=== PATIENT | female | born 1975 | race African-American/Black ===

== ENCOUNTER 2017-11-05 22:29 | Emergency (ER) | payer MEDICAID ==
[~2017-11-05] VITALS: Ht 157.5 cm; Wt 111.4 kg
[2017-11-05] MEDS ORDERED: GABA-533 PO (22:49)
[2017-11-05] MEDS ORDERED: NYST30CR9 TP (22:49)
[2017-11-06] MEDS ORDERED: ONDANSETRON HCL 4 MG/2 ML VIAL IVP ONE
[2017-11-06] MEDS ORDERED: MORPHINE SULFATE 4 MG/ML SYRINGE IVP ONE
[2017-11-06] MEDS ORDERED: SODIUM CHLORIDE 0.9% 1,000 ML IV ONE
[2017-11-06 00:31] LABS: BASOPHILS % (AUTO) 1.2 % (0.0-2.0); EOSINOPHILS % (AUTO) 3.1 % (1.0-6.0); HEMATOCRIT 36.1 % (36-46); HEMOGLOBIN 11.8 g/dL (12.0-16.0); LYMPHOCYTES # (AUTO) 2.4 K/uL (1.0-4.8); LYMPHOCYTES % (AUTO) 39.5 % (22.0-44.0); MEAN CORPUSCULAR HEMOGLOBIN 27.9 pg (26.0-34.0); MEAN CORPUSCULAR HGB CONC 32.6 G/dL (31.0-37.0); MEAN CORPUSCULAR VOLUME 86 fL (80-100); MONOCYTES # (AUTO) 0.4 K/uL (0.1-1.0); MONOCYTES % (AUTO) 7.1 % (2.0-9.0); NEUTROPHILS # (AUTO) 2.9 K/uL (1.8-7.7); NEUTROPHILS % (AUTO) 49.1 % (40.0-70.0); PLATELET COUNT (AUTO) 236 K/uL (150-450); RED CELL DISTRIBUTION WIDTH 14.4 % (11.5-14.5)
[2017-11-06 00:40] LABS: ANION GAP 8 mmol/L (8-16); CALCIUM, TOTAL 8.2 mg/dL (8.8-10.5); CARBON DIOXIDE 26 mmol/L (22-29); CHLORIDE 107 mmol/L (98-107); CREATININE 0.81 mg/dL (0.60-1.30); GLOMERULAR FILTR. RATE CALC > 60 mL/min (>60); GLUCOSE,RANDOM 88 mg/dL (70-110); SODIUM SERUM 141 mmol/L (136-145); UREA NITROGEN, BLOOD 9 mg/dL (7-18)
[2017-11-06 00:46] LABS: ALANINE AMINOTRANSFERASE 18 U/L (12-78); ALKALINE PHOSPHATASE 53 U/L (46-116); ASPARTATE AMINOTRANSFERASE 14 U/L (15-37); BILIRUBIN,TOTAL 0.1 mg/dL (0.1-1.0); LIPASE 99 U/L (73-393); TOTAL PROTEIN, SERUM 6.1 g/dL (6.4-8.2)
[2017-11-06 02:22] LABS: APPEARANCE,URINE CLOUDY (CLEAR); BILIRUBIN,URINE NEGATIVE (NEGATIVE); GLUCOSE, URINE (UA) NEGATIVE (NEGATIVE); KETONES,URINE NEGATIVE (NEGATIVE); LEUKOCYTE ESTERASE ,URINE SMALL (NEGATIVE); NITRATE,URINE NEGATIVE (NEGATIVE); OCCULT BLOOD,URINE LARGE (NEGATIVE); PH,URINE 6.5 (5.0-8.0); PROTEIN,URINE TRACE (NEGATIVE); UROBILINOGEN,URINE 0.2 mg/dL (<=1.0)
[2017-11-06 02:52] LABS: BACTERIA,URINE Rare /HPF (None Seen); SQUAMOUS EPITHELIAL CELL,UR Moderate /LPF (None Seen)
[2017-11-06] MEDS ORDERED: NYSTATIN 30 GM OINTMENT TP ONE (03:45)
[2017-11-06] MEDS ORDERED: CIPROFLOXACIN HCL 250 MG TABLET PO ONE (03:45)
[2017-11-06] MEDS ORDERED: METHOCARBAMOL 500 MG TABLET PO ONE (03:45)
[2017-11-06 04:34] VITALS: BP 129/63
== END 2017-11-06 04:40 | disposition home or self-care (01) ==
LOC: EMS 22:31
DX: R10.9 Unspecified abdominal pain (principal); F17.210 Nicotine dependence, cigarettes, uncomplicated
CPT/HCPCS: 36415; 76856; 80053; 81001; 83690; 84703; 85025; 96374; 96375; 99285; J2270; J2405; J7030

== ENCOUNTER 2018-11-07 10:24 | Emergency (ER) | payer MEDICAID ==
[~2018-11-07] VITALS: Ht 160 cm; Wt 115.0 kg
[~2018-11-07 10:24] MED LIST: ZIPR80CA2 PO
[2018-11-07] MEDS ORDERED: ARIP2 PO (10:43)
[2018-11-07] MEDS ORDERED: GABA-529 PO (10:43)
[2018-11-07] MEDS ORDERED: TRAZ-219 PO (10:43)
[2018-11-07] MEDS ORDERED: KETOROLAC TROMETHAMINE 60 MG/2 ML VIAL IM ONE (12:15)
[2018-11-07 12:20] VITALS: BP 133/84
== END 2018-11-07 12:30 | disposition home or self-care (01) ==
LOC: EMS 10:25
DX: G62.9 Polyneuropathy, unspecified (principal); F20.9 Schizophrenia, unspecified; F17.210 Nicotine dependence, cigarettes, uncomplicated; Z79.899 Other long term (current) drug therapy; Z91.018 Allergy to other foods
CPT/HCPCS: 96372; 99283; J1885

== ENCOUNTER 2023-03-23 18:42 | Emergency (ER) | payer SELFPAY ==
[~2023-03-23] VITALS: Ht 165.1 cm; Wt 72.7 kg
[~2023-03-23 18:42] MED LIST changes: +ARIP2TAB27 PO; +GABA-1216 PO; +TRAZ-252 PO; -ZIPR80CA2 PO
[2023-03-23 18:48] VITALS: TEMP 98.6
[2023-03-23 21:49] VITALS: BP 118/84; PULSE 116; RESP 19
[2023-03-23 22:03] LABS: BASOPHILS % (AUTO) 1.1 % (0.0-2.0); EOSINOPHILS % (AUTO) 6.8 % (1.0-6.0); HEMATOCRIT 33.5 % (36-46); HEMOGLOBIN 10.6 g/dL (12.0-16.0); LYMPHOCYTES # (AUTO) 2.2 K/uL (1.0-4.8); LYMPHOCYTES % (AUTO) 42.1 % (22.0-44.0); MEAN CORPUSCULAR HEMOGLOBIN 26.4 pg (26.0-34.0); MEAN CORPUSCULAR HGB CONC 31.6 G/dL (31.0-37.0); MEAN CORPUSCULAR VOLUME 83 fL (80-100); MONOCYTES # (AUTO) 0.5 K/uL (0.1-1.0); MONOCYTES % (AUTO) 9.8 % (2.0-9.0); NEUTROPHILS # (AUTO) 2.1 K/uL (1.8-7.7); NEUTROPHILS % (AUTO) 40.2 % (40.0-70.0); PLATELET COUNT (AUTO) 331 K/uL (150-450); RED BLOOD CELL COUNT(AUTO) 4.02 MIL/uL (4.00-5.20); RED CELL DISTRIBUTION WIDTH 17.5 % (11.5-14.5)
[2023-03-23 22:11] LABS: ANION GAP 11 mmol/L (8-16); CARBON DIOXIDE 25 mmol/L (22-29); CHLORIDE 100 mmol/L (98-107); CREATININE 1.01 mg/dL (0.60-1.30); GLOMERULAR FILTR. RATE CALC > 60 mL/min (>60); GLUCOSE,RANDOM 96 mg/dL (70-110); POTASSIUM 3.2 mmol/L (3.5-5.1); SODIUM SERUM 136 mmol/L (136-145)
[2023-03-23] MEDS ORDERED: OLANZapine 5 MG TABLET PO ONE (22:15)
[2023-03-23] MEDS ORDERED: DiphenhydrAMINE HCL 25 MG CAPSULE PO ONE (22:15)
[2023-03-23 22:17] LABS: ALANINE AMINOTRANSFERASE 13 U/L (12-78); ALBUMIN 3.8 g/dL (3.4-5.0); ALKALINE PHOSPHATASE 64 U/L (46-116); ASPARTATE AMINOTRANSFERASE 19 U/L (15-37); BILIRUBIN,TOTAL 0.3 mg/dL (0.1-1.0); TOTAL PROTEIN, SERUM 7.8 g/dL (6.4-8.2)
[2023-03-23] MEDS ORDERED: DIPH-1243 PO (22:24)
[2023-03-23] MEDS ORDERED: AMOX500C2 PO (22:24)
[2023-03-23] MEDS ORDERED: AMOXICILLIN TRIHYDRATE 250 MG CAPSULE PO ONE (22:30)
== END 2023-03-23 23:00 | disposition home or self-care (01) ==
LOC: EMS 18:42
DX: H66.91 Otitis media, unspecified, right ear (principal); F20.9 Schizophrenia, unspecified; F17.210 Nicotine dependence, cigarettes, uncomplicated; Z98.51 Tubal ligation status; Z88.1 Allergy status to other antibiotic agents; Z91.018 Allergy to other foods; Z98.890 Other specified postprocedural states
CPT/HCPCS: 99284; 80053; 85025; 36415; G0480

== ENCOUNTER 2023-03-27 03:00 | Emergency (ER) | payer MEDICAID ==
[~2023-03-27] VITALS: Ht 160 cm; Wt 87.0 kg
[~2023-03-27 03:00] MED LIST changes: +AMOX500C2 PO; +DIPH-1243 PO
[2023-03-27] MEDS ORDERED: SODIUM CHLORIDE 0.9% 1,000 ML IV ONE (04:15)
[2023-03-27] MEDS ORDERED: KETOROLAC TROMETHAMINE 30 MG/ML VIAL IM ONE (06:00)
[2023-03-27] MEDS ORDERED: METOCLOPRAMIDE HCL 5 MG/ML 2 ML VIAL IVP ONE (06:00)
[2023-03-27 07:09] VITALS: BP 119/78; PULSE 72; RESP 18; TEMP 97.3
== END 2023-03-27 07:17 | disposition home or self-care (01) ==
LOC: EMS 03:01
DX: R51.9 Headache, unspecified (principal); F20.9 Schizophrenia, unspecified; F17.210 Nicotine dependence, cigarettes, uncomplicated; Z98.51 Tubal ligation status; Z98.890 Other specified postprocedural states; Z91.018 Allergy to other foods; Z88.1 Allergy status to other antibiotic agents
CPT/HCPCS: 99285; 70450; 96372; J1885

== ENCOUNTER 2023-04-01 10:21 | Emergency (ER) | payer MEDICAID ==
[~2023-04-01] VITALS: Ht 160 cm; Wt 75.0 kg
[2023-04-01 10:22] VITALS: TEMP 98.4
[2023-04-01] MEDS ORDERED: ACET-66 PO (13:10)
[2023-04-01] MEDS ORDERED: ARIP5TAB37 PO (13:10)
[2023-04-01] MEDS ORDERED: HYDR-4808 PO (13:10)
[2023-04-01 13:13] VITALS: BP 134/86; PULSE 92; RESP 18
== END 2023-04-01 13:23 | disposition home or self-care (01) ==
LOC: EMS 10:21
DX: R44.0 Auditory hallucinations (principal); F41.9 Anxiety disorder, unspecified; F17.210 Nicotine dependence, cigarettes, uncomplicated; Z98.51 Tubal ligation status; Z98.890 Other specified postprocedural states; Z88.1 Allergy status to other antibiotic agents; Z91.018 Allergy to other foods
CPT/HCPCS: 99284; Z7502

== ENCOUNTER 2023-04-05 16:55 | Emergency (ER) | payer MEDICAID ==
[~2023-04-05] VITALS: Ht 160 cm; Wt 90.9 kg
[~2023-04-05 16:55] MED LIST changes: +ACET-66 PO; +ARIP5TAB37 PO; +HYDR-4808 PO
[2023-04-05 16:58] VITALS: BP 113/71; PULSE 116; RESP 18; TEMP 98.6
[2023-04-05] MEDS ORDERED: IBUPROFEN 600 MG TABLET PO ONE (18:45)
[2023-04-05] MEDS ORDERED: HydrOXYzine PAMOATE 50 MG CAPSULE PO ONE (18:45)
[2023-04-05] MEDS ORDERED: HALOPERIDOL 5 MG TABLET PO ONE (18:45)
[2023-04-05 19:09] LABS: AMPHET/METH SCREEN,URINE POSITIVE (NEGATIVE); BARBITURATE SCREEN, URINE NEGATIVE (NEGATIVE); BENZODIAZEPINES SCREEN,URINE NEGATIVE (NEGATIVE); CANNABINOID SCREEN,URINE NEGATIVE (NEGATIVE); COCAINE SCREEN,URINE NEGATIVE (NEGATIVE); METHADONE SCREEN, URINE NEGATIVE (NEGATIVE); OPIATE SCREEN,URINE NEGATIVE (NEGATIVE); PHENCYCLIDINE SCREEN,URINE NEGATIVE (NEGATIVE)
[2023-04-05 19:44] LABS: BASOPHILS % (AUTO) 0.8 % (0.0-2.0); EOSINOPHILS % (AUTO) 4.3 % (1.0-6.0); HEMATOCRIT 33.1 % (36-46); HEMOGLOBIN 10.4 g/dL (12.0-16.0); LYMPHOCYTES # (AUTO) 1.9 K/uL (1.0-4.8); LYMPHOCYTES % (AUTO) 49.8 % (22.0-44.0); MEAN CORPUSCULAR HEMOGLOBIN 26.6 pg (26.0-34.0); MEAN CORPUSCULAR HGB CONC 31.4 G/dL (31.0-37.0); MEAN CORPUSCULAR VOLUME 85 fL (80-100); MONOCYTES # (AUTO) 0.6 K/uL (0.1-1.0); MONOCYTES % (AUTO) 16.2 % (2.0-9.0); NEUTROPHILS # (AUTO) 1.1 K/uL (1.8-7.7); NEUTROPHILS % (AUTO) 28.9 % (40.0-70.0); PLATELET COUNT (AUTO) 215 K/uL (150-450); RED BLOOD CELL COUNT(AUTO) 3.91 MIL/uL (4.00-5.20); RED CELL DISTRIBUTION WIDTH 16.5 % (11.5-14.5)
[2023-04-05 19:47] LABS: ANION GAP 13 mmol/L (8-16); CALCIUM, TOTAL 8.9 mg/dL (8.8-10.5); CARBON DIOXIDE 28 mmol/L (22-29); CHLORIDE 103 mmol/L (98-107); CREATININE 0.93 mg/dL (0.60-1.30); GLOMERULAR FILTR. RATE CALC > 60 mL/min (>60); GLUCOSE,RANDOM 92 mg/dL (70-110); POTASSIUM 4.3 mmol/L (3.5-5.1); SODIUM SERUM 144 mmol/L (136-145)
[2023-04-05 19:53] LABS: ALANINE AMINOTRANSFERASE 13 U/L (12-78); ALBUMIN 3.7 g/dL (3.4-5.0); ALKALINE PHOSPHATASE 59 U/L (46-116); ASPARTATE AMINOTRANSFERASE 22 U/L (15-37); BILIRUBIN,TOTAL 0.1 mg/dL (0.1-1.0); TOTAL PROTEIN, SERUM 7.2 g/dL (6.4-8.2)
== END 2023-04-05 22:08 | disposition home or self-care (01) ==
LOC: EMS 16:56
DX: F20.9 Schizophrenia, unspecified (principal); M25.551 Pain in right hip; F12.10 Cannabis abuse, uncomplicated; F17.210 Nicotine dependence, cigarettes, uncomplicated; Z98.51 Tubal ligation status; Z98.890 Other specified postprocedural states; Z91.018 Allergy to other foods; Z88.2 Allergy status to sulfonamides
CPT/HCPCS: 99284; 80053; 85025; 36415; 80307; G0480

== ENCOUNTER 2023-04-07 19:23 | Inpatient (IN) | payer MEDICAID ==
[~2023-04-07] VITALS: Ht 160 cm; Wt 89.4 kg
[2023-04-07] MEDS ORDERED: ZOLPIDEM TARTRATE 10 MG TABLET PO PRN (20:45)
[2023-04-07] MEDS ORDERED: PROMETHAZINE HCL 25 MG TABLET PO PRN (20:45)
[2023-04-07] MEDS ORDERED: TUBERCULIN, PURIFIED PROTEIN DERIVATIVE 5 TU/0.1 ML SYRINGE ID ONE (20:45)
[2023-04-07] MEDS ORDERED: OLANZapine 5 MG RAPDIS TABLET PO PRN (20:45)
[2023-04-07] MEDS ORDERED: LOPERAMIDE HCL 2 MG CAPSULE PO PRN (20:45)
[2023-04-07] MEDS ORDERED: ACETAMINOPHEN 325 MG TABLET PO PRN (20:45)
[2023-04-07] MEDS ORDERED: GuaiFENesin/D-METHORPHAN [SUGAR-FREE] 200-20MG/10 ML SYRUP UDCUP PO PRN (20:45)
[2023-04-07] MEDS ORDERED: HydrOXYzine PAMOATE 50 MG CAPSULE PO PRN (20:45)
[2023-04-07] MEDS ORDERED: MAGNESIUM HYDROXIDE SUSPENSION 30 ML UDCUP PO PRN (20:45)
[2023-04-07] MEDS ORDERED: OLANZapine 5 MG RAPDIS TABLET PO SCH (21:00)
[2023-04-07 23:11] LABS: GLUCOMETER DEV NAME(LOC) POC.BV
[2023-04-07] MEDS: MELATONIN 5 MG TABLET PO SCH (23:30)
[2023-04-08] MEDS ORDERED: PNEUMOCOCCAL VACCINE POLYVALENT 0.5 ML SYRINGE [PPSV23] IM. ONE (01:00)
[2023-04-08 01:11] VITALS: BP 102/56; PULSE 104; RESP 17; TEMP 97.8; O2SAT 98
[2023-04-08 08:04] LABS: BASOPHILS % (AUTO) 0.4 % (0.0-2.0); EOSINOPHILS % (AUTO) 5.9 % (1.0-6.0); HEMATOCRIT 32.7 % (36-46); HEMOGLOBIN 10.6 g/dL (12.0-16.0); LYMPHOCYTES # (AUTO) 1.7 K/uL (1.0-4.8); LYMPHOCYTES % (AUTO) 48.5 % (22.0-44.0); MEAN CORPUSCULAR HEMOGLOBIN 27.4 pg (26.0-34.0); MEAN CORPUSCULAR HGB CONC 32.3 G/dL (31.0-37.0); MEAN CORPUSCULAR VOLUME 85 fL (80-100); MONOCYTES # (AUTO) 0.4 K/uL (0.1-1.0); MONOCYTES % (AUTO) 12.2 % (2.0-9.0); NEUTROPHILS # (AUTO) 1.2 K/uL (1.8-7.7); PLATELET COUNT (AUTO) 193 K/uL (150-450); RED BLOOD CELL COUNT(AUTO) 3.86 MIL/uL (4.00-5.20); RED CELL DISTRIBUTION WIDTH 16.6 % (11.5-14.5)
[2023-04-08 08:24] LABS: HEMOGLOBIN A1C 5.1 % (3.8-5.6)
[2023-04-08 08:34] LABS: ALANINE AMINOTRANSFERASE 10 U/L (12-78); ALBUMIN 2.7 g/dL (3.4-5.0); ALKALINE PHOSPHATASE 46 U/L (46-116); ANION GAP 10 mmol/L (8-16); ASPARTATE AMINOTRANSFERASE 11 U/L (15-37); BILIRUBIN,TOTAL 0.1 mg/dL (0.1-1.0); CALCIUM, TOTAL 8.3 mg/dL (8.8-10.5); CARBON DIOXIDE 27 mmol/L (22-29); CHLORIDE 105 mmol/L (98-107); CHOL/HDL RATIO 3.4 (3.9-5.7); CHOLESTEROL 144 mg/dL (131-200); CREATININE 0.85 mg/dL (0.60-1.30); FREE T4 (FREE THYROXINE) 0.68 ng/dL (0.76-1.46); GLOMERULAR FILTR. RATE CALC > 60 mL/min (>60); GLUCOSE,RANDOM 86 mg/dL (70-110); HDL CHOLESTEROL 42 mg/dL (40-60); LDL CHOL (CALC.) 90 mg/dL (0-130); POTASSIUM 4.3 mmol/L (3.5-5.1); SODIUM SERUM 142 mmol/L (136-145); THYROID STIMULATING HORMONE 0.41 uIU/mL (0.36-3.74); TOTAL PROTEIN, SERUM 5.6 g/dL (6.4-8.2); TRIGLYCERIDES 62 mg/dL (15-150)
[2023-04-08 08:44] VITALS: BP 102/63; PULSE 64; RESP 17; TEMP 98; O2SAT 100
[2023-04-08] MEDS: BuPROPion HCL XL 150 MG ER TABLET PO SCH (08:45)
[2023-04-08] MEDS: THIAMINE 100 MG TABLET PO SCH ×2 (08:45→17:17)
[2023-04-08] MEDS: FOLIC ACID 1 MG TABLET PO SCH (08:45)
[2023-04-08] MEDS: OMEGA-3/DHA/EPA/FISH OIL 1,000 MG CAPSULE PO SCH (08:45)
[2023-04-08] MEDS ORDERED: PALIPERIDONE PALMITATE 234 MG/1.5 ML SYRINGE IM ONE (09:00)
[2023-04-08] MEDS: MULTIVITAMINS WITH MINERALS, THERAPEUTIC TABLET PO SCH (09:03)
[2023-04-08 20:31] VITALS: BP 100/68; PULSE 81; RESP 18; TEMP 98.2; O2SAT 95
[2023-04-08] MEDS: ARIPiprazole 15 MG TABLET PO SCH (20:44)
[2023-04-08] MEDS: TraZODone HCL 50 MG TABLET PO SCH (20:44)
[2023-04-08] MEDS: MELATONIN 5 MG TABLET PO SCH (20:44)
[2023-04-08] MEDS: PRAZOSIN HCL 1 MG CAPSULE PO SCH (20:44)
[2023-04-09 08:36] VITALS: BP 113/84; PULSE 97; RESP 18; TEMP 97.9; O2SAT 100
[2023-04-09] MEDS: MULTIVITAMINS WITH MINERALS, THERAPEUTIC TABLET PO SCH (08:54)
[2023-04-09] MEDS: THIAMINE 100 MG TABLET PO SCH ×2 (08:54→16:46)
[2023-04-09] MEDS: OMEGA-3/DHA/EPA/FISH OIL 1,000 MG CAPSULE PO SCH (08:54)
[2023-04-09] MEDS: LamoTRIgine 25 MG TABLET PO SCH (08:55)
[2023-04-09] MEDS: BuPROPion HCL XL 150 MG ER TABLET PO SCH (08:55)
[2023-04-09] MEDS: DEXTROMETHORPHAN HBR/QUINIDINE 20/10 MG CAPSULE PO SCH (08:56)
[2023-04-09] MEDS: FOLIC ACID 1 MG TABLET PO SCH (08:56)
[2023-04-09] MEDS: LORazepam 2 MG TABLET PO PRN (16:46)
[2023-04-09 20:37] VITALS: BP 101/68; PULSE 80; RESP 19; TEMP 98.1; O2SAT 99
[2023-04-09] MEDS: ARIPiprazole 15 MG TABLET PO SCH (20:46)
[2023-04-09] MEDS: MELATONIN 5 MG TABLET PO SCH (20:46)
[2023-04-09] MEDS: TraZODone HCL 50 MG TABLET PO SCH (20:46)
[2023-04-09] MEDS: PRAZOSIN HCL 1 MG CAPSULE PO SCH (22:55)
[2023-04-10 08:33] VITALS: BP 110/68; PULSE 90; RESP 19; TEMP 98.8; O2SAT 99
[2023-04-10] MEDS: DEXTROMETHORPHAN HBR/QUINIDINE 20/10 MG CAPSULE PO SCH (09:57)
[2023-04-10] MEDS: OMEGA-3/DHA/EPA/FISH OIL 1,000 MG CAPSULE PO SCH (09:57)
[2023-04-10] MEDS: LamoTRIgine 25 MG TABLET PO SCH (09:58)
[2023-04-10] MEDS: BuPROPion HCL XL 150 MG ER TABLET PO SCH (09:58)
[2023-04-10] MEDS: FOLIC ACID 1 MG TABLET PO SCH (09:59)
[2023-04-10] MEDS: MULTIVITAMINS WITH MINERALS, THERAPEUTIC TABLET PO SCH (09:59)
[2023-04-10] MEDS: THIAMINE 100 MG TABLET PO SCH ×2 (09:59→17:11)
[2023-04-10] MEDS: MAG HYDROX/AL HYDROX/SIMETH ES 30 ML SUSPENSION UDCUP PO PRN (14:42)
[2023-04-10] MEDS ORDERED: NICOTINE POLACRILEX 2 MG LOZENGE PO PRN ×2 (14:45)
[2023-04-10] MEDS: TraZODone HCL 50 MG TABLET PO SCH (20:01)
[2023-04-10] MEDS: ARIPiprazole 10 MG TABLET PO SCH (20:01)
[2023-04-10] MEDS: MELATONIN 5 MG TABLET PO SCH (20:02)
[2023-04-10 20:27] VITALS: BP 104/67; PULSE 74; RESP 19; TEMP 97.5; O2SAT 96
[2023-04-10] MEDS: PRAZOSIN HCL 1 MG CAPSULE PO SCH (20:43)
[2023-04-11 08:41] VITALS: BP 102/61; PULSE 65; RESP 19; TEMP 97.7; O2SAT 95
[2023-04-11] MEDS: FOLIC ACID 1 MG TABLET PO SCH (09:33)
[2023-04-11] MEDS: THIAMINE 100 MG TABLET PO SCH ×2 (09:33→16:17)
[2023-04-11] MEDS: DEXTROMETHORPHAN HBR/QUINIDINE 20/10 MG CAPSULE PO SCH (09:33)
[2023-04-11] MEDS: OMEGA-3/DHA/EPA/FISH OIL 1,000 MG CAPSULE PO SCH (09:33)
[2023-04-11] MEDS: LamoTRIgine 25 MG TABLET PO SCH (09:33)
[2023-04-11] MEDS: MULTIVITAMINS WITH MINERALS, THERAPEUTIC TABLET PO SCH (09:34)
[2023-04-11] MEDS: BuPROPion HCL XL 150 MG ER TABLET PO SCH (09:34)
[2023-04-11] MEDS ORDERED: OLANZapine 5 MG RAPDIS TABLET PO PRN (11:45)
[2023-04-11] MEDS: LORazepam 2 MG TABLET PO PRN (15:56)
[2023-04-11] MEDS: OLANZapine 10 MG RAPDIS TABLET PO SCH (20:35)
[2023-04-11] MEDS: PRAZOSIN HCL 1 MG CAPSULE PO SCH (20:35)
[2023-04-11] MEDS: TraZODone HCL 50 MG TABLET PO SCH (20:35)
[2023-04-11] MEDS: MELATONIN 5 MG TABLET PO SCH (20:35)
[2023-04-11] MEDS: ARIPiprazole 10 MG TABLET PO SCH (20:35)
[2023-04-11 21:20] VITALS: BP 109/70; PULSE 67; RESP 19; TEMP 98.2; O2SAT 100
[2023-04-12] MEDS: DEXTROMETHORPHAN HBR/QUINIDINE 20/10 MG CAPSULE PO SCH (08:46)
[2023-04-12] MEDS: OMEGA-3/DHA/EPA/FISH OIL 1,000 MG CAPSULE PO SCH (08:46)
[2023-04-12] MEDS: FOLIC ACID 1 MG TABLET PO SCH (08:47)
[2023-04-12] MEDS: MULTIVITAMINS WITH MINERALS, THERAPEUTIC TABLET PO SCH (08:47)
[2023-04-12] MEDS: LamoTRIgine 25 MG TABLET PO SCH (08:47)
[2023-04-12] MEDS: BuPROPion HCL XL 150 MG ER TABLET PO SCH (08:47)
[2023-04-12] MEDS: THIAMINE 100 MG TABLET PO SCH ×2 (08:47→16:27)
[2023-04-12 09:00] VITALS: BP 110/71; PULSE 100; RESP 20; TEMP 98; O2SAT 98
[2023-04-12] MEDS ORDERED: PALIPERIDONE PALMITATE 156 MG/ML SYRINGE IM ONE (09:00)
[2023-04-12] MEDS: LORazepam 2 MG TABLET PO PRN (16:27)
[2023-04-12] MEDS: MAG HYDROX/AL HYDROX/SIMETH ES 30 ML SUSPENSION UDCUP PO PRN (16:29)
[2023-04-12] MEDS: ARIPiprazole 10 MG TABLET PO SCH (20:15)
[2023-04-12] MEDS: MELATONIN 5 MG TABLET PO SCH (20:15)
[2023-04-12] MEDS: TraZODone HCL 50 MG TABLET PO SCH (20:15)
[2023-04-12] MEDS: PRAZOSIN HCL 1 MG CAPSULE PO SCH (20:15)
[2023-04-12] MEDS: OLANZapine 10 MG RAPDIS TABLET PO SCH (20:15)
[2023-04-12 20:28] VITALS: BP 113/71; PULSE 105; RESP 18; TEMP 97.6; O2SAT 98
[2023-04-13] MEDS: LamoTRIgine 25 MG TABLET PO SCH (08:24)
[2023-04-13] MEDS: MULTIVITAMINS WITH MINERALS, THERAPEUTIC TABLET PO SCH (08:24)
[2023-04-13] MEDS: BuPROPion HCL XL 150 MG ER TABLET PO SCH (08:24)
[2023-04-13] MEDS: OMEGA-3/DHA/EPA/FISH OIL 1,000 MG CAPSULE PO SCH (08:24)
[2023-04-13] MEDS: FOLIC ACID 1 MG TABLET PO SCH (08:24)
[2023-04-13] MEDS: DEXTROMETHORPHAN HBR/QUINIDINE 20/10 MG CAPSULE PO SCH (08:24)
[2023-04-13] MEDS: THIAMINE 100 MG TABLET PO SCH ×2 (08:24→16:43)
[2023-04-13 08:31] VITALS: RESP 19
[2023-04-13] MEDS: MAG HYDROX/AL HYDROX/SIMETH ES 30 ML SUSPENSION UDCUP PO PRN (14:37)
[2023-04-13] MEDS: LORazepam 2 MG TABLET PO PRN (14:37)
[2023-04-13 20:16] VITALS: BP 109/68; PULSE 99; RESP 18; TEMP 97.8; O2SAT 98
[2023-04-13] MEDS: OLANZapine 10 MG RAPDIS TABLET PO SCH (20:37)
[2023-04-13] MEDS: ARIPiprazole 10 MG TABLET PO SCH (20:37)
[2023-04-13] MEDS: TraZODone HCL 50 MG TABLET PO SCH (20:38)
[2023-04-13] MEDS: MELATONIN 5 MG TABLET PO SCH (20:38)
[2023-04-13] MEDS: PRAZOSIN HCL 1 MG CAPSULE PO SCH (20:38)
[2023-04-14 08:46] VITALS: BP 100/67; PULSE 69; RESP 18; TEMP 97.3; O2SAT 100
[2023-04-14] MEDS: OMEGA-3/DHA/EPA/FISH OIL 1,000 MG CAPSULE PO SCH (09:19)
[2023-04-14] MEDS: THIAMINE 100 MG TABLET PO SCH ×2 (09:20→16:26)
[2023-04-14] MEDS: LamoTRIgine 25 MG TABLET PO SCH (09:20)
[2023-04-14] MEDS: FOLIC ACID 1 MG TABLET PO SCH (09:20)
[2023-04-14] MEDS: BuPROPion HCL XL 150 MG ER TABLET PO SCH (09:20)
[2023-04-14] MEDS: DEXTROMETHORPHAN HBR/QUINIDINE 20/10 MG CAPSULE PO SCH (09:20)
[2023-04-14] MEDS: MULTIVITAMINS WITH MINERALS, THERAPEUTIC TABLET PO SCH (09:21)
[2023-04-14] MEDS ORDERED: MELA5TAB40 PO (15:18)
[2023-04-14] MEDS ORDERED: TRAZ-252 PO (15:18)
[2023-04-14] MEDS ORDERED: LAMO25TA36 PO ×2 (15:18→15:45)
[2023-04-14] MEDS ORDERED: OMEG-135 PO (15:18)
[2023-04-14] MEDS ORDERED: OLAN10TA26 PO (15:18)
[2023-04-14] MEDS ORDERED: BUPR-49 PO (15:18)
[2023-04-14] MEDS ORDERED: BUPR-50 PO (15:39)
[2023-04-14] MEDS ORDERED: MELA5TAB21 PO (15:47)
[2023-04-14] MEDS ORDERED: OLAN10TA74 PO (15:48)
[2023-04-14] MEDS ORDERED: OMEG10005 PO (15:49)
== END 2023-04-14 17:30 | disposition home or self-care (01) | DRG 750 ==
LOC: B2S 22:56
PROVIDERS: ADMIT Psychiatry & Neurology Psychiatry; ATTEND Psychiatry & Neurology Psychiatry
DX: F25.1 Schizoaffective disorder, depressive type (principal); Z91.148 Patient's other noncompliance with medication regimen for other reason; R45.851 Suicidal ideations; D64.9 Anemia, unspecified; J44.9 Chronic obstructive pulmonary disease, unspecified; F19.10 Other psychoactive substance abuse, uncomplicated; F17.210 Nicotine dependence, cigarettes, uncomplicated; Z20.822 Contact with and (suspected) exposure to COVID-19; F32.A Depression, unspecified; D72.819 Decreased white blood cell count, unspecified; E66.9 Obesity, unspecified; F43.10 Post-traumatic stress disorder, unspecified; Z79.899 Other long term (current) drug therapy; Z59.00 Homelessness unspecified; Z68.34 Body mass index [BMI] 34.0-34.9, adult; Z88.8 Allergy status to other drugs, medicaments and biological substances; Z91.018 Allergy to other foods
CPT/HCPCS: 80053; 80061; 83036; 84439; 84443; 85025; 86592; 87081; 90732; Q9967

== ENCOUNTER 2023-05-07 18:13 | Emergency (ER) | payer MEDICAID ==
[~2023-05-07] VITALS: Ht 154.9 cm; Wt 85.5 kg
[~2023-05-07 18:13] MED LIST changes: -ACET-66 PO; -AMOX500C2 PO; -ARIP2TAB27 PO; -ARIP5TAB37 PO; +BUPR-49 PO; +BUPR-50 PO; -DIPH-1243 PO; -GABA-1216 PO; -HYDR-4808 PO; +LAMO25TA36 PO; +MELA5TAB21 PO; +MELA5TAB40 PO; +OLAN10TA26 PO; +OLAN10TA74 PO; +OMEG-135 PO; +OMEG10005 PO
[2023-05-07 18:54] VITALS: TEMP 98.6
[2023-05-07 20:24] LABS: BASOPHILS % (AUTO) 0.7 % (0.0-2.0); EOSINOPHILS % (AUTO) 5.9 % (1.0-6.0); HEMATOCRIT 33.6 % (36-46); HEMOGLOBIN 10.9 g/dL (12.0-16.0); LYMPHOCYTES # (AUTO) 2.2 K/uL (1.0-4.8); LYMPHOCYTES % (AUTO) 49.2 % (22.0-44.0); MEAN CORPUSCULAR HEMOGLOBIN 27.5 pg (26.0-34.0); MEAN CORPUSCULAR HGB CONC 32.4 G/dL (31.0-37.0); MEAN CORPUSCULAR VOLUME 85 fL (80-100); MONOCYTES # (AUTO) 0.5 K/uL (0.1-1.0); MONOCYTES % (AUTO) 10.4 % (2.0-9.0); NEUTROPHILS # (AUTO) 1.5 K/uL (1.8-7.7); NEUTROPHILS % (AUTO) 33.8 % (40.0-70.0); PLATELET COUNT (AUTO) 251 K/uL (150-450); RED BLOOD CELL COUNT(AUTO) 3.96 MIL/uL (4.00-5.20); RED CELL DISTRIBUTION WIDTH 16.3 % (11.5-14.5); WHITE BLOOD COUNT (AUTO) 4.5 K/uL (4.5-11.0)
[2023-05-07 20:33] LABS: ANION GAP 7 mmol/L (8-16); CALCIUM, TOTAL 8.7 mg/dL (8.8-10.5); CARBON DIOXIDE 27 mmol/L (22-29); CHLORIDE 103 mmol/L (98-107); GLOMERULAR FILTR. RATE CALC > 60 mL/min (>60); GLUCOSE,RANDOM 70 mg/dL (70-110); SODIUM SERUM 137 mmol/L (136-145); UREA NITROGEN, BLOOD 12 mg/dL (7-18)
[2023-05-07 20:39] LABS: ALANINE AMINOTRANSFERASE 11 U/L (12-78); ALBUMIN 3.6 g/dL (3.4-5.0); ALKALINE PHOSPHATASE 58 U/L (46-116); ASPARTATE AMINOTRANSFERASE 14 U/L (15-37); BILIRUBIN,TOTAL 0.1 mg/dL (0.1-1.0); TOTAL PROTEIN, SERUM 7.1 g/dL (6.4-8.2)
[2023-05-07 20:53] LABS: ALCOHOL, BLOOD (SERUM) < 3 mg/dL (0-10)
[2023-05-07 21:40] LABS: ALCOHOL, URINE DRUG SCREEN NEGATIVE (NEGATIVE); AMPHET/METH SCREEN,URINE POSITIVE (NEGATIVE); BARBITURATE SCREEN, URINE NEGATIVE (NEGATIVE); BENZODIAZEPINES SCREEN,URINE NEGATIVE (NEGATIVE); CANNABINOID SCREEN,URINE POSITIVE (NEGATIVE); COCAINE SCREEN,URINE NEGATIVE (NEGATIVE); METHADONE SCREEN, URINE NEGATIVE (NEGATIVE); OPIATE SCREEN,URINE NEGATIVE (NEGATIVE); PHENCYCLIDINE SCREEN,URINE POSITIVE (NEGATIVE)
[2023-05-07 22:30] VITALS: BP 104/64; PULSE 71; RESP 17
== END 2023-05-07 23:40 | disposition home or self-care (01) ==
LOC: EMS 18:14
DX: S92.592A Other fracture of left lesser toe(s), initial encounter for closed fracture (principal); F20.9 Schizophrenia, unspecified; F12.90 Cannabis use, unspecified, uncomplicated; F15.90 Other stimulant use, unspecified, uncomplicated; F17.210 Nicotine dependence, cigarettes, uncomplicated; Z98.51 Tubal ligation status; Z91.018 Allergy to other foods; Z88.1 Allergy status to other antibiotic agents; Z98.890 Other specified postprocedural states; W18.39XA Other fall on same level, initial encounter; Y93.89 Activity, other specified; Y92.89 Other specified places as the place of occurrence of the external cause; Y99.8 Other external cause status
CPT/HCPCS: 80053; 85025; 36415; 73620; 99284; 80307 ×2; G0480

== ENCOUNTER 2023-05-10 14:55 | Emergency (ER) | payer MEDICAID ==
[~2023-05-10] VITALS: Ht 160 cm; Wt 84.1 kg
[2023-05-10 15:16] VITALS: BP 119/85; PULSE 94; RESP 18; TEMP 98.2
[2023-05-10 16:11] LABS: APPEARANCE,URINE CLEAR (CLEAR); BILIRUBIN,URINE NEGATIVE (NEGATIVE); COLOR,URINE LIGHT YELLOW (YELLOW); GLUCOSE, URINE (UA) NEGATIVE (NEGATIVE); KETONES,URINE NEGATIVE (NEGATIVE); LEUKOCYTE ESTERASE ,URINE NEGATIVE (NEGATIVE); NITRATE,URINE NEGATIVE (NEGATIVE); OCCULT BLOOD,URINE LARGE (NEGATIVE); PH,URINE 6.5 (5.0-8.0); PROTEIN,URINE NEGATIVE (NEGATIVE); SPECIFIC GRAVITIY, URINE 1.021 (1.003-1.030); UROBILINOGEN,URINE <=1.0 mg/dL (<=1.0)
[2023-05-10 16:39] LABS: SQUAMOUS EPITHELIAL CELL,UR Few /LPF (None Seen)
[2023-05-10 16:41] LABS: RBC,URINE 0-2 /HPF (0-2); WBC,URINE 0-2 /HPF (0-5)
[2023-05-10 16:43] LABS: BACTERIA,URINE None Seen /HPF (None Seen)
[2023-05-10] MEDS ORDERED: AZITHROMYCIN 500 MG TABLET PO ONE (17:00)
[2023-05-10] MEDS ORDERED: LIDOCAINE/PF 1% 2 ML VIAL IM ONE (17:00)
[2023-05-10] MEDS ORDERED: CefTRIAXone SODIUM 1 GM/VIAL IM ONE (17:00)
== END 2023-05-10 17:04 | disposition home or self-care (01) ==
LOC: EMS 15:00
DX: N34.2 Other urethritis (principal); F20.9 Schizophrenia, unspecified; F17.210 Nicotine dependence, cigarettes, uncomplicated; F12.90 Cannabis use, unspecified, uncomplicated; F15.90 Other stimulant use, unspecified, uncomplicated; Z98.51 Tubal ligation status; Z98.890 Other specified postprocedural states; Z88.1 Allergy status to other antibiotic agents; Z91.018 Allergy to other foods
CPT/HCPCS: 99283; 81001; 87491; 87591; 96372; J0696; J3490; Q9967

== ENCOUNTER 2023-06-07 08:26 | Emergency (ER) | payer MEDICAID, OTHER ==
[~2023-06-07] VITALS: Ht 160 cm; Wt 97.7 kg
[2023-06-07 08:39] VITALS: TEMP 97.8
[2023-06-07] MEDS ORDERED: EMTR1TAB53 PO ×2 (08:43→10:09)
[2023-06-07 09:01] LABS: APPEARANCE,URINE CLEAR (CLEAR); BILIRUBIN,URINE NEGATIVE (NEGATIVE); COLOR,URINE LIGHT YELLOW (YELLOW); GLUCOSE, URINE (UA) NEGATIVE (NEGATIVE); KETONES,URINE NEGATIVE (NEGATIVE); LEUKOCYTE ESTERASE ,URINE NEGATIVE (NEGATIVE); NITRATE,URINE NEGATIVE (NEGATIVE); OCCULT BLOOD,URINE LARGE (NEGATIVE); PH,URINE 6.5 (5.0-8.0); PROTEIN,URINE NEGATIVE (NEGATIVE); SPECIFIC GRAVITIY, URINE 1.013 (1.003-1.030); UROBILINOGEN,URINE <=1.0 mg/dL (<=1.0)
[2023-06-07 09:06] LABS: BACTERIA,URINE None Seen /HPF (None Seen); SQUAMOUS EPITHELIAL CELL,UR Few /LPF (None Seen); WBC,URINE None Seen /HPF (0-5)
[2023-06-07 09:28] LABS: BASOPHILS % (AUTO) 1.2 % (0.0-2.0); EOSINOPHILS % (AUTO) 3.1 % (1.0-6.0); HEMATOCRIT 38.4 % (36-46); HEMOGLOBIN 12.3 g/dL (12.0-16.0); LYMPHOCYTES # (AUTO) 1.6 K/uL (1.0-4.8); LYMPHOCYTES % (AUTO) 40.3 % (22.0-44.0); MEAN CORPUSCULAR HEMOGLOBIN 27.4 pg (26.0-34.0); MEAN CORPUSCULAR VOLUME 86 fL (80-100); MONOCYTES # (AUTO) 0.4 K/uL (0.1-1.0); MONOCYTES % (AUTO) 10.3 % (2.0-9.0); NEUTROPHILS # (AUTO) 1.8 K/uL (1.8-7.7); NEUTROPHILS % (AUTO) 45.1 % (40.0-70.0); PLATELET COUNT (AUTO) 284 K/uL (150-450); RED BLOOD CELL COUNT(AUTO) 4.48 MIL/uL (4.00-5.20); RED CELL DISTRIBUTION WIDTH 15.7 % (11.5-14.5)
[2023-06-07 09:43] LABS: ANION GAP 10 mmol/L (8-16); CALCIUM, TOTAL 8.7 mg/dL (8.8-10.5); CARBON DIOXIDE 26 mmol/L (22-29); CHLORIDE 101 mmol/L (98-107); CREATININE 0.88 mg/dL (0.60-1.30); GLOMERULAR FILTR. RATE CALC > 60 mL/min (>60); GLUCOSE,RANDOM 75 mg/dL (70-110); POTASSIUM 4.1 mmol/L (3.5-5.1); SODIUM SERUM 137 mmol/L (136-145); UREA NITROGEN, BLOOD 13 mg/dL (7-18)
[2023-06-07 09:49] LABS: ALANINE AMINOTRANSFERASE 16 U/L (12-78); ALBUMIN 3.6 g/dL (3.4-5.0); ALKALINE PHOSPHATASE 52 U/L (46-116); ASPARTATE AMINOTRANSFERASE 13 U/L (15-37); BILIRUBIN,TOTAL 0.2 mg/dL (0.1-1.0); TOTAL PROTEIN, SERUM 7.5 g/dL (6.4-8.2)
[2023-06-07] MEDS ORDERED: MELA5TAB40 PO (10:09)
[2023-06-07] MEDS ORDERED: OMEG10005 PO (10:09)
[2023-06-07] MEDS ORDERED: HYDR59LO7 TP (10:09)
[2023-06-07] MEDS ORDERED: LAMO25TA36 PO (10:09)
[2023-06-07] MEDS ORDERED: TRAZ-252 PO (10:09)
[2023-06-07] MEDS ORDERED: BUPR-49 PO (10:09)
[2023-06-07 10:15] VITALS: BP 120/70; PULSE 85; RESP 14
== END 2023-06-07 10:41 | disposition home or self-care (01) ==
LOC: EMS 08:57
DX: F25.9 Schizoaffective disorder, unspecified (principal); L29.9 Pruritus, unspecified; F12.90 Cannabis use, unspecified, uncomplicated; F15.90 Other stimulant use, unspecified, uncomplicated; F17.210 Nicotine dependence, cigarettes, uncomplicated; Z98.51 Tubal ligation status; Z98.890 Other specified postprocedural states; Z91.018 Allergy to other foods; Z88.1 Allergy status to other antibiotic agents
CPT/HCPCS: 80053; 81001; 84703; 85025; 99283

== ENCOUNTER 2023-09-30 09:25 | Emergency (ER) | payer OTHER ==
[~2023-09-30] VITALS: Ht 157.5 cm; Wt 110.0 kg
[~2023-09-30 09:25] MED LIST changes: -BUPR-50 PO; +EMTR1TAB53 PO; +HYDR59LO7 TP; -MELA5TAB21 PO; -OLAN10TA26 PO; -OLAN10TA74 PO; -OMEG-135 PO
[2023-09-30 09:33] VITALS: BP 118/88; PULSE 120; RESP 22; TEMP 96.5
[2023-09-30 11:28] LABS: BASOPHILS % (AUTO) 0.7 % (0.0-2.0); HEMATOCRIT 40.1 % (36-46); HEMOGLOBIN 12.6 g/dL (12.0-16.0); MEAN CORPUSCULAR HEMOGLOBIN 27.7 pg (26.0-34.0); MEAN CORPUSCULAR HGB CONC 31.5 G/dL (31.0-37.0); MEAN CORPUSCULAR VOLUME 88 fL (80-100); MONOCYTES # (AUTO) 0.4 K/uL (0.1-1.0); NEUTROPHILS # (AUTO) 3.4 K/uL (1.8-7.7); NEUTROPHILS % (AUTO) 55.3 % (40.0-70.0); PLATELET COUNT (AUTO) 259 K/uL (150-450); RED BLOOD CELL COUNT(AUTO) 4.56 MIL/uL (4.00-5.20); WHITE BLOOD COUNT (AUTO) 6.1 K/uL (4.5-11.0)
[2023-09-30 11:45] LABS: ANION GAP 12 mmol/L (8-16); CALCIUM, TOTAL 8.7 mg/dL (8.8-10.5); CARBON DIOXIDE 23 mmol/L (22-29); CHLORIDE 102 mmol/L (98-107); CREATININE 0.85 mg/dL (0.60-1.30); GLOMERULAR FILTR. RATE CALC > 60 mL/min (>60); GLUCOSE,RANDOM 110 mg/dL (70-110); POTASSIUM 3.7 mmol/L (3.5-5.1); SODIUM SERUM 137 mmol/L (136-145); UREA NITROGEN, BLOOD 14 mg/dL (7-18)
[2023-09-30 11:54] LABS: ALANINE AMINOTRANSFERASE 25 U/L (12-78); ALBUMIN 3.8 g/dL (3.4-5.0); ALCOHOL, BLOOD (SERUM) < 3 mg/dL (0-10); ALKALINE PHOSPHATASE 69 U/L (46-116); ASPARTATE AMINOTRANSFERASE 25 U/L (15-37); BILIRUBIN,TOTAL 0.3 mg/dL (0.1-1.0); TOTAL PROTEIN, SERUM 7.3 g/dL (6.4-8.2)
[2023-09-30 13:09] LABS: COVID AG,FIA SOURCE NASAL SWAB
[2023-09-30 13:35] LABS: SARS-COV2 (COVID) ANTIGEN,FIA Negative (Negative)
== END 2023-09-30 14:30 | disposition home or self-care (01) ==
LOC: EMS 09:25
DX: F20.0 Paranoid schizophrenia (principal); F15.10 Other stimulant abuse, uncomplicated; F11.90 Opioid use, unspecified, uncomplicated; F17.210 Nicotine dependence, cigarettes, uncomplicated; F12.90 Cannabis use, unspecified, uncomplicated; Z59.00 Homelessness unspecified; Z20.822 Contact with and (suspected) exposure to COVID-19; Z98.51 Tubal ligation status; Z98.890 Other specified postprocedural states; Z88.1 Allergy status to other antibiotic agents; Z91.011 Allergy to milk products; Z91.018 Allergy to other foods
CPT/HCPCS: 99283; 87426; 80053; 85025; 36415; G0480

== ENCOUNTER 2023-10-07 18:20 | Inpatient (IN) | payer MEDICAID ==
[~2023-10-07] VITALS: Ht 160 cm; Wt 98.4 kg
[2023-10-07] MEDS ORDERED: HALOPERIDOL 5 MG TABLET PO PRN (20:30)
[2023-10-07 20:50] LABS: GLUCOMETER DEV NAME(LOC) POC.BV; POC SARS-COV2 AG, FIA NEGATIVE (NEGATIVE)
[2023-10-07] MEDS: INFLUENZA VIRUS VACCINE QVS 2023-24 (6MO+)/PF 60 MCG/0.5 ML SYRINGE IM. ONE (21:45)
[2023-10-07 22:35] VITALS: BP 111/74; PULSE 100; RESP 18; TEMP 97.6
[2023-10-08 08:12] VITALS: BP 118/77; PULSE 96; RESP 17; TEMP 97.8; O2SAT 96
[2023-10-08 08:32] LABS: EOSINOPHILS % (AUTO) 7.8 % (1.0-6.0); HEMATOCRIT 37.9 % (36-46); HEMOGLOBIN 12.4 g/dL (12.0-16.0); MEAN CORPUSCULAR HEMOGLOBIN 28.4 pg (26.0-34.0); MEAN CORPUSCULAR HGB CONC 32.8 G/dL (31.0-37.0); MEAN CORPUSCULAR VOLUME 87 fL (80-100); MONOCYTES # (AUTO) 0.5 K/uL (0.1-1.0); MONOCYTES % (AUTO) 9.5 % (2.0-9.0); NEUTROPHILS # (AUTO) 2.3 K/uL (1.8-7.7); NEUTROPHILS % (AUTO) 42.7 % (40.0-70.0); PLATELET COUNT (AUTO) 298 K/uL (150-450); RED BLOOD CELL COUNT(AUTO) 4.38 MIL/uL (4.00-5.20); RED CELL DISTRIBUTION WIDTH 14.7 % (11.5-14.5); WHITE BLOOD COUNT (AUTO) 5.3 K/uL (4.5-11.0)
[2023-10-08 08:46] LABS: HEMOGLOBIN A1C 5.5 % (3.8-5.6)
[2023-10-08 09:06] LABS: ALANINE AMINOTRANSFERASE 19 U/L (12-78); ALBUMIN 3.3 g/dL (3.4-5.0); ALKALINE PHOSPHATASE 62 U/L (46-116); ANION GAP 7 mmol/L (8-16); ASPARTATE AMINOTRANSFERASE 16 U/L (15-37); BILIRUBIN,TOTAL 0.3 mg/dL (0.1-1.0); CALCIUM, TOTAL 8.9 mg/dL (8.8-10.5); CARBON DIOXIDE 28 mmol/L (22-29); CHLORIDE 104 mmol/L (98-107); CHOL/HDL RATIO 3.8 (3.9-5.7); CHOLESTEROL 169 mg/dL (131-200); CREATININE 0.84 mg/dL (0.60-1.30); FREE T4 (FREE THYROXINE) 1.01 ng/dL (0.76-1.46); GLOMERULAR FILTR. RATE CALC > 60 mL/min (>60); GLUCOSE,RANDOM 105 mg/dL (70-110); HDL CHOLESTEROL 44 mg/dL (40-60); LDL CHOL (CALC.) 110 mg/dL (0-130); POTASSIUM 3.9 mmol/L (3.5-5.1); SODIUM SERUM 139 mmol/L (136-145); THYROID STIMULATING HORMONE 1.02 uIU/mL (0.36-3.74); TOTAL PROTEIN, SERUM 6.8 g/dL (6.4-8.2); TRIGLYCERIDES 75 mg/dL (15-150); UREA NITROGEN, BLOOD 14 mg/dL (7-18)
[2023-10-08] MEDS: LURASIDONE HCL 20 MG TABLET PO ONE (12:15)
[2023-10-08] MEDS: LURASIDONE HCL 20 MG TABLET PO SCH (17:28)
[2023-10-08] MEDS ORDERED: ALBUTEROL SULFATE HFA 90 MCG/PUFF 8 GM INHALER IH PRN (17:45)
[2023-10-08] MEDS ORDERED: CloNIDine HCL 0.1 MG TABLET PO PRN (17:45)
[2023-10-08] MEDS ORDERED: NICOTINE 14 MG/24 HOUR PATCH TD PRN (17:45)
[2023-10-08] MEDS ORDERED: MAGNESIUM HYDROXIDE SUSPENSION 30 ML UDCUP PO PRN (17:45)
[2023-10-08] MEDS ORDERED: MAG HYDROX/ALUMINUM HYD/SIMETH ES 30 ML SUSPENSION UDCUP PO PRN (17:45)
[2023-10-08] MEDS ORDERED: DOCUSATE SODIUM 100 MG CAPSULE PO PRN (17:45)
[2023-10-08] MEDS ORDERED: PETROLATUM,WHITE 28 GM JELLY TP PRN (17:45)
[2023-10-08] MEDS ORDERED: GuaiFENesin/D-METHORPHAN [SUGAR-FREE] 200-20MG/10 ML SYRUP UDCUP PO PRN (17:45)
[2023-10-08 20:09] VITALS: BP 122/62; PULSE 110; RESP 19; TEMP 98.3; O2SAT 94
[2023-10-08] MEDS: MELATONIN 5 MG TABLET PO SCH (20:59)
[2023-10-09 08:05] VITALS: BP 101/59; PULSE 86; RESP 16; TEMP 97.9; O2SAT 96
[2023-10-09 08:33] LABS: HEMOGLOBIN A1C 5.5 % (3.8-5.6)
[2023-10-09 08:49] LABS: CHOL/HDL RATIO 4.4 (3.9-5.7); THYROID STIMULATING HORMONE 0.91 uIU/mL (0.36-3.74)
[2023-10-09] MEDS: OMEGA-3/DHA/EPA/FISH OIL 1,000 MG CAPSULE PO SCH (09:15)
[2023-10-09] MEDS: EMTRICITABINE/TENOFOVIR 200-300 MG TABLET PO SCH (09:16)
[2023-10-09] MEDS: HYDROCORTISONE 2.5% TP SCH (09:17)
[2023-10-09 13:45] VITALS: BP 122/73; PULSE 83; RESP 18; TEMP 97.9; O2SAT 99
[2023-10-09] MEDS: LORazepam 2 MG TABLET PO PRN (13:47)
[2023-10-09 20:30] VITALS: BP 97/56; PULSE 86; RESP 16; TEMP 97.5; O2SAT 98
[2023-10-10 08:15] VITALS: BP 102/61; PULSE 91; RESP 19; TEMP 96.9; O2SAT 96
[2023-10-10 15:47] VITALS: RESP 19; O2SAT 96
[2023-10-10] MEDS: IBUPROFEN 400 MG TABLET PO PRN (15:47)
[2023-10-10 16:47] VITALS: RESP 18; O2SAT 96
[2023-10-10 20:45] VITALS: BP 128/90; PULSE 88; RESP 17; TEMP 97.6; O2SAT 99
[2023-10-11 16:28] VITALS: BP 107/86; PULSE 106; RESP 18; TEMP 97.6; O2SAT 99
[2023-10-11 23:55] VITALS: RESP 18
[2023-10-12] MEDS: ZOLPIDEM TARTRATE 10 MG TABLET PO PRN (00:53)
[2023-10-12 08:14] VITALS: BP 102/61; PULSE 86; RESP 17; TEMP 97.8; O2SAT 95
[2023-10-12 15:38] VITALS: RESP 17
[2023-10-12] MEDS: LORazepam 1 MG TABLET PO PRN (15:38)
[2023-10-12] MEDS: ACETAMINOPHEN 325 MG TABLET PO PRN (15:38)
[2023-10-12 16:38] VITALS: RESP 16
[2023-10-12] MEDS: LURASIDONE HCL 40 MG TABLET PO SCH (16:49)
[2023-10-12 20:56] VITALS: BP 123/74; PULSE 95; RESP 20; TEMP 97.4; O2SAT 99
[2023-10-13 08:20] VITALS: BP 140/89; PULSE 100; RESP 20; TEMP 97.9; O2SAT 99
[2023-10-13 16:51] VITALS: RESP 19; O2SAT 99
[2023-10-13 17:51] VITALS: RESP 18; O2SAT 99
[2023-10-13 20:49] VITALS: BP 107/70; PULSE 98; RESP 17; TEMP 97.3; O2SAT 99
[2023-10-14 08:37] VITALS: BP 117/76; PULSE 100; RESP 17; TEMP 97.7; O2SAT 99
[2023-10-14] MEDS ORDERED: LURA40TA2 PO (09:36)
[2023-10-14] MEDS ORDERED: LURA40TA4 PO (10:10)
== END 2023-10-14 12:50 | disposition home or self-care (01) | DRG 750 ==
LOC: B2S 20:33
PROVIDERS: ADMIT Psychiatry & Neurology Child & Adolescent Psychiatry; ATTEND Psychiatry & Neurology Child & Adolescent Psychiatry
DX: F25.1 Schizoaffective disorder, depressive type (principal); E66.9 Obesity, unspecified; G47.00 Insomnia, unspecified; Z20.822 Contact with and (suspected) exposure to COVID-19; Z88.8 Allergy status to other drugs, medicaments and biological substances; F17.200 Nicotine dependence, unspecified, uncomplicated; Z68.38 Body mass index [BMI] 38.0-38.9, adult; F32.A Depression, unspecified
CPT/HCPCS: 80053; 80061; 83036; 84439; 84443; 85025; Q9967

== ENCOUNTER 2023-12-06 17:50 | Emergency (ER) | payer MEDICAID, OTHER ==
[~2023-12-06] VITALS: Ht 160 cm; Wt 99.1 kg
[~2023-12-06 17:50] MED LIST changes: -BUPR-49 PO; -HYDR59LO7 TP; -LAMO25TA36 PO; +LURA40TA2 PO; +LURA40TA4 PO; -OMEG10005 PO; -TRAZ-252 PO
[2023-12-06] MEDS ORDERED: SUMA25TA15 PO ×2 (18:02→19:39)
[2023-12-06] MEDS ORDERED: LAMO25TA36 PO (18:02)
[2023-12-06] MEDS ORDERED: DIPH-1243 PO (18:02)
[2023-12-06] MEDS ORDERED: TRAZ-252 PO (18:02)
[2023-12-06] MEDS ORDERED: ARIP5TAB37 PO ×2 (18:02→19:39)
[2023-12-06] MEDS ORDERED: ACET-66 PO (18:02)
[2023-12-06] MEDS ORDERED: HYDR-4061 PO (18:02)
[2023-12-06 18:59] LABS: BASOPHILS % (AUTO) 1.2 % (0.0-2.0); HEMATOCRIT 41.2 % (36-46); HEMOGLOBIN 13.2 g/dL (12.0-16.0); LYMPHOCYTES # (AUTO) 1.7 K/uL (1.0-4.8); LYMPHOCYTES % (AUTO) 40.6 % (22.0-44.0); MEAN CORPUSCULAR HGB CONC 32.1 G/dL (31.0-37.0); MEAN CORPUSCULAR VOLUME 88 fL (80-100); MONOCYTES # (AUTO) 0.3 K/uL (0.1-1.0); MONOCYTES % (AUTO) 6.7 % (2.0-9.0); NEUTROPHILS % (AUTO) 48.5 % (40.0-70.0); PLATELET COUNT (AUTO) 256 K/uL (150-450); RED BLOOD CELL COUNT(AUTO) 4.71 MIL/uL (4.00-5.20); WHITE BLOOD COUNT (AUTO) 4.1 K/uL (4.5-11.0)
[2023-12-06] MEDS ORDERED: IBUP-1492 PO (19:39)
[2023-12-06] MEDS ORDERED: EMTR1TAB53 PO (19:39)
[2023-12-06] MEDS ORDERED: LURA40TA2 PO (19:39)
[2023-12-06] MEDS: HYDROCODONE/ACETAMINOPHEN 5-325 MG TABLET PO ONE (19:40)
[2023-12-06 19:50] LABS: ANION GAP 12 mmol/L (8-16); CALCIUM, TOTAL 8.5 mg/dL (8.8-10.5); CARBON DIOXIDE 27 mmol/L (22-29); CHLORIDE 105 mmol/L (98-107); CREATININE 1.03 mg/dL (0.60-1.30); GLOMERULAR FILTR. RATE CALC > 60 mL/min (>60); GLUCOSE,RANDOM 62 mg/dL (70-110); POTASSIUM 3.3 mmol/L (3.5-5.1); SODIUM SERUM 144 mmol/L (136-145); UREA NITROGEN, BLOOD 9 mg/dL (7-18)
[2023-12-06 20:46] VITALS: BP 135/89; PULSE 89; RESP 18; TEMP 97.3
== END 2023-12-06 20:56 | disposition home or self-care (01) ==
LOC: EMS 17:55
DX: G43.909 Migraine, unspecified, not intractable, without status migrainosus (principal); F20.9 Schizophrenia, unspecified; F17.210 Nicotine dependence, cigarettes, uncomplicated; F12.90 Cannabis use, unspecified, uncomplicated; F15.90 Other stimulant use, unspecified, uncomplicated; Z98.51 Tubal ligation status; Z88.1 Allergy status to other antibiotic agents; Z91.011 Allergy to milk products; Z91.018 Allergy to other foods; Z98.890 Other specified postprocedural states
CPT/HCPCS: 80048; 84703; 85025; 99283

== ENCOUNTER 2023-12-12 18:50 | Emergency (ER) | payer OTHER ==
[~2023-12-12] VITALS: Ht 162.6 cm; Wt 101.0 kg
[~2023-12-12 18:50] MED LIST changes: +ACET-66 PO; +ARIP5TAB37 PO; +DIPH-1243 PO; +HYDR-4061 PO; +IBUP-1492 PO; +LAMO25TA36 PO; -LURA40TA4 PO; -MELA5TAB40 PO; +SUMA25TA15 PO; +TRAZ-252 PO
[2023-12-12 19:04] VITALS: BP 115/67; PULSE 106; RESP 16; TEMP 98.3
[2023-12-12] MEDS: LURASIDONE HCL 40 MG TABLET PO ONE (23:42)
[2023-12-12] MEDS: SUMAtriptan SUCCINATE 25 MG TABLET PO ONE (23:42)
[2023-12-12] MEDS: ACETAMINOPHEN/CODEINE 300-30 MG TABLET PO ONE (23:42)
[2023-12-13] MEDS ORDERED: LURA40TA2 PO (00:41)
[2023-12-13] MEDS ORDERED: SUMA25TA15 PO (00:41)
[2023-12-13] MEDS ORDERED: ARIP5TAB37 PO (00:41)
== END 2023-12-13 01:22 | disposition home or self-care (01) ==
LOC: EMS 18:58
DX: F25.9 Schizoaffective disorder, unspecified (principal); G43.909 Migraine, unspecified, not intractable, without status migrainosus; F17.210 Nicotine dependence, cigarettes, uncomplicated; F12.90 Cannabis use, unspecified, uncomplicated; F15.90 Other stimulant use, unspecified, uncomplicated; Z98.51 Tubal ligation status; Z88.1 Allergy status to other antibiotic agents; Z91.011 Allergy to milk products; Z91.018 Allergy to other foods; Z98.890 Other specified postprocedural states
CPT/HCPCS: 99284; Z7502; Z7610

== ENCOUNTER 2023-12-13 17:05 | Inpatient (IN) | payer MEDICAID ==
[~2023-12-13] VITALS: Ht 160 cm; Wt 100.2 kg
[2023-12-13 18:05] LABS: GLUCOMETER DEV NAME(LOC) POC.BV; POC SARS-COV2 AG, FIA NEGATIVE (NEGATIVE)
[2023-12-13] MEDS ORDERED: HALOPERIDOL 5 MG TABLET PO PRN (18:45)
[2023-12-13 19:00] VITALS: BP 119/90; PULSE 90; RESP 18; TEMP 97.5; O2SAT 100
[2023-12-13 22:46] VITALS: BP 119/90; PULSE 90; TEMP 97.5
[2023-12-14 08:17] LABS: BASOPHILS % (AUTO) 0.6 % (0.0-2.0); EOSINOPHILS % (AUTO) 5.3 % (1.0-6.0); HEMATOCRIT 34.6 % (36-46); HEMOGLOBIN 11.4 g/dL (12.0-16.0); LYMPHOCYTES # (AUTO) 1.1 K/uL (1.0-4.8); LYMPHOCYTES % (AUTO) 34.8 % (22.0-44.0); MEAN CORPUSCULAR HEMOGLOBIN 28.2 pg (26.0-34.0); MEAN CORPUSCULAR VOLUME 86 fL (80-100); MONOCYTES # (AUTO) 0.3 K/uL (0.1-1.0); MONOCYTES % (AUTO) 11.1 % (2.0-9.0); NEUTROPHILS # (AUTO) 1.5 K/uL (1.8-7.7); NEUTROPHILS % (AUTO) 48.2 % (40.0-70.0); PLATELET COUNT (AUTO) 216 K/uL (150-450); RED BLOOD CELL COUNT(AUTO) 4.03 MIL/uL (4.00-5.20); RED CELL DISTRIBUTION WIDTH 14.9 % (11.5-14.5); WHITE BLOOD COUNT (AUTO) 3.1 K/uL (4.5-11.0)
[2023-12-14 08:38] LABS: ALANINE AMINOTRANSFERASE 14 U/L (12-78); ALBUMIN 2.6 g/dL (3.4-5.0); ALKALINE PHOSPHATASE 55 U/L (46-116); ANION GAP 8 mmol/L (8-16); ASPARTATE AMINOTRANSFERASE 12 U/L (15-37); CALCIUM, TOTAL 7.9 mg/dL (8.8-10.5); CARBON DIOXIDE 27 mmol/L (22-29); CHLORIDE 103 mmol/L (98-107); CHOL/HDL RATIO 4.1 (3.9-5.7); CHOLESTEROL 146 mg/dL (131-200); CREATININE 0.84 mg/dL (0.60-1.30); FREE T4 (FREE THYROXINE) 0.84 ng/dL (0.76-1.46); GLOMERULAR FILTR. RATE CALC > 60 mL/min (>60); GLUCOSE,RANDOM 98 mg/dL (70-110); HDL CHOLESTEROL 36 mg/dL (40-60); LDL CHOL (CALC.) 87 mg/dL (0-130); POTASSIUM 3.9 mmol/L (3.5-5.1); SODIUM SERUM 138 mmol/L (136-145); T4 (THYROXINE) 7.7 mcg/dL (4.7-13.3); THYROID STIMULATING HORMONE 0.59 uIU/mL (0.36-3.74); TOTAL PROTEIN, SERUM 5.9 g/dL (6.4-8.2); TRIGLYCERIDES 113 mg/dL (15-150); UREA NITROGEN, BLOOD 12 mg/dL (7-18)
[2023-12-14 08:39] LABS: BILIRUBIN,TOTAL 0.1 mg/dL (0.1-1.0)
[2023-12-14 08:50] VITALS: BP 140/88; PULSE 80; RESP 17; TEMP 98; O2SAT 100
[2023-12-14] MEDS ORDERED: OMEPRAZOLE 20 MG CAPSULE PO PRN (12:00)
[2023-12-14] MEDS ORDERED: MAG HYDROX/ALUMINUM HYD/SIMETH ES 30 ML SUSPENSION UDCUP PO PRN (12:00)
[2023-12-14] MEDS ORDERED: PETROLATUM,WHITE 28 GM JELLY TP PRN (12:00)
[2023-12-14] MEDS ORDERED: ONDANSETRON HCL 4 MG TABLET PO PRN (12:00)
[2023-12-14] MEDS ORDERED: BACITRACIN 28 GM OINTMENT TP PRN (12:00)
[2023-12-14] MEDS ORDERED: DOCUSATE SODIUM 100 MG CAPSULE PO PRN (12:00)
[2023-12-14] MEDS ORDERED: BENZOCAINE/MENTHOL LOZENGE PO PRN (12:00)
[2023-12-14] MEDS ORDERED: CloNIDine HCL 0.1 MG TABLET PO PRN (12:00)
[2023-12-14] MEDS ORDERED: ALBUTEROL SULFATE HFA 90 MCG/PUFF 8 GM INHALER IH PRN (12:00)
[2023-12-14] MEDS ORDERED: MAGNESIUM HYDROXIDE SUSPENSION 30 ML UDCUP PO PRN (12:00)
[2023-12-14] MEDS ORDERED: LOPERAMIDE HCL 2 MG CAPSULE PO PRN (12:00)
[2023-12-14] MEDS ORDERED: DiphenhydrAMINE HCL 25 MG CAPSULE PO PRN (12:00)
[2023-12-14] MEDS ORDERED: SUMAtriptan SUCCINATE 25 MG TABLET PO PRN (12:00)
[2023-12-14] MEDS ORDERED: ACETAMINOPHEN 325 MG TABLET PO PRN (12:00)
[2023-12-14] MEDS: EMTRICITABINE/TENOFOVIR 200-300 MG TABLET PO SCH (15:39)
[2023-12-14] MEDS: OLANZapine 10 MG TABLET PO SCH (20:35)
[2023-12-14 21:00] VITALS: BP 115/70; PULSE 77; RESP 17; TEMP 97.3; O2SAT 97
[2023-12-15 08:24] VITALS: BP 140/88; PULSE 85; RESP 18; TEMP 97.5; O2SAT 96
[2023-12-15 20:53] VITALS: BP 103/68; PULSE 89; RESP 16; TEMP 98.8; O2SAT 97
[2023-12-15] MEDS: ZOLPIDEM TARTRATE 10 MG TABLET PO PRN (21:32)
[2023-12-15] MEDS: LORazepam 2 MG TABLET PO PRN (21:33)
[2023-12-16 08:45] VITALS: BP 123/75; PULSE 80; RESP 16; TEMP 98.3; O2SAT 100
[2023-12-16 20:04] VITALS: BP 106/67; PULSE 100; RESP 17; TEMP 98.8; O2SAT 97
[2023-12-17 09:04] VITALS: BP 117/73; PULSE 85; RESP 18; TEMP 98.7; O2SAT 98
[2023-12-17 14:14] VITALS: RESP 18; O2SAT 98
[2023-12-17] MEDS: IBUPROFEN 600 MG TABLET PO PRN (14:14)
[2023-12-17 15:14] VITALS: RESP 17; O2SAT 98
[2023-12-17 20:32] VITALS: BP 107/71; PULSE 98; RESP 18; TEMP 98.6; O2SAT 97
[2023-12-18 08:52] VITALS: BP 103/64; PULSE 91; RESP 17; TEMP 97.8; O2SAT 98
[2023-12-18] MEDS ORDERED: EMTR1TAB53 PO (12:05)
[2023-12-18] MEDS ORDERED: OLAN10TA74 PO (12:07)
== END 2023-12-18 13:00 | disposition home or self-care (01) | DRG 750 ==
LOC: B2S 17:30
PROVIDERS: ADMIT Psychiatry & Neurology Psychiatry; ATTEND Psychiatry & Neurology Psychiatry
DX: F25.9 Schizoaffective disorder, unspecified (principal); R45.851 Suicidal ideations; E66.9 Obesity, unspecified; F41.9 Anxiety disorder, unspecified; F12.90 Cannabis use, unspecified, uncomplicated; Z20.822 Contact with and (suspected) exposure to COVID-19; G47.00 Insomnia, unspecified; G43.909 Migraine, unspecified, not intractable, without status migrainosus; K59.00 Constipation, unspecified; Z88.1 Allergy status to other antibiotic agents; Z91.011 Allergy to milk products; Z91.018 Allergy to other foods; Z68.39 Body mass index [BMI] 39.0-39.9, adult; Z79.899 Other long term (current) drug therapy
CPT/HCPCS: 80053; 80061; 84436; 84439; 84443; 85025; 86592

== ENCOUNTER 2024-03-14 15:14 | Inpatient (IN) | payer MEDICAID ==
[~2024-03-14] VITALS: Ht 160 cm; Wt 101.0 kg
[~2024-03-14 15:14] MED LIST changes: -ACET-66 PO; -ARIP5TAB37 PO; -DIPH-1243 PO; -HYDR-4061 PO; -IBUP-1492 PO; -LAMO25TA36 PO; -LURA40TA2 PO; +OLAN10TA74 PO; -SUMA25TA15 PO; -TRAZ-252 PO
[2024-03-14] MEDS ORDERED: HALOPERIDOL 5 MG TABLET PO PRN (19:15)
[2024-03-14] MEDS ORDERED: ZOLPIDEM TARTRATE 10 MG TABLET PO PRN (19:15)
[2024-03-14] MEDS ORDERED: LORazepam 2 MG TABLET PO PRN (19:15)
[2024-03-14 20:24] VITALS: BP 132/85; PULSE 101; RESP 20; TEMP 97
[2024-03-14] MEDS ORDERED: BUPR-514 PO (20:45)
[2024-03-14] MEDS ORDERED: ARIP10TA38 PO (20:45)
[2024-03-14] MEDS ORDERED: BACITRACIN 28 GM OINTMENT TP PRN (21:00)
[2024-03-14] MEDS ORDERED: MAGNESIUM HYDROXIDE SUSPENSION 30 ML UDCUP PO PRN (21:00)
[2024-03-14] MEDS ORDERED: BENZOCAINE/MENTHOL LOZENGE PO PRN (21:00)
[2024-03-14] MEDS ORDERED: CloNIDine HCL 0.1 MG TABLET PO PRN (21:00)
[2024-03-14] MEDS ORDERED: DOCUSATE SODIUM 100 MG CAPSULE PO PRN (21:00)
[2024-03-14] MEDS ORDERED: ALBUTEROL SULFATE HFA 90 MCG/PUFF 8 GM INHALER IH PRN (21:00)
[2024-03-14] MEDS ORDERED: ACETAMINOPHEN 325 MG TABLET PO PRN (21:00)
[2024-03-14] MEDS ORDERED: ONDANSETRON HCL 4 MG TABLET PO PRN (21:00)
[2024-03-14] MEDS ORDERED: PETROLATUM,WHITE 28 GM JELLY TP PRN (21:00)
[2024-03-14] MEDS ORDERED: LOPERAMIDE HCL 2 MG CAPSULE PO PRN (21:00)
[2024-03-14] MEDS ORDERED: OMEPRAZOLE 20 MG CAPSULE PO PRN (21:00)
[2024-03-14 21:11] LABS: GLUCOMETER DEV NAME(LOC) POC.BV; POC SARS-COV2 AG, FIA NEGATIVE (NEGATIVE)
[2024-03-14 22:14] VITALS: BP 128/88; RESP 20; TEMP 97.8; O2SAT 99
[2024-03-15 07:28] LABS: BASOPHILS % (AUTO) 0.5 % (0.0-2.0); EOSINOPHILS % (AUTO) 4.6 % (1.0-6.0); HEMATOCRIT 35.9 % (36-46); HEMOGLOBIN 11.5 g/dL (12.0-16.0); LYMPHOCYTES # (AUTO) 1.8 K/uL (1.0-4.8); LYMPHOCYTES % (AUTO) 37.7 % (22.0-44.0); MEAN CORPUSCULAR VOLUME 87 fL (80-100); MONOCYTES # (AUTO) 0.4 K/uL (0.1-1.0); MONOCYTES % (AUTO) 8.6 % (2.0-9.0); NEUTROPHILS # (AUTO) 2.4 K/uL (1.8-7.7); NEUTROPHILS % (AUTO) 48.6 % (40.0-70.0); PLATELET COUNT (AUTO) 245 K/uL (150-450); RED BLOOD CELL COUNT(AUTO) 4.11 MIL/uL (4.00-5.20); RED CELL DISTRIBUTION WIDTH 15.4 % (11.5-14.5); WHITE BLOOD COUNT (AUTO) 4.8 K/uL (4.5-11.0)
[2024-03-15 07:56] LABS: ALANINE AMINOTRANSFERASE 19 U/L (12-78); ALBUMIN 2.5 g/dL (3.4-5.0); ALKALINE PHOSPHATASE 54 U/L (46-116); ANION GAP 2 mmol/L (8-16); ASPARTATE AMINOTRANSFERASE 19 U/L (15-37); BILIRUBIN,TOTAL 0.1 mg/dL (0.1-1.0); CALCIUM, TOTAL 8.1 mg/dL (8.8-10.5); CARBON DIOXIDE 30 mmol/L (22-29); CHLORIDE 106 mmol/L (98-107); CHOL/HDL RATIO 3.5 (3.9-5.7); CHOLESTEROL 151 mg/dL (131-200); CREATININE 0.79 mg/dL (0.60-1.30); FREE T4 (FREE THYROXINE) 0.78 ng/dL (0.76-1.46); GLOMERULAR FILTR. RATE CALC > 60 mL/min (>60); GLUCOSE,RANDOM 88 mg/dL (70-110); HCG,QUANTITATIVE < 1 mIU/mL (0-6); HDL CHOLESTEROL 43 mg/dL (40-60); LDL CHOL (CALC.) 87 mg/dL (0-130); POTASSIUM 3.9 mmol/L (3.5-5.1); SODIUM SERUM 138 mmol/L (136-145); THYROID STIMULATING HORMONE 0.82 uIU/mL (0.36-3.74); TOTAL PROTEIN, SERUM 5.8 g/dL (6.4-8.2); TRIGLYCERIDES 104 mg/dL (15-150); UREA NITROGEN, BLOOD 11 mg/dL (7-18)
[2024-03-15 08:43] VITALS: BP 125/82; PULSE 81; RESP 17; TEMP 97.5; O2SAT 100
[2024-03-15] MEDS: EMTRICITABINE/TENOFOVIR 200-300 MG TABLET PO SCH (08:48)
[2024-03-15 08:52] LABS: APPEARANCE,URINE HAZY (CLEAR); BILIRUBIN,URINE NEGATIVE (NEGATIVE); COLOR,URINE YELLOW (YELLOW); GLUCOSE, URINE (UA) NEGATIVE (NEGATIVE); KETONES,URINE NEGATIVE (NEGATIVE); LEUKOCYTE ESTERASE ,URINE NEGATIVE (NEGATIVE); NITRATE,URINE NEGATIVE (NEGATIVE); OCCULT BLOOD,URINE TRACE (NEGATIVE); PH,URINE 6.5 (5.0-8.0); PROTEIN,URINE TRACE mg/dL (NEGATIVE); SPECIFIC GRAVITIY, URINE 1.029 (1.003-1.030)
[2024-03-15 09:10] LABS: BACTERIA,URINE None Seen /HPF (None Seen); CALCIUM OXALATE CRYSTALS,UR Many /LPF (None Seen); RBC,URINE 0-2 /HPF (0-2); SQUAMOUS EPITHELIAL CELL,UR Many /LPF (None Seen); WBC,URINE None Seen /HPF (0-5)
[2024-03-15 20:19] VITALS: BP 118/75; PULSE 65; RESP 16; TEMP 98; O2SAT 100
[2024-03-16] MEDS: RisperiDONE 3 MG TABLET PO SCH (08:58)
[2024-03-16 09:04] VITALS: BP 124/81; PULSE 99; RESP 17; TEMP 97.4; O2SAT 95
[2024-03-16] MEDS: IBUPROFEN 600 MG TABLET PO PRN (11:57)
[2024-03-16 20:19] VITALS: BP 125/86; PULSE 70; RESP 17; TEMP 98; O2SAT 99
[2024-03-17 09:36] VITALS: BP 139/92; PULSE 87; RESP 17; TEMP 97.3; O2SAT 97
[2024-03-17] MEDS: NICOTINE POLACRILEX 2 MG LOZENGE PO PRN (14:00)
[2024-03-17] MEDS: MAG HYDROX/ALUMINUM HYD/SIMETH ES 30 ML SUSPENSION UDCUP PO PRN (16:09)
[2024-03-18 00:26] VITALS: RESP 16
[2024-03-18 08:30] VITALS: BP 122/78; PULSE 93; RESP 17; TEMP 97; O2SAT 98
[2024-03-18] MEDS ORDERED: RISP3TAB77 PO (11:08)
== END 2024-03-18 13:52 | disposition home or self-care (01) | DRG 750 ==
LOC: B3A 19:21
PROVIDERS: ADMIT Psychiatry & Neurology Psychiatry; ATTEND Psychiatry & Neurology Psychiatry
DX: F20.9 Schizophrenia, unspecified (principal); Z91.148 Patient's other noncompliance with medication regimen for other reason; E66.9 Obesity, unspecified; G47.00 Insomnia, unspecified; F41.9 Anxiety disorder, unspecified; G43.909 Migraine, unspecified, not intractable, without status migrainosus; Z20.822 Contact with and (suspected) exposure to COVID-19; K59.00 Constipation, unspecified; F12.10 Cannabis abuse, uncomplicated; Z20.6 Contact with and (suspected) exposure to human immunodeficiency virus [HIV]; Z68.39 Body mass index [BMI] 39.0-39.9, adult; Z91.018 Allergy to other foods; Z59.00 Homelessness unspecified; Z91.011 Allergy to milk products; Z88.8 Allergy status to other drugs, medicaments and biological substances
CPT/HCPCS: 80053; 80061; 81001; 84439; 84443; 84702; 85025

== ENCOUNTER 2024-03-31 17:59 | Inpatient (IN) | payer MEDICAID ==
[~2024-03-31] VITALS: Ht 157.5 cm; Wt 94.8 kg
[~2024-03-31 17:59] MED LIST changes: -OLAN10TA74 PO; +RISP3TAB77 PO
[2024-03-31] MEDS ORDERED: TRAZ-252 PO (18:07)
[2024-03-31] MEDS ORDERED: OLAN10TA74 PO (18:07)
[2024-03-31] MEDS ORDERED: ARIP10TA38 PO (18:07)
[2024-03-31 20:21] LABS: BASOPHILS % (AUTO) 0.5 % (0.0-2.0); EOSINOPHILS % (AUTO) 5.1 % (1.0-6.0); HEMATOCRIT 35.2 % (36-46); HEMOGLOBIN 10.9 g/dL (12.0-16.0); LYMPHOCYTES # (AUTO) 2.6 K/uL (1.0-4.8); LYMPHOCYTES % (AUTO) 46.4 % (22.0-44.0); MEAN CORPUSCULAR HEMOGLOBIN 27.3 pg (26.0-34.0); MEAN CORPUSCULAR HGB CONC 30.9 G/dL (31.0-37.0); MEAN CORPUSCULAR VOLUME 88 fL (80-100); MONOCYTES # (AUTO) 0.4 K/uL (0.1-1.0); NEUTROPHILS # (AUTO) 2.3 K/uL (1.8-7.7); PLATELET COUNT (AUTO) 234 K/uL (150-450); RED BLOOD CELL COUNT(AUTO) 3.98 MIL/uL (4.00-5.20); RED CELL DISTRIBUTION WIDTH 15.4 % (11.5-14.5); WHITE BLOOD COUNT (AUTO) 5.5 K/uL (4.5-11.0)
[2024-03-31 20:22] LABS: ANION GAP 5 mmol/L (8-16); CALCIUM, TOTAL 7.9 mg/dL (8.8-10.5); CARBON DIOXIDE 28 mmol/L (22-29); CHLORIDE 104 mmol/L (98-107); CREATININE 0.85 mg/dL (0.60-1.30); GLOMERULAR FILTR. RATE CALC > 60 mL/min (>60); GLUCOSE,RANDOM 82 mg/dL (70-110); POTASSIUM 3.6 mmol/L (3.5-5.1); SODIUM SERUM 137 mmol/L (136-145); UREA NITROGEN, BLOOD 12 mg/dL (7-18)
[2024-03-31 20:23] LABS: ALCOHOL, BLOOD (SERUM) < 3 mg/dL (0-10)
[2024-03-31 20:30] LABS: COVID AG,FIA SOURCE NPH
[2024-03-31 20:37] LABS: HCG,QUANTITATIVE < 1 mIU/mL (0-6); THYROID STIMULATING HORMONE 1.32 uIU/mL (0.36-3.74)
[2024-03-31 20:51] LABS: SARS-COV2 (COVID) ANTIGEN,FIA Negative (Negative)
[2024-04-01] MEDS ORDERED: ZOLPIDEM TARTRATE 10 MG TABLET PO PRN
[2024-04-01] MEDS ORDERED: HALOPERIDOL 5 MG TABLET PO PRN
[2024-04-01 01:12] LABS: APPEARANCE,URINE CLEAR (CLEAR); BILIRUBIN,URINE NEGATIVE (NEGATIVE); COLOR,URINE YELLOW (YELLOW); GLUCOSE, URINE (UA) NEGATIVE (NEGATIVE); KETONES,URINE NEGATIVE (NEGATIVE); LEUKOCYTE ESTERASE ,URINE SMALL (NEGATIVE); NITRATE,URINE NEGATIVE (NEGATIVE); OCCULT BLOOD,URINE LARGE (NEGATIVE); PROTEIN,URINE 30-70 mg/dL (NEGATIVE); SPECIFIC GRAVITIY, URINE 1.039 (1.003-1.030)
[2024-04-01 01:18] LABS: ALCOHOL, URINE DRUG SCREEN NEGATIVE (NEGATIVE); AMPHET/METH SCREEN,URINE POSITIVE (NEGATIVE); BARBITURATE SCREEN, URINE NEGATIVE (NEGATIVE); BENZODIAZEPINES SCREEN,URINE NEGATIVE (NEGATIVE); CANNABINOID SCREEN,URINE POSITIVE (NEGATIVE); COCAINE SCREEN,URINE NEGATIVE (NEGATIVE); METHADONE SCREEN, URINE NEGATIVE (NEGATIVE); OPIATE SCREEN,URINE NEGATIVE (NEGATIVE); PHENCYCLIDINE SCREEN,URINE POSITIVE (NEGATIVE)
[2024-04-01 01:23] LABS: BACTERIA,URINE None Seen /HPF (None Seen); SQUAMOUS EPITHELIAL CELL,UR Moderate /LPF (None Seen)
[2024-04-01 04:43] VITALS: BP 128/89; PULSE 94; RESP 18; TEMP 97.7; O2SAT 98
[2024-04-01 08:40] VITALS: BP 134/81; PULSE 100; RESP 16; TEMP 97.6; O2SAT 99
[2024-04-01] MEDS ORDERED: PETROLATUM,WHITE 28 GM JELLY TP PRN (09:00)
[2024-04-01] MEDS ORDERED: ALBUTEROL SULFATE HFA 90 MCG/PUFF 8 GM INHALER IH PRN (09:00)
[2024-04-01] MEDS ORDERED: CloNIDine HCL 0.1 MG TABLET PO PRN (09:00)
[2024-04-01] MEDS ORDERED: ONDANSETRON HCL 4 MG TABLET PO PRN (09:00)
[2024-04-01] MEDS ORDERED: MAG HYDROX/ALUMINUM HYD/SIMETH ES 30 ML SUSPENSION UDCUP PO PRN (09:00)
[2024-04-01] MEDS ORDERED: MAGNESIUM HYDROXIDE SUSPENSION 30 ML UDCUP PO PRN (09:00)
[2024-04-01] MEDS ORDERED: LOPERAMIDE HCL 2 MG CAPSULE PO PRN (09:00)
[2024-04-01] MEDS ORDERED: OMEPRAZOLE 20 MG CAPSULE PO PRN (09:00)
[2024-04-01] MEDS ORDERED: BACITRACIN 28 GM OINTMENT TP PRN (09:00)
[2024-04-01] MEDS ORDERED: DOCUSATE SODIUM 100 MG CAPSULE PO PRN (09:00)
[2024-04-01] MEDS ORDERED: BENZOCAINE/MENTHOL LOZENGE PO PRN (09:00)
[2024-04-01] MEDS: SULFAMETHOX/TRIMETH DS 800-160 MG/TABLET PO SCH (12:58)
[2024-04-01] MEDS: EMTRICITABINE/TENOFOVIR 200-300 MG TABLET PO SCH (12:58)
[2024-04-01 17:53] VITALS: BP 127/84; PULSE 60; RESP 16; TEMP 97.4; O2SAT 99
[2024-04-01] MEDS: IBUPROFEN 600 MG TABLET PO PRN (17:53)
[2024-04-01 18:53] VITALS: RESP 17; O2SAT 98
[2024-04-01 20:11] VITALS: BP 102/66; PULSE 88; RESP 17; TEMP 97.9; O2SAT 98
[2024-04-02] MEDS: ARIPiprazole 15 MG TABLET PO SCH (08:12)
[2024-04-02 08:29] VITALS: BP 114/75; PULSE 66; RESP 17; TEMP 97.7; O2SAT 99
[2024-04-02 14:12] VITALS: RESP 17
[2024-04-02 15:12] VITALS: RESP 16
[2024-04-02 20:20] VITALS: BP 111/69; PULSE 73; RESP 17; TEMP 97.3; O2SAT 99
[2024-04-03 08:13] VITALS: BP 116/79; PULSE 79; RESP 16; TEMP 98; O2SAT 99
[2024-04-03 20:00] VITALS: BP 99/64; PULSE 86; RESP 16; TEMP 97.8; O2SAT 98
[2024-04-04 08:08] VITALS: BP 116/72; PULSE 86; RESP 21; TEMP 98; O2SAT 100
[2024-04-04] MEDS: ACETAMINOPHEN 325 MG TABLET PO PRN (10:49)
[2024-04-04] MEDS: LORazepam 2 MG TABLET PO PRN (14:27)
[2024-04-04 20:00] VITALS: BP 106/74; PULSE 86; RESP 17; TEMP 97.1; O2SAT 97
[2024-04-05 08:12] VITALS: RESP 16
[2024-04-05 20:00] VITALS: BP 89/62; PULSE 93; RESP 16; TEMP 97.8; O2SAT 97
[2024-04-06 09:19] VITALS: BP 100/60; PULSE 99; RESP 17; TEMP 97.7; O2SAT 97
[2024-04-06 20:00] VITALS: BP 108/69; PULSE 90; RESP 16; TEMP 98.2; O2SAT 100
[2024-04-07 08:08] VITALS: BP 163/80; PULSE 97; RESP 18; TEMP 98; O2SAT 99
[2024-04-07 20:07] VITALS: BP 98/62; PULSE 100; RESP 18; TEMP 97.7
[2024-04-08 08:17] VITALS: PULSE 98; RESP 16; TEMP 97.8; O2SAT 100
[2024-04-08] MEDS ORDERED: NICOTINE POLACRILEX 2 MG LOZENGE PO PRN (09:00)
[2024-04-08] MEDS ORDERED: ARIP15TA27 PO (11:06)
== END 2024-04-08 12:00 | disposition home or self-care (01) | DRG 750 ==
LOC: EMS 17:59 → B3A 04-01 01:32
PROVIDERS: ADMIT Psychiatry & Neurology Psychiatry; ATTEND Psychiatry & Neurology Psychiatry
DX: F20.9 Schizophrenia, unspecified (principal); R45.851 Suicidal ideations; E66.9 Obesity, unspecified; F41.9 Anxiety disorder, unspecified; G43.909 Migraine, unspecified, not intractable, without status migrainosus; G47.00 Insomnia, unspecified; K59.00 Constipation, unspecified; Z20.822 Contact with and (suspected) exposure to COVID-19; Z20.6 Contact with and (suspected) exposure to human immunodeficiency virus [HIV]; F12.10 Cannabis abuse, uncomplicated; F15.10 Other stimulant abuse, uncomplicated; Z59.00 Homelessness unspecified; Z87.891 Personal history of nicotine dependence; Z88.1 Allergy status to other antibiotic agents; Z91.011 Allergy to milk products; Z91.018 Allergy to other foods; Z71.51 Drug abuse counseling and surveillance of drug abuser; Z68.38 Body mass index [BMI] 38.0-38.9, adult
CPT/HCPCS: 80048; 80307; 81001; 84443; 84702; 85025; 87081; 87491; 87591; 99285; G0480

== ENCOUNTER 2024-04-12 12:30 | Emergency (ER) | payer MEDICAID, OTHER ==
[~2024-04-12] VITALS: Ht 160 cm; Wt 79.5 kg
[~2024-04-12 12:30] MED LIST changes: +ARIP15TA27 PO; -RISP3TAB77 PO
[2024-04-12 12:44] VITALS: TEMP 97.9
[2024-04-12 13:01] LABS: APPEARANCE,URINE CLEAR (CLEAR); BILIRUBIN,URINE NEGATIVE (NEGATIVE); COLOR,URINE YELLOW (YELLOW); GLUCOSE, URINE (UA) NEGATIVE (NEGATIVE); KETONES,URINE NEGATIVE (NEGATIVE); LEUKOCYTE ESTERASE ,URINE LARGE (NEGATIVE); NITRATE,URINE NEGATIVE (NEGATIVE); OCCULT BLOOD,URINE SMALL (NEGATIVE); PH,URINE 5.5 (5.0-8.0); PROTEIN,URINE TRACE mg/dL (NEGATIVE); SPECIFIC GRAVITIY, URINE 1.025 (1.003-1.030); UROBILINOGEN,URINE <=1.0 mg/dL (<=1.0)
[2024-04-12 13:13] LABS: BACTERIA,URINE Few /HPF (None Seen); RBC,URINE 0-2 /HPF (0-2)
[2024-04-12 13:14] LABS: SQUAMOUS EPITHELIAL CELL,UR Few /LPF (None Seen)
[2024-04-12 13:22] LABS: BASOPHILS % (AUTO) 0.4 % (0.0-2.0); HEMATOCRIT 36.4 % (36-46); HEMOGLOBIN 11.6 g/dL (12.0-16.0); LYMPHOCYTES # (AUTO) 1.7 K/uL (1.0-4.8); LYMPHOCYTES % (AUTO) 34.6 % (22.0-44.0); MEAN CORPUSCULAR HEMOGLOBIN 27.5 pg (26.0-34.0); MEAN CORPUSCULAR HGB CONC 31.9 G/dL (31.0-37.0); MEAN CORPUSCULAR VOLUME 86 fL (80-100); MONOCYTES # (AUTO) 0.5 K/uL (0.1-1.0); MONOCYTES % (AUTO) 10.8 % (2.0-9.0); NEUTROPHILS # (AUTO) 2.6 K/uL (1.8-7.7); NEUTROPHILS % (AUTO) 52.2 % (40.0-70.0); PLATELET COUNT (AUTO) 257 K/uL (150-450); RED BLOOD CELL COUNT(AUTO) 4.22 MIL/uL (4.00-5.20); RED CELL DISTRIBUTION WIDTH 15.2 % (11.5-14.5); WHITE BLOOD COUNT (AUTO) 4.9 K/uL (4.5-11.0)
[2024-04-12 13:32] LABS: ANION GAP 11 mmol/L (8-16); CALCIUM, TOTAL 8.8 mg/dL (8.8-10.5); CARBON DIOXIDE 26 mmol/L (22-29); CHLORIDE 98 mmol/L (98-107); CREATININE 1.09 mg/dL (0.60-1.30); GLOMERULAR FILTR. RATE CALC > 60 mL/min (>60); GLUCOSE,RANDOM 92 mg/dL (70-110); POTASSIUM 3.5 mmol/L (3.5-5.1); SODIUM SERUM 135 mmol/L (136-145); UREA NITROGEN, BLOOD 10 mg/dL (7-18)
[2024-04-12 13:38] LABS: ALANINE AMINOTRANSFERASE 18 U/L (12-78); ALBUMIN 3.2 g/dL (3.4-5.0); ALKALINE PHOSPHATASE 79 U/L (46-116); ASPARTATE AMINOTRANSFERASE 15 U/L (15-37); BILIRUBIN,TOTAL 0.2 mg/dL (0.1-1.0); LIPASE 23 U/L (16-77); TOTAL PROTEIN, SERUM 7.4 g/dL (6.4-8.2)
[2024-04-12 14:24] LABS: ALCOHOL, BLOOD (SERUM) < 3 mg/dL (0-10)
[2024-04-12 17:15] LABS: PH,URINE DRUG SCREEN 5.5 (5.0-8.0)
[2024-04-12 17:30] LABS: ALCOHOL, URINE DRUG SCREEN NEGATIVE (NEGATIVE); AMPHET/METH SCREEN,URINE NEGATIVE (NEGATIVE); BARBITURATE SCREEN, URINE NEGATIVE (NEGATIVE); BENZODIAZEPINES SCREEN,URINE NEGATIVE (NEGATIVE); CANNABINOID SCREEN,URINE POSITIVE (NEGATIVE); COCAINE SCREEN,URINE NEGATIVE (NEGATIVE); METHADONE SCREEN, URINE NEGATIVE (NEGATIVE); OPIATE SCREEN,URINE NEGATIVE (NEGATIVE); PHENCYCLIDINE SCREEN,URINE POSITIVE (NEGATIVE)
[2024-04-12] MEDS ORDERED: ARIP10TA56 PO ×2 (18:23→19:10)
[2024-04-12] MEDS: KETOROLAC TROMETHAMINE 30 MG/ML VIAL IVP ONE (18:31)
[2024-04-12] MEDS: CefTRIAXone 1 GM/DEXTROSE 50 ML IV ONE (18:31)
[2024-04-12 18:49] VITALS: BP 135/81; PULSE 88; RESP 19
[2024-04-12] MEDS ORDERED: CEPH-558 PO (19:10)
[2024-04-12] MEDS ORDERED: EMTR1TAB53 PO (19:10)
== END 2024-04-12 19:42 | disposition home or self-care (01) ==
LOC: EMS 12:30
DX: N39.0 Urinary tract infection, site not specified (principal); G43.909 Migraine, unspecified, not intractable, without status migrainosus; F20.9 Schizophrenia, unspecified; F17.210 Nicotine dependence, cigarettes, uncomplicated; F12.90 Cannabis use, unspecified, uncomplicated; F15.90 Other stimulant use, unspecified, uncomplicated; Z98.51 Tubal ligation status; Z98.890 Other specified postprocedural states; Z88.1 Allergy status to other antibiotic agents; Z91.011 Allergy to milk products; Z91.018 Allergy to other foods
CPT/HCPCS: 99285; 96365; 96375; 80048; 80076; 83690; 84703; 85025; 36415; 87086; 87186; 93005; 80307; 81001; G0480; J0696; J1885

== ENCOUNTER 2024-04-27 20:35 | Emergency (ER) | payer OTHER ==
[~2024-04-27 20:35] MED LIST changes: +ARIP10TA56 PO; -ARIP15TA27 PO; +CEPH-558 PO
[2024-04-28] MEDS ORDERED: IBUP-1506 PO (13:43)
[2024-04-28] MEDS ORDERED: ARIP15TA27 PO (13:43)
[2024-04-28] MEDS ORDERED: AMOX-457 PO (13:44)
== END 2024-04-27 22:00 | disposition left against medical advice (07) ==
LOC: EMS 20:39
DX: R07.81 Pleurodynia (principal); Z53.21 Procedure and treatment not carried out due to patient leaving prior to being seen by health care provider

== ENCOUNTER 2024-04-28 11:21 | Emergency (ER) | payer OTHER ==
[~2024-04-28] VITALS: Ht 157.5 cm; Wt 54.5 kg
[2024-04-28 11:28] VITALS: TEMP 99.2
[2024-04-28 11:34] LABS: COVID AG,FIA SOURCE NASAL SWAB
[2024-04-28 11:54] LABS: BASOPHILS % (AUTO) 0.8 % (0.0-2.0); EOSINOPHILS % (AUTO) 1.7 % (1.0-6.0); HEMATOCRIT 39.2 % (36-46); HEMOGLOBIN 12.5 g/dL (12.0-16.0); LYMPHOCYTES # (AUTO) 1.6 K/uL (1.0-4.8); LYMPHOCYTES % (AUTO) 23.8 % (22.0-44.0); MEAN CORPUSCULAR HEMOGLOBIN 27.4 pg (26.0-34.0); MEAN CORPUSCULAR HGB CONC 31.9 G/dL (31.0-37.0); MEAN CORPUSCULAR VOLUME 86 fL (80-100); MONOCYTES # (AUTO) 0.6 K/uL (0.1-1.0); MONOCYTES % (AUTO) 8.2 % (2.0-9.0); NEUTROPHILS # (AUTO) 4.5 K/uL (1.8-7.7); NEUTROPHILS % (AUTO) 65.5 % (40.0-70.0); PLATELET COUNT (AUTO) 319 K/uL (150-450); RED BLOOD CELL COUNT(AUTO) 4.56 MIL/uL (4.00-5.20); RED CELL DISTRIBUTION WIDTH 15.9 % (11.5-14.5); WHITE BLOOD COUNT (AUTO) 6.9 K/uL (4.5-11.0)
[2024-04-28 12:03] LABS: CALCIUM, TOTAL 9.2 mg/dL (8.8-10.5); CREATININE 2.19 mg/dL (0.60-1.30); POTASSIUM 3.6 mmol/L (3.5-5.1)
[2024-04-28 12:11] LABS: SARS-COV2 (COVID) ANTIGEN,FIA Negative (Negative)
[2024-04-28 12:12] LABS: INFLUENZA TYPE A NEGATIVE FOR TYPE A (NEGATIVE); INFLUENZA TYPE B NEGATIVE FOR TYPE B (NEGATIVE)
[2024-04-28 13:30] VITALS: BP 126/67; PULSE 102; RESP 18; O2SAT 99
[2024-04-28] MEDS: IBUPROFEN 600 MG TABLET PO ONE (13:39)
[2024-04-28] MEDS: AMOX TR/POT CLAV 875 MG/125 MG TABLET PO ONE (13:39)
[2024-04-28] MEDS ORDERED: ARIP15TA27 PO (13:43)
[2024-04-28] MEDS ORDERED: IBUP-1506 PO (13:43)
[2024-04-28] MEDS ORDERED: AMOX-457 PO (13:44)
[2024-04-29] MEDS ORDERED: IBUP-2076 PO (15:00)
[2024-04-29] MEDS ORDERED: EMTR1TAB23 PO (15:00)
== END 2024-04-28 14:06 | disposition home or self-care (01) ==
LOC: EMS 11:21
DX: H66.93 Otitis media, unspecified, bilateral (principal); Z76.0 Encounter for issue of repeat prescription; R53.83 Other fatigue; R05.9 Cough, unspecified; F17.210 Nicotine dependence, cigarettes, uncomplicated; F12.90 Cannabis use, unspecified, uncomplicated; F15.10 Other stimulant abuse, uncomplicated; Z91.018 Allergy to other foods; Z91.011 Allergy to milk products; Z88.1 Allergy status to other antibiotic agents; Z20.822 Contact with and (suspected) exposure to COVID-19
CPT/HCPCS: 69209; 80048; 85025; 87804; 99283

== ENCOUNTER 2024-04-29 14:54 | Emergency (ER) | payer OTHER ==
[~2024-04-29] VITALS: Ht 160 cm; Wt 95.2 kg
[~2024-04-29 14:54] MED LIST changes: +AMOX-457 PO; -ARIP10TA56 PO; +ARIP15TA27 PO; -CEPH-558 PO; -EMTR1TAB53 PO; +IBUP-1506 PO
[2024-04-29 14:58] VITALS: TEMP 98.3
[2024-04-29] MEDS ORDERED: IBUP-2076 PO (15:00)
[2024-04-29] MEDS ORDERED: EMTR1TAB23 PO (15:00)
[2024-04-29 22:23] VITALS: BP 141/78; PULSE 89; RESP 17; O2SAT 99
[2024-04-29] MEDS: LIDOCAINE 5% TRANSDERMAL PATCH TD ONE (23:09)
[2024-04-29] MEDS: KETOROLAC TROMETHAMINE 30 MG/ML VIAL IM ONE (23:10)
[2024-04-29] MEDS: ACETAMINOPHEN 500 MG TABLET PO ONE (23:10)
[2024-04-29] MEDS: METHOCARBAMOL 500 MG TABLET PO ONE (23:13)
[2024-04-30] MEDS ORDERED: METH-812 PO (00:59)
== END 2024-04-30 02:29 | disposition home or self-care (01) ==
LOC: EMS 14:57
DX: M54.50 Low back pain, unspecified (principal); G43.909 Migraine, unspecified, not intractable, without status migrainosus; F20.9 Schizophrenia, unspecified; F17.210 Nicotine dependence, cigarettes, uncomplicated; F12.90 Cannabis use, unspecified, uncomplicated; F15.90 Other stimulant use, unspecified, uncomplicated; Z98.51 Tubal ligation status; Z98.890 Other specified postprocedural states; Z88.1 Allergy status to other antibiotic agents; Z91.011 Allergy to milk products; Z91.018 Allergy to other foods
CPT/HCPCS: 99284; 96372; J1885

== ENCOUNTER 2024-05-03 22:47 | Emergency (ER) | payer OTHER ==
[~2024-05-03] VITALS: Ht 160 cm; Wt 96.8 kg
[2024-05-03] MEDS: LORazepam 2 MG TABLET PO ONE (03:16)
[~2024-05-03 22:47] MED LIST changes: +EMTR1TAB23 PO; +IBUP-2076 PO; +METH-812 PO
[2024-05-03 22:56] VITALS: BP 108/68; PULSE 94; RESP 16; TEMP 97.9; O2SAT 100
[2024-05-04] MEDS: ARIPiprazole 15 MG TABLET PO ONE (03:11)
== END 2024-05-04 03:17 | disposition home or self-care (01) ==
LOC: EMS 22:58
DX: F20.0 Paranoid schizophrenia (principal); G43.909 Migraine, unspecified, not intractable, without status migrainosus; F20.9 Schizophrenia, unspecified; F17.210 Nicotine dependence, cigarettes, uncomplicated; F12.90 Cannabis use, unspecified, uncomplicated; F15.90 Other stimulant use, unspecified, uncomplicated; Z98.51 Tubal ligation status; Z98.890 Other specified postprocedural states; Z88.1 Allergy status to other antibiotic agents; Z91.011 Allergy to milk products; Z91.018 Allergy to other foods
CPT/HCPCS: 99284; Z7502; Z7610

== ENCOUNTER 2024-05-09 14:34 | Inpatient (IN) | payer MEDICAID, OTHER ==
[~2024-05-09] VITALS: Ht 160 cm; Wt 102.2 kg
[2024-05-09] MEDS ORDERED: HALOPERIDOL 5 MG TABLET PO PRN ×2 (14:45→20:45)
[2024-05-09] MEDS ORDERED: ZOLPIDEM TARTRATE 10 MG TABLET PO PRN (14:45)
[2024-05-09 17:52] VITALS: BP 124/90; PULSE 87; RESP 18; TEMP 96.8; O2SAT 0
[2024-05-09 18:24] VITALS: BP 119/77; PULSE 93; RESP 18; TEMP 97.2; O2SAT 100
[2024-05-09 21:06] VITALS: BP 103/62; PULSE 89; RESP 18; TEMP 97.9
[2024-05-10 08:14] VITALS: BP 107/69; PULSE 65; RESP 17; TEMP 97.9; O2SAT 100
[2024-05-10 08:28] LABS: BASOPHILS % (AUTO) 0.9 % (0.0-2.0); EOSINOPHILS % (AUTO) 3.9 % (1.0-6.0); HEMATOCRIT 34.7 % (36-46); HEMOGLOBIN 11.1 g/dL (12.0-16.0); LYMPHOCYTES # (AUTO) 1.7 K/uL (1.0-4.8); LYMPHOCYTES % (AUTO) 33.4 % (22.0-44.0); MEAN CORPUSCULAR HEMOGLOBIN 27.8 pg (26.0-34.0); MEAN CORPUSCULAR HGB CONC 32.1 G/dL (31.0-37.0); MEAN CORPUSCULAR VOLUME 87 fL (80-100); MONOCYTES # (AUTO) 0.4 K/uL (0.1-1.0); MONOCYTES % (AUTO) 7.1 % (2.0-9.0); NEUTROPHILS # (AUTO) 2.8 K/uL (1.8-7.7); NEUTROPHILS % (AUTO) 54.7 % (40.0-70.0); PLATELET COUNT (AUTO) 244 K/uL (150-450); RED BLOOD CELL COUNT(AUTO) 4.01 MIL/uL (4.00-5.20); RED CELL DISTRIBUTION WIDTH 16.2 % (11.5-14.5); WHITE BLOOD COUNT (AUTO) 5.2 K/uL (4.5-11.0)
[2024-05-10 08:42] LABS: APPEARANCE,URINE CLEAR (CLEAR); BILIRUBIN,URINE NEGATIVE (NEGATIVE); COLOR,URINE LIGHT YELLOW (YELLOW); GLUCOSE, URINE (UA) NEGATIVE (NEGATIVE); KETONES,URINE NEGATIVE (NEGATIVE); LEUKOCYTE ESTERASE ,URINE SMALL (NEGATIVE); NITRATE,URINE NEGATIVE (NEGATIVE); OCCULT BLOOD,URINE NEGATIVE (NEGATIVE); PROTEIN,URINE NEGATIVE (NEGATIVE); SPECIFIC GRAVITIY, URINE 1.012 (1.003-1.030); UROBILINOGEN,URINE <=1.0 mg/dL (<=1.0)
[2024-05-10 08:43] LABS: HEMOGLOBIN A1C 5.6 % (3.8-5.6)
[2024-05-10 09:00] LABS: ALANINE AMINOTRANSFERASE 11 U/L (12-78); ALBUMIN 2.5 g/dL (3.4-5.0); ALKALINE PHOSPHATASE 50 U/L (46-116); ANION GAP 4 mmol/L (8-16); ASPARTATE AMINOTRANSFERASE 16 U/L (15-37); BILIRUBIN,TOTAL 0.1 mg/dL (0.1-1.0); CALCIUM, TOTAL 7.8 mg/dL (8.8-10.5); CARBON DIOXIDE 27 mmol/L (22-29); CHLORIDE 107 mmol/L (98-107); CHOL/HDL RATIO 3.4 (3.9-5.7); CHOLESTEROL 146 mg/dL (131-200); CREATININE 0.81 mg/dL (0.60-1.30); FREE T4 (FREE THYROXINE) 0.69 ng/dL (0.76-1.46); GLOMERULAR FILTR. RATE CALC > 60 mL/min (>60); GLUCOSE,RANDOM 76 mg/dL (70-110); HCG,QUANTITATIVE < 1 mIU/mL (0-6); HDL CHOLESTEROL 43 mg/dL (40-60); LDL CHOL (CALC.) 93 mg/dL (0-130); POTASSIUM 4.1 mmol/L (3.5-5.1); SODIUM SERUM 138 mmol/L (136-145); THYROID STIMULATING HORMONE 1.29 uIU/mL (0.36-3.74); TOTAL PROTEIN, SERUM 5.6 g/dL (6.4-8.2); TRIGLYCERIDES 48 mg/dL (15-150); UREA NITROGEN, BLOOD 9 mg/dL (7-18)
[2024-05-10 09:04] LABS: BACTERIA,URINE None Seen /HPF (None Seen); RBC,URINE None Seen /HPF (0-2); SQUAMOUS EPITHELIAL CELL,UR Few /LPF (None Seen)
[2024-05-10 09:08] LABS: ALCOHOL, URINE DRUG SCREEN NEGATIVE (NEGATIVE); AMPHET/METH SCREEN,URINE POSITIVE (NEGATIVE); BARBITURATE SCREEN, URINE NEGATIVE (NEGATIVE); BENZODIAZEPINES SCREEN,URINE NEGATIVE (NEGATIVE); CANNABINOID SCREEN,URINE NEGATIVE (NEGATIVE); COCAINE SCREEN,URINE NEGATIVE (NEGATIVE); METHADONE SCREEN, URINE NEGATIVE (NEGATIVE); OPIATE SCREEN,URINE NEGATIVE (NEGATIVE); PHENCYCLIDINE SCREEN,URINE NEGATIVE (NEGATIVE)
[2024-05-10] MEDS ORDERED: METHOCARBAMOL 750 MG TABLET PO PRN (10:30)
[2024-05-10] MEDS ORDERED: BACITRACIN 28 GM OINTMENT TP PRN (10:30)
[2024-05-10] MEDS ORDERED: DOCUSATE SODIUM 100 MG CAPSULE PO PRN (10:30)
[2024-05-10] MEDS ORDERED: ONDANSETRON 4 MG TABLET PO PRN (10:30)
[2024-05-10] MEDS ORDERED: ACETAMINOPHEN 325 MG TABLET PO PRN (10:30)
[2024-05-10] MEDS ORDERED: PETROLATUM,WHITE 28 GM JELLY TP PRN (10:30)
[2024-05-10] MEDS ORDERED: LOPERAMIDE HCL 2 MG CAPSULE PO PRN (10:30)
[2024-05-10] MEDS ORDERED: CloNIDine HCL 0.1 MG TABLET PO PRN (10:30)
[2024-05-10] MEDS ORDERED: MAGNESIUM HYDROXIDE SUSPENSION 30 ML UDCUP PO PRN (10:30)
[2024-05-10] MEDS ORDERED: ALBUTEROL SULFATE HFA 90 MCG/PUFF 8 GM INHALER IH PRN (10:30)
[2024-05-10] MEDS ORDERED: OMEPRAZOLE 20 MG CAPSULE PO PRN (10:30)
[2024-05-10 12:47] VITALS: RESP 17
[2024-05-10] MEDS: MAG HYDROX/ALUMINUM HYD/SIMETH ES 30 ML SUSPENSION UDCUP PO PRN (12:47)
[2024-05-10] MEDS: IBUPROFEN 600 MG TABLET PO PRN (12:47)
[2024-05-10 13:47] VITALS: RESP 17
[2024-05-10 20:00] VITALS: BP 130/86; PULSE 71; RESP 17; TEMP 97.3; O2SAT 100
[2024-05-11 08:12] VITALS: BP 111/66; PULSE 71; RESP 16; TEMP 97.2; O2SAT 100
[2024-05-11] MEDS: ARIPiprazole 15 MG TABLET PO SCH (09:18)
[2024-05-11] MEDS: EMTRICITABINE/TENOFOVIR 200-300 MG TABLET PO SCH (09:19)
[2024-05-11] MEDS: PHENAZOPYRIDINE HCL 100 MG TABLET PO SCH (13:00)
[2024-05-11] MEDS: LORazepam 2 MG TABLET PO PRN (15:19)
[2024-05-11 21:50] VITALS: BP 109/70; PULSE 90; RESP 17; TEMP 97.3; O2SAT 97
[2024-05-12 08:16] VITALS: BP 118/88; PULSE 87; RESP 18; TEMP 97.4; O2SAT 99
[2024-05-12 20:14] VITALS: BP 120/80; PULSE 86; RESP 18; TEMP 97.3; O2SAT 98
[2024-05-12 20:36] VITALS: BP 119/79; PULSE 80; RESP 17; TEMP 97.9; O2SAT 100
[2024-05-12 21:14] VITALS: RESP 18; O2SAT 99
[2024-05-13 08:14] VITALS: BP 110/73; PULSE 99; RESP 18; TEMP 97.4; O2SAT 100
[2024-05-13] MEDS: BENZOCAINE/MENTHOL LOZENGE PO PRN (15:49)
[2024-05-13 20:42] VITALS: BP 102/70; PULSE 88; RESP 18; TEMP 97.6; O2SAT 96
[2024-05-14 09:04] VITALS: BP 100/60; PULSE 70; RESP 16; TEMP 97.3; O2SAT 98
[2024-05-14] MEDS: NICOTINE POLACRILEX 2 MG LOZENGE PO PRN (12:16)
[2024-05-14] MEDS ORDERED: ARIP15TA27 PO (12:22)
== END 2024-05-14 14:25 | disposition home or self-care (01) | DRG 751 ==
LOC: B2S 15:15
PROVIDERS: ADMIT Psychiatry & Neurology Psychiatry; ATTEND Psychiatry & Neurology Psychiatry
DX: F33.9 Major depressive disorder, recurrent, unspecified (principal); E66.9 Obesity, unspecified; F20.9 Schizophrenia, unspecified; F12.90 Cannabis use, unspecified, uncomplicated; F41.9 Anxiety disorder, unspecified; Z68.39 Body mass index [BMI] 39.0-39.9, adult; G43.909 Migraine, unspecified, not intractable, without status migrainosus; K59.00 Constipation, unspecified; G47.00 Insomnia, unspecified; Z20.6 Contact with and (suspected) exposure to human immunodeficiency virus [HIV]; F19.10 Other psychoactive substance abuse, uncomplicated
CPT/HCPCS: 80053; 80061; 80307; 81001; 83036; 84439; 84443; 84702; 85025; 87081; 87086; 87186

== ENCOUNTER 2024-05-19 11:43 | Emergency (ER) | payer MEDICAID, OTHER ==
[~2024-05-19] VITALS: Ht 157.5 cm; Wt 100.0 kg
[~2024-05-19 11:43] MED LIST changes: -AMOX-457 PO; -IBUP-1506 PO; -IBUP-2076 PO; -METH-812 PO
[2024-05-19 11:48] VITALS: TEMP 98.7
[2024-05-19 12:53] LABS: BASOPHILS % (AUTO) 2.5 % (0.0-2.0); EOSINOPHILS % (AUTO) 4.5 % (1.0-6.0); HEMATOCRIT 38.8 % (36-46); HEMOGLOBIN 12.1 g/dL (12.0-16.0); LYMPHOCYTES # (AUTO) 1.9 K/uL (1.0-4.8); LYMPHOCYTES % (AUTO) 49.6 % (22.0-44.0); MEAN CORPUSCULAR HEMOGLOBIN 27.2 pg (26.0-34.0); MEAN CORPUSCULAR HGB CONC 31.2 G/dL (31.0-37.0); MEAN CORPUSCULAR VOLUME 87 fL (80-100); MONOCYTES # (AUTO) 0.4 K/uL (0.1-1.0); MONOCYTES % (AUTO) 9.4 % (2.0-9.0); NEUTROPHILS # (AUTO) 1.3 K/uL (1.8-7.7); PLATELET COUNT (AUTO) 291 K/uL (150-450); RED BLOOD CELL COUNT(AUTO) 4.45 MIL/uL (4.00-5.20); RED CELL DISTRIBUTION WIDTH 16.1 % (11.5-14.5); WHITE BLOOD COUNT (AUTO) 3.9 K/uL (4.5-11.0)
[2024-05-19 13:05] LABS: ANION GAP 11 mmol/L (8-16); CALCIUM, TOTAL 8.6 mg/dL (8.8-10.5); CARBON DIOXIDE 25 mmol/L (22-29); CHLORIDE 102 mmol/L (98-107); GLOMERULAR FILTR. RATE CALC > 60 mL/min (>60); GLUCOSE,RANDOM 100 mg/dL (70-110); POTASSIUM 4.1 mmol/L (3.5-5.1); SODIUM SERUM 138 mmol/L (136-145); UREA NITROGEN, BLOOD 13 mg/dL (7-18)
[2024-05-19 13:06] LABS: PREGNANCY RESULT, SERUM NEGATIVE (NEGATIVE)
[2024-05-19 13:11] LABS: ALANINE AMINOTRANSFERASE 17 U/L (12-78); ALBUMIN 3.5 g/dL (3.4-5.0); ALKALINE PHOSPHATASE 64 U/L (46-116); ASPARTATE AMINOTRANSFERASE 20 U/L (15-37); BILIRUBIN,TOTAL 0.2 mg/dL (0.1-1.0); TOTAL PROTEIN, SERUM 7.1 g/dL (6.4-8.2)
[2024-05-19 13:17] LABS: APPEARANCE,URINE HAZY (CLEAR); BILIRUBIN,URINE NEGATIVE (NEGATIVE); COLOR,URINE YELLOW (YELLOW); GLUCOSE, URINE (UA) NEGATIVE (NEGATIVE); KETONES,URINE NEGATIVE (NEGATIVE); LEUKOCYTE ESTERASE ,URINE LARGE (NEGATIVE); NITRATE,URINE NEGATIVE (NEGATIVE); OCCULT BLOOD,URINE NEGATIVE (NEGATIVE); PROTEIN,URINE 30-70 mg/dL (NEGATIVE); SPECIFIC GRAVITIY, URINE 1.034 (1.003-1.030)
[2024-05-19] MEDS: CefTRIAXone SODIUM 1 GM/VIAL IM ONE (13:22)
[2024-05-19] MEDS: NEOMYCIN/POLYMYXIN B/HYDROCORT 10 ML OTIC SOLUTION AS ONE (13:22)
[2024-05-19] MEDS: LIDOCAINE/PF 1% 2 ML VIAL IM ONE (13:23)
[2024-05-19] MEDS: DOXYCYCLINE HYCLATE 100 MG TABLET PO ONE (13:23)
[2024-05-19 13:28] LABS: BACTERIA,URINE Moderate /HPF (None Seen); RBC,URINE None Seen /HPF (0-2); SQUAMOUS EPITHELIAL CELL,UR Many /LPF (None Seen)
[2024-05-19] MEDS ORDERED: METR500 PO (13:33)
[2024-05-19] MEDS ORDERED: DOXY-354 PO (13:33)
[2024-05-19] MEDS ORDERED: EMTR1TAB53 PO (13:33)
[2024-05-19] MEDS ORDERED: CEPH-558 PO (13:33)
[2024-05-19] MEDS ORDERED: RALT400T PO (13:33)
[2024-05-19] MEDS ORDERED: ONDA-104 PO (13:33)
[2024-05-19] MEDS: MetroNIDAZOLE 250 MG TABLET PO ONE (14:07)
[2024-05-19] MEDS: EMTRICITABINE/TENOFOVIR 200-300 MG TABLET PO ONE (14:07)
[2024-05-19] MEDS: RALTEGRAVIR 400 MG TABLET PO ONE (14:08)
[2024-05-19 14:28] LABS: RAPID PLASMA REAGIN NONREACTIVE (NONREACTIVE)
[2024-05-19 14:32] VITALS: BP 125/67; PULSE 89; RESP 18; O2SAT 98
[2024-05-20 04:06] LABS: HIV 1-2 SCREEN 4TH GEN W/RFLX Non Reactive (Non Reactive)
== END 2024-05-19 15:19 | disposition home or self-care (01) ==
LOC: EMS 11:45
DX: A59.9 Trichomoniasis, unspecified (principal); N76.0 Acute vaginitis; N39.0 Urinary tract infection, site not specified; H60.92 Unspecified otitis externa, left ear; J45.909 Unspecified asthma, uncomplicated; F17.210 Nicotine dependence, cigarettes, uncomplicated; F15.10 Other stimulant abuse, uncomplicated; F12.90 Cannabis use, unspecified, uncomplicated; Z88.1 Allergy status to other antibiotic agents; Z91.011 Allergy to milk products; Z91.018 Allergy to other foods
CPT/HCPCS: 99284; 86592; 80053; 81001; 85025; 87210; 36415; 87086; 87186; 87491; 87591; 96372; 87389; 84703; J0696; J3490

== ENCOUNTER 2024-05-23 18:47 | Emergency (ER) | payer OTHER ==
[~2024-05-23] VITALS: Ht 160 cm; Wt 95.9 kg
[~2024-05-23 18:47] MED LIST changes: +CEPH-558 PO; +DOXY-354 PO; -EMTR1TAB23 PO; +EMTR1TAB53 PO; +METR500 PO; +ONDA-104 PO; +RALT400T PO
[2024-05-23 18:58] VITALS: BP 119/66; PULSE 106; RESP 18; TEMP 97.9; O2SAT 99
== END 2024-05-23 20:45 | disposition left against medical advice (07) ==
LOC: EMS 18:47
DX: R19.7 Diarrhea, unspecified (principal); R11.0 Nausea; Z53.21 Procedure and treatment not carried out due to patient leaving prior to being seen by health care provider

== ENCOUNTER 2024-05-26 14:27 | Inpatient (IN) | payer MEDICAID ==
[~2024-05-26] VITALS: Ht 160 cm; Wt 98.2 kg
[~2024-05-26 14:27] MED LIST changes: -CEPH-558 PO; -DOXY-354 PO; -EMTR1TAB53 PO; -METR500 PO; -ONDA-104 PO; -RALT400T PO
[2024-05-26] MEDS ORDERED: HALOPERIDOL 5 MG TABLET PO PRN (15:45)
[2024-05-26 16:05] LABS: GLUCOMETER DEV NAME(LOC) POC.BV; POC SARS-COV2 AG, FIA NEGATIVE (NEGATIVE)
[2024-05-26 20:08] VITALS: BP 101/58; PULSE 90; RESP 16; TEMP 96.8; O2SAT 97
[2024-05-26 21:47] VITALS: BP 101/58; PULSE 90; RESP 16; TEMP 96.8
[2024-05-27] MEDS ORDERED: DOCUSATE SODIUM 100 MG CAPSULE PO PRN (07:30)
[2024-05-27] MEDS ORDERED: MAGNESIUM HYDROXIDE SUSPENSION 30 ML UDCUP PO PRN (07:30)
[2024-05-27] MEDS ORDERED: BACITRACIN 28 GM OINTMENT TP PRN (07:30)
[2024-05-27] MEDS ORDERED: MAG HYDROX/ALUMINUM HYD/SIMETH ES 30 ML SUSPENSION UDCUP PO PRN (07:30)
[2024-05-27] MEDS ORDERED: LOPERAMIDE HCL 2 MG CAPSULE PO PRN (07:30)
[2024-05-27] MEDS ORDERED: CloNIDine HCL 0.1 MG TABLET PO PRN (07:30)
[2024-05-27] MEDS ORDERED: ONDANSETRON 4 MG TABLET PO PRN (07:30)
[2024-05-27] MEDS ORDERED: ACETAMINOPHEN 325 MG TABLET PO PRN (07:30)
[2024-05-27] MEDS ORDERED: ALBUTEROL SULFATE HFA 90 MCG/PUFF 8 GM INHALER IH PRN (07:30)
[2024-05-27] MEDS ORDERED: BENZOCAINE/MENTHOL LOZENGE PO PRN (07:30)
[2024-05-27] MEDS ORDERED: PETROLATUM,WHITE 28 GM JELLY TP PRN (07:30)
[2024-05-27] MEDS ORDERED: OMEPRAZOLE 20 MG CAPSULE PO PRN (07:30)
[2024-05-27 08:25] VITALS: BP 98/59; PULSE 86; RESP 16; TEMP 98.2; O2SAT 98
[2024-05-27] MEDS: METHOCARBAMOL 750 MG TABLET PO SCH (08:42)
[2024-05-27] MEDS: EMTRICITABINE/TENOFOVIR 200-300 MG TABLET PO SCH (08:43)
[2024-05-27 08:56] LABS: BASOPHILS % (AUTO) 0.7 % (0.0-2.0); EOSINOPHILS % (AUTO) 4.5 % (1.0-6.0); HEMOGLOBIN 12.2 g/dL (12.0-16.0); LYMPHOCYTES # (AUTO) 1.8 K/uL (1.0-4.8); LYMPHOCYTES % (AUTO) 39.8 % (22.0-44.0); MEAN CORPUSCULAR HEMOGLOBIN 27.7 pg (26.0-34.0); MEAN CORPUSCULAR HGB CONC 31.4 G/dL (31.0-37.0); MEAN CORPUSCULAR VOLUME 88 fL (80-100); MONOCYTES # (AUTO) 0.5 K/uL (0.1-1.0); MONOCYTES % (AUTO) 10.8 % (2.0-9.0); NEUTROPHILS % (AUTO) 44.2 % (40.0-70.0); PLATELET COUNT (AUTO) 259 K/uL (150-450); RED BLOOD CELL COUNT(AUTO) 4.42 MIL/uL (4.00-5.20); RED CELL DISTRIBUTION WIDTH 16.2 % (11.5-14.5); WHITE BLOOD COUNT (AUTO) 4.6 K/uL (4.5-11.0)
[2024-05-27 09:09] LABS: HEMOGLOBIN A1C 5.5 % (3.8-5.6)
[2024-05-27 09:23] LABS: APPEARANCE,URINE TURBID (CLEAR); BILIRUBIN,URINE NEGATIVE (NEGATIVE); GLUCOSE, URINE (UA) NEGATIVE (NEGATIVE); KETONES,URINE NEGATIVE (NEGATIVE); LEUKOCYTE ESTERASE ,URINE NEGATIVE (NEGATIVE); NITRATE,URINE NEGATIVE (NEGATIVE); OCCULT BLOOD,URINE NEGATIVE (NEGATIVE); PROTEIN,URINE 30-70 mg/dL (NEGATIVE)
[2024-05-27 09:25] LABS: ALANINE AMINOTRANSFERASE 17 U/L (12-78); ALBUMIN 3.2 g/dL (3.4-5.0); ALKALINE PHOSPHATASE 69 U/L (46-116); ANION GAP 11 mmol/L (8-16); ASPARTATE AMINOTRANSFERASE 17 U/L (15-37); BILIRUBIN,TOTAL 0.1 mg/dL (0.1-1.0); CALCIUM, TOTAL 8.3 mg/dL (8.8-10.5); CARBON DIOXIDE 26 mmol/L (22-29); CHLORIDE 103 mmol/L (98-107); CHOL/HDL RATIO 4.7 (3.9-5.7); CHOLESTEROL 135 mg/dL (131-200); CREATININE 0.94 mg/dL (0.60-1.30); FREE T4 (FREE THYROXINE) 0.65 ng/dL (0.76-1.46); GLOMERULAR FILTR. RATE CALC > 60 mL/min (>60); GLUCOSE,RANDOM 71 mg/dL (70-110); HDL CHOLESTEROL 29 mg/dL (40-60); LDL CHOL (CALC.) 62 mg/dL (0-130); POTASSIUM 3.7 mmol/L (3.5-5.1); SODIUM SERUM 140 mmol/L (136-145); T4 (THYROXINE) 5.5 mcg/dL (4.7-13.3); THYROID STIMULATING HORMONE 0.84 uIU/mL (0.36-3.74); TOTAL PROTEIN, SERUM 6.7 g/dL (6.4-8.2); TRIGLYCERIDES 219 mg/dL (15-150); UREA NITROGEN, BLOOD 14 mg/dL (7-18)
[2024-05-27 09:26] LABS: COLOR,URINE YELLOW (YELLOW)
[2024-05-27] MEDS: LORazepam 2 MG TABLET PO PRN (09:47)
[2024-05-27 09:57] LABS: ALCOHOL, URINE DRUG SCREEN NEGATIVE (NEGATIVE); AMPHET/METH SCREEN,URINE POSITIVE (NEGATIVE); BARBITURATE SCREEN, URINE NEGATIVE (NEGATIVE); BENZODIAZEPINES SCREEN,URINE NEGATIVE (NEGATIVE); CANNABINOID SCREEN,URINE POSITIVE (NEGATIVE); COCAINE SCREEN,URINE NEGATIVE (NEGATIVE); METHADONE SCREEN, URINE NEGATIVE (NEGATIVE); OPIATE SCREEN,URINE NEGATIVE (NEGATIVE); PHENCYCLIDINE SCREEN,URINE NEGATIVE (NEGATIVE)
[2024-05-27] MEDS: ARIPiprazole 15 MG TABLET PO SCH (10:49)
[2024-05-27 23:35] VITALS: BP 112/62; PULSE 84; RESP 16; TEMP 97; O2SAT 97
[2024-05-28 08:16] VITALS: BP 101/67; PULSE 100; RESP 18; TEMP 97.3; O2SAT 97
[2024-05-28 21:22] VITALS: BP 128/99; PULSE 99; RESP 18; TEMP 97.8; O2SAT 99
[2024-05-29] MEDS: ZOLPIDEM TARTRATE 10 MG TABLET PO PRN (00:44)
[2024-05-29 08:15] VITALS: BP 100/65; PULSE 94; RESP 18; TEMP 97.9; O2SAT 100
[2024-05-29 16:22] VITALS: BP 124/68; PULSE 98; RESP 18; TEMP 97.6; O2SAT 99
[2024-05-29 21:41] VITALS: BP 124/68; PULSE 98; RESP 18; TEMP 97.6; O2SAT 99
[2024-05-30 08:14] VITALS: BP 103/62; PULSE 78; RESP 16; TEMP 96.9; O2SAT 97
[2024-05-30] MEDS: IBUPROFEN 600 MG TABLET PO PRN (12:20)
[2024-05-30 13:41] VITALS: RESP 17
[2024-05-30 20:16] VITALS: BP 95/65; PULSE 73; RESP 16; O2SAT 98
[2024-05-31 08:25] VITALS: BP 100/60; PULSE 79; RESP 16; TEMP 97.9; O2SAT 99
[2024-05-31] MEDS ORDERED: RALT400T PO (15:52)
[2024-05-31] MEDS ORDERED: EMTR1TAB23 PO (15:52)
[2024-05-31 16:00] VITALS: RESP 18
[2024-05-31] MEDS ORDERED: NICOTINE POLACRILEX 2 MG LOZENGE PO PRN (16:15)
[2024-06-01 05:11] VITALS: BP 109/79; PULSE 88; RESP 18; TEMP 97.1; O2SAT 98
[2024-06-01 08:45] VITALS: BP 110/76; PULSE 79; RESP 17; TEMP 97.6; O2SAT 98
[2024-06-01] MEDS ORDERED: ARIP15TA27 PO (15:37)
[2024-06-01] MEDS ORDERED: METH-812 PO (15:38)
[2024-06-02] MEDS ORDERED: ONDA-104 PO (22:58)
[2024-06-02] MEDS ORDERED: ACET-66 PO (22:58)
== END 2024-06-01 18:19 | disposition home or self-care (01) | DRG 751 ==
LOC: B3A 16:36
PROVIDERS: ADMIT Psychiatry & Neurology Psychiatry; ATTEND Psychiatry & Neurology Psychiatry
DX: F33.9 Major depressive disorder, recurrent, unspecified (principal); F25.9 Schizoaffective disorder, unspecified; E66.9 Obesity, unspecified; F41.9 Anxiety disorder, unspecified; G43.909 Migraine, unspecified, not intractable, without status migrainosus; Z20.822 Contact with and (suspected) exposure to COVID-19; F12.90 Cannabis use, unspecified, uncomplicated; F19.10 Other psychoactive substance abuse, uncomplicated; G47.00 Insomnia, unspecified; K59.00 Constipation, unspecified; Z68.38 Body mass index [BMI] 38.0-38.9, adult; Z20.6 Contact with and (suspected) exposure to human immunodeficiency virus [HIV]
CPT/HCPCS: 80053; 80061; 80307; 81003; 83036; 84436; 84439; 84443; 85025; 86592

== ENCOUNTER 2024-06-02 19:31 | Emergency (ER) | payer MEDICAID ==
[~2024-06-02] VITALS: Ht 160 cm; Wt 98.2 kg
[~2024-06-02 19:31] MED LIST changes: +EMTR1TAB23 PO; +METH-812 PO
[2024-06-02 20:13] VITALS: BP 105/68; PULSE 80; RESP 20; TEMP 97.5; O2SAT 100
[2024-06-02 20:47] LABS: BASOPHILS % (AUTO) 0.8 % (0.0-2.0); EOSINOPHILS % (AUTO) 1.4 % (1.0-6.0); HEMATOCRIT 37.9 % (36-46); HEMOGLOBIN 12.1 g/dL (12.0-16.0); LYMPHOCYTES # (AUTO) 2.6 K/uL (1.0-4.8); LYMPHOCYTES % (AUTO) 40.3 % (22.0-44.0); MEAN CORPUSCULAR HEMOGLOBIN 28.1 pg (26.0-34.0); MEAN CORPUSCULAR VOLUME 88 fL (80-100); MONOCYTES # (AUTO) 0.4 K/uL (0.1-1.0); MONOCYTES % (AUTO) 6.8 % (2.0-9.0); NEUTROPHILS # (AUTO) 3.2 K/uL (1.8-7.7); NEUTROPHILS % (AUTO) 50.7 % (40.0-70.0); PLATELET COUNT (AUTO) 264 K/uL (150-450); RED CELL DISTRIBUTION WIDTH 16.4 % (11.5-14.5); WHITE BLOOD COUNT (AUTO) 6.3 K/uL (4.5-11.0)
[2024-06-02 21:00] LABS: ANION GAP 11 mmol/L (8-16); CALCIUM, TOTAL 8.9 mg/dL (8.8-10.5); CARBON DIOXIDE 26 mmol/L (22-29); CHLORIDE 102 mmol/L (98-107); CREATININE 1.13 mg/dL (0.60-1.30); GLOMERULAR FILTR. RATE CALC > 60 mL/min (>60); GLUCOSE,RANDOM 92 mg/dL (70-110); POTASSIUM 3.9 mmol/L (3.5-5.1); SODIUM SERUM 139 mmol/L (136-145); UREA NITROGEN, BLOOD 14 mg/dL (7-18)
[2024-06-02 21:10] LABS: HCG,QUANTITATIVE < 1 mIU/mL (0-6); LIPASE 33 U/L (16-77)
[2024-06-02 22:04] LABS: APPEARANCE,URINE CLEAR (CLEAR); BILIRUBIN,URINE NEGATIVE (NEGATIVE); COLOR,URINE YELLOW (YELLOW); GLUCOSE, URINE (UA) NEGATIVE (NEGATIVE); KETONES,URINE NEGATIVE (NEGATIVE); LEUKOCYTE ESTERASE ,URINE NEGATIVE (NEGATIVE); NITRATE,URINE NEGATIVE (NEGATIVE); OCCULT BLOOD,URINE TRACE (NEGATIVE); PROTEIN,URINE TRACE mg/dL (NEGATIVE); SPECIFIC GRAVITIY, URINE 1.035 (1.003-1.030)
[2024-06-02 22:13] LABS: WBC,URINE 0-2 /HPF (0-5)
[2024-06-02 22:14] LABS: BACTERIA,URINE Rare /HPF (None Seen); SQUAMOUS EPITHELIAL CELL,UR Few /LPF (None Seen)
[2024-06-02] MEDS ORDERED: ACET-66 PO (22:58)
[2024-06-02] MEDS ORDERED: ONDA-104 PO (22:58)
[2024-06-02] MEDS: ONDANSETRON 4 MG TABLET PO ONE (23:00)
[2024-06-02] MEDS: ARIPiprazole 15 MG TABLET PO ONE (23:00)
[2024-06-02] MEDS: ACETAMINOPHEN 500 MG TABLET PO ONE (23:00)
[2024-06-02] MEDS: DIPHENOXYLATE/ATROP 2.5-0.025 MG TABLET PO ONE (23:00)
== END 2024-06-02 23:45 | disposition home or self-care (01) ==
LOC: EMS 19:31
DX: K52.9 Noninfective gastroenteritis and colitis, unspecified (principal); F20.0 Paranoid schizophrenia; G43.909 Migraine, unspecified, not intractable, without status migrainosus; J45.909 Unspecified asthma, uncomplicated; F12.90 Cannabis use, unspecified, uncomplicated; F15.90 Other stimulant use, unspecified, uncomplicated; F17.210 Nicotine dependence, cigarettes, uncomplicated; Z59.00 Homelessness unspecified; Z98.51 Tubal ligation status; Z88.1 Allergy status to other antibiotic agents; Z98.890 Other specified postprocedural states; Z91.011 Allergy to milk products; Z91.018 Allergy to other foods
CPT/HCPCS: 99284; 80048; 81001; 83690; 84702; 85025; 36415; Q0162

== ENCOUNTER 2024-06-06 18:38 | Emergency (ER) | payer MEDICAID ==
[~2024-06-06] VITALS: Ht 157.5 cm; Wt 101.0 kg
[~2024-06-06 18:38] MED LIST changes: +ACET-66 PO; +ONDA-104 PO
[2024-06-06 18:56] VITALS: TEMP 98.7
[2024-06-06 19:33] LABS: BASOPHILS % (AUTO) 0.8 % (0.0-2.0); EOSINOPHILS % (AUTO) 1.2 % (1.0-6.0); HEMATOCRIT 37.8 % (36-46); HEMOGLOBIN 12.2 g/dL (12.0-16.0); LYMPHOCYTES # (AUTO) 2.3 K/uL (1.0-4.8); LYMPHOCYTES % (AUTO) 39.1 % (22.0-44.0); MEAN CORPUSCULAR HEMOGLOBIN 28.4 pg (26.0-34.0); MEAN CORPUSCULAR HGB CONC 32.3 G/dL (31.0-37.0); MEAN CORPUSCULAR VOLUME 88 fL (80-100); MONOCYTES # (AUTO) 0.4 K/uL (0.1-1.0); MONOCYTES % (AUTO) 6.5 % (2.0-9.0); NEUTROPHILS % (AUTO) 52.4 % (40.0-70.0); PLATELET COUNT (AUTO) 303 K/uL (150-450); RED CELL DISTRIBUTION WIDTH 16.7 % (11.5-14.5); WHITE BLOOD COUNT (AUTO) 5.8 K/uL (4.5-11.0)
[2024-06-06 19:38] LABS: ANION GAP 7 mmol/L (8-16); CALCIUM, TOTAL 8.7 mg/dL (8.8-10.5); CARBON DIOXIDE 28 mmol/L (22-29); CHLORIDE 103 mmol/L (98-107); CREATININE 1.04 mg/dL (0.60-1.30); GLOMERULAR FILTR. RATE CALC > 60 mL/min (>60); GLUCOSE,RANDOM 94 mg/dL (70-110); SODIUM SERUM 138 mmol/L (136-145); UREA NITROGEN, BLOOD 16 mg/dL (7-18)
[2024-06-06 19:46] LABS: ALANINE AMINOTRANSFERASE 15 U/L (12-78); ALBUMIN 3.5 g/dL (3.4-5.0); ALKALINE PHOSPHATASE 64 U/L (46-116); ASPARTATE AMINOTRANSFERASE 12 U/L (15-37); BILIRUBIN,TOTAL 0.1 mg/dL (0.1-1.0); LIPASE 42 U/L (16-77); TOTAL PROTEIN, SERUM 7.4 g/dL (6.4-8.2)
[2024-06-06 19:54] LABS: BILIRUBIN,DIRECT < 0.05 mg/dL (0.00-0.20)
[2024-06-06] MEDS: MAG HYDROX/ALUMINUM HYD/SIMETH 30 ML SUSPENSION UDCUP PO ONE (20:10)
[2024-06-06] MEDS: FAMOTIDINE 20 MG TABLET PO ONE (20:10)
[2024-06-06] MEDS: ACETAMINOPHEN 500 MG TABLET PO ONE (20:10)
[2024-06-06] MEDS ORDERED: SODIUM CHLORIDE 0.9% 100 ML ONE (20:15)
[2024-06-06] MEDS ORDERED: IOHEXOL 350 MG/ML 100 ML VIAL ONE (20:15)
[2024-06-06 21:09] LABS: APPEARANCE,URINE CLEAR (CLEAR); BILIRUBIN,URINE NEGATIVE (NEGATIVE); COLOR,URINE YELLOW (YELLOW); GLUCOSE, URINE (UA) NEGATIVE (NEGATIVE); KETONES,URINE NEGATIVE (NEGATIVE); LEUKOCYTE ESTERASE ,URINE NEGATIVE (NEGATIVE); NITRATE,URINE NEGATIVE (NEGATIVE); OCCULT BLOOD,URINE NEGATIVE (NEGATIVE); PROTEIN,URINE TRACE mg/dL (NEGATIVE); SPECIFIC GRAVITIY, URINE 1.033 (1.003-1.030)
[2024-06-06 21:17] LABS: ALCOHOL, URINE DRUG SCREEN NEGATIVE (NEGATIVE); AMPHET/METH SCREEN,URINE NEGATIVE (NEGATIVE); BARBITURATE SCREEN, URINE NEGATIVE (NEGATIVE); BENZODIAZEPINES SCREEN,URINE NEGATIVE (NEGATIVE); CANNABINOID SCREEN,URINE POSITIVE (NEGATIVE); COCAINE SCREEN,URINE NEGATIVE (NEGATIVE); METHADONE SCREEN, URINE NEGATIVE (NEGATIVE); OPIATE SCREEN,URINE NEGATIVE (NEGATIVE); PHENCYCLIDINE SCREEN,URINE NEGATIVE (NEGATIVE)
[2024-06-06 21:58] VITALS: BP 131/70; PULSE 89; RESP 18; O2SAT 98
[2024-06-06] MEDS ORDERED: ACET-3385 PO (22:06)
[2024-06-06] MEDS ORDERED: ONDA-104 PO (22:06)
== END 2024-06-06 22:23 | disposition home or self-care (01) ==
LOC: EMS 18:38
DX: K62.89 Other specified diseases of anus and rectum (principal); J45.909 Unspecified asthma, uncomplicated; G43.909 Migraine, unspecified, not intractable, without status migrainosus; F20.9 Schizophrenia, unspecified; F12.90 Cannabis use, unspecified, uncomplicated; F15.90 Other stimulant use, unspecified, uncomplicated; F17.210 Nicotine dependence, cigarettes, uncomplicated; Z98.51 Tubal ligation status; Z88.1 Allergy status to other antibiotic agents; Z98.890 Other specified postprocedural states; Z91.011 Allergy to milk products; Z91.018 Allergy to other foods
CPT/HCPCS: 99285; 74177; 80048; 80076; 81003; 83690; 84703; 85025; 36415; 80307; Q9967; J7050

== ENCOUNTER 2024-06-07 20:42 | Inpatient (IN) | payer MEDICAID ==
[~2024-06-07] VITALS: Ht 160 cm; Wt 98.6 kg
[~2024-06-07 20:42] MED LIST changes: +ACET-3385 PO
[2024-06-07] MEDS ORDERED: HALOPERIDOL 5 MG TABLET PO PRN (21:45)
[2024-06-07 22:15] LABS: GLUCOMETER DEV NAME(LOC) POC.BV; POC SARS-COV2 AG, FIA NEGATIVE (NEGATIVE)
[2024-06-07 23:26] VITALS: BP 118/70; PULSE 97; RESP 18; TEMP 96.5; O2SAT 100
[2024-06-08 00:07] VITALS: BP 118/70; PULSE 97; RESP 18; TEMP 96.5; O2SAT 100
[2024-06-08] MEDS ORDERED: LOPERAMIDE HCL 2 MG CAPSULE PO PRN (01:00)
[2024-06-08] MEDS ORDERED: CloNIDine HCL 0.1 MG TABLET PO PRN (01:00)
[2024-06-08] MEDS ORDERED: MAGNESIUM HYDROXIDE SUSPENSION 30 ML UDCUP PO PRN (01:00)
[2024-06-08] MEDS ORDERED: ACETAMINOPHEN 325 MG TABLET PO PRN (01:00)
[2024-06-08] MEDS ORDERED: BACITRACIN 28 GM OINTMENT TP PRN (01:00)
[2024-06-08] MEDS ORDERED: ALBUTEROL SULFATE HFA 90 MCG/PUFF 8 GM INHALER IH PRN (01:00)
[2024-06-08] MEDS ORDERED: OMEPRAZOLE 20 MG CAPSULE PO PRN (01:00)
[2024-06-08] MEDS ORDERED: DOCUSATE SODIUM 100 MG CAPSULE PO PRN (01:00)
[2024-06-08] MEDS ORDERED: BENZOCAINE/MENTHOL LOZENGE PO PRN (01:00)
[2024-06-08] MEDS ORDERED: PETROLATUM,WHITE 28 GM JELLY TP PRN (01:00)
[2024-06-08] MEDS ORDERED: ONDANSETRON 4 MG TABLET PO PRN (01:00)
[2024-06-08] MEDS: INFLUENZA VIRUS VACCINE TVS (6MO+) 2024-25/PF 45 MCG/0.5 ML SYRINGE IM. ONE (02:30)
[2024-06-08 08:21] VITALS: BP 109/66; PULSE 82; RESP 16; TEMP 98.9; O2SAT 97
[2024-06-08 08:38] LABS: BASOPHILS % (AUTO) 0.5 % (0.0-2.0); EOSINOPHILS % (AUTO) 4.8 % (1.0-6.0); HEMOGLOBIN 11.8 g/dL (12.0-16.0); LYMPHOCYTES # (AUTO) 2.2 K/uL (1.0-4.8); LYMPHOCYTES % (AUTO) 44.9 % (22.0-44.0); MEAN CORPUSCULAR HEMOGLOBIN 27.9 pg (26.0-34.0); MEAN CORPUSCULAR VOLUME 87 fL (80-100); MONOCYTES # (AUTO) 0.5 K/uL (0.1-1.0); MONOCYTES % (AUTO) 9.9 % (2.0-9.0); NEUTROPHILS % (AUTO) 39.9 % (40.0-70.0); PLATELET COUNT (AUTO) 275 K/uL (150-450); RED BLOOD CELL COUNT(AUTO) 4.24 MIL/uL (4.00-5.20); RED CELL DISTRIBUTION WIDTH 16.7 % (11.5-14.5); WHITE BLOOD COUNT (AUTO) 4.9 K/uL (4.5-11.0)
[2024-06-08] MEDS: METHOCARBAMOL 750 MG TABLET PO SCH (09:00)
[2024-06-08 09:03] LABS: HEMOGLOBIN A1C 5.5 % (3.8-5.6)
[2024-06-08 09:04] LABS: ALANINE AMINOTRANSFERASE 12 U/L (12-78); ALBUMIN 2.9 g/dL (3.4-5.0); ALKALINE PHOSPHATASE 59 U/L (46-116); ANION GAP 5 mmol/L (8-16); ASPARTATE AMINOTRANSFERASE 12 U/L (15-37); BILIRUBIN,TOTAL 0.2 mg/dL (0.1-1.0); CALCIUM, TOTAL 8.9 mg/dL (8.8-10.5); CARBON DIOXIDE 28 mmol/L (22-29); CHLORIDE 105 mmol/L (98-107); CHOL/HDL RATIO 3.5 (3.9-5.7); CHOLESTEROL 173 mg/dL (131-200); CREATININE 0.92 mg/dL (0.60-1.30); FREE T4 (FREE THYROXINE) 0.66 ng/dL (0.76-1.46); GLOMERULAR FILTR. RATE CALC > 60 mL/min (>60); GLUCOSE,RANDOM 82 mg/dL (70-110); HCG,QUANTITATIVE < 1 mIU/mL (0-6); HDL CHOLESTEROL 50 mg/dL (40-60); LDL CHOL (CALC.) 110 mg/dL (0-130); POTASSIUM 4.4 mmol/L (3.5-5.1); SODIUM SERUM 138 mmol/L (136-145); THYROID STIMULATING HORMONE 2.19 uIU/mL (0.36-3.74); TOTAL PROTEIN, SERUM 6.4 g/dL (6.4-8.2); TRIGLYCERIDES 67 mg/dL (15-150); UREA NITROGEN, BLOOD 12 mg/dL (7-18)
[2024-06-08] MEDS: EMTRICITABINE/TENOFOVIR 200-300 MG TABLET PO SCH (09:32)
[2024-06-08] MEDS: ARIPiprazole 15 MG TABLET PO SCH (14:53)
[2024-06-08 21:14] VITALS: BP 102/63; PULSE 75; RESP 18; TEMP 97.7; O2SAT 100
[2024-06-09 08:13] VITALS: BP 90/52; PULSE 82; RESP 17; TEMP 97; O2SAT 100
[2024-06-09 12:36] LABS: APPEARANCE,URINE CLEAR (CLEAR); BILIRUBIN,URINE NEGATIVE (NEGATIVE); COLOR,URINE LIGHT YELLOW (YELLOW); GLUCOSE, URINE (UA) NEGATIVE (NEGATIVE); KETONES,URINE NEGATIVE (NEGATIVE); LEUKOCYTE ESTERASE ,URINE NEGATIVE (NEGATIVE); NITRATE,URINE NEGATIVE (NEGATIVE); OCCULT BLOOD,URINE NEGATIVE (NEGATIVE); PH,URINE 7.5 (5.0-8.0); PH,URINE DRUG SCREEN 7.5 (5.0-8.0); PROTEIN,URINE NEGATIVE (NEGATIVE); SPECIFIC GRAVITIY, URINE 1.021 (1.003-1.030); UROBILINOGEN,URINE <=1.0 mg/dL (<=1.0)
[2024-06-09 12:44] LABS: AMPHET/METH SCREEN,URINE NEGATIVE (NEGATIVE); BARBITURATE SCREEN, URINE NEGATIVE (NEGATIVE); BENZODIAZEPINES SCREEN,URINE NEGATIVE (NEGATIVE); CANNABINOID SCREEN,URINE NEGATIVE (NEGATIVE); COCAINE SCREEN,URINE NEGATIVE (NEGATIVE); METHADONE SCREEN, URINE NEGATIVE (NEGATIVE); OPIATE SCREEN,URINE NEGATIVE (NEGATIVE); PHENCYCLIDINE SCREEN,URINE NEGATIVE (NEGATIVE)
[2024-06-09 12:45] LABS: ALCOHOL, URINE DRUG SCREEN NEGATIVE (NEGATIVE)
[2024-06-09] MEDS: NICOTINE POLACRILEX 2 MG LOZENGE PO PRN (16:55)
[2024-06-09] MEDS: MAG HYDROX/ALUMINUM HYD/SIMETH 30 ML SUSPENSION UDCUP PO PRN (16:55)
[2024-06-09] MEDS: LORazepam 2 MG TABLET PO PRN (16:55)
[2024-06-09 20:18] VITALS: BP 95/74; PULSE 98; RESP 18; TEMP 97.5; O2SAT 96
[2024-06-09] MEDS: ZOLPIDEM TARTRATE 10 MG TABLET PO PRN (21:28)
[2024-06-09] MEDS: ETHYL ALCOHOL 62% ANTISEPTIC NASAL SANITIZER 0.6 ML AMPUL NASAL SCH (21:28)
[2024-06-09] MEDS: MELATONIN 3 MG TABLET PO SCH (21:29)
[2024-06-09] MEDS: CHLORHEXIDINE GLUCONATE 2% TOWELETTE [2'S/6'S] TP SCH (21:29)
[2024-06-10 08:34] VITALS: BP 113/77; PULSE 86; RESP 16; TEMP 98; O2SAT 100
[2024-06-10 13:01] VITALS: BP 113/77; PULSE 86; RESP 16; TEMP 98; O2SAT 100
[2024-06-10 16:16] VITALS: BP 114/72; PULSE 84; RESP 17; TEMP 98; O2SAT 99
[2024-06-10 21:03] VITALS: BP 104/55; PULSE 77; RESP 17; TEMP 97; O2SAT 96
[2024-06-11 08:06] VITALS: BP 102/68; PULSE 82; RESP 16; TEMP 96.6; O2SAT 100
[2024-06-11 20:24] VITALS: BP 124/86; PULSE 84; RESP 17; TEMP 96.4; O2SAT 98
[2024-06-12] MEDS: MAG HYDROX/ALUMINUM HYD/SIMETH ES 30 ML SUSPENSION UDCUP PO PRN (05:07)
[2024-06-12 08:16] VITALS: BP 107/69; PULSE 96; RESP 18; TEMP 97.6; O2SAT 96
[2024-06-12 09:53] LABS: APPEARANCE,URINE CLEAR (CLEAR); BILIRUBIN,URINE NEGATIVE (NEGATIVE); COLOR,URINE LIGHT YELLOW (YELLOW); GLUCOSE, URINE (UA) NEGATIVE (NEGATIVE); KETONES,URINE NEGATIVE (NEGATIVE); LEUKOCYTE ESTERASE ,URINE NEGATIVE (NEGATIVE); NITRATE,URINE NEGATIVE (NEGATIVE); OCCULT BLOOD,URINE NEGATIVE (NEGATIVE); PROTEIN,URINE NEGATIVE (NEGATIVE); SPECIFIC GRAVITIY, URINE 1.015 (1.003-1.030); UROBILINOGEN,URINE <=1.0 mg/dL (<=1.0)
[2024-06-12 10:09] LABS: BACTERIA,URINE None Seen /HPF (None Seen); RBC,URINE None Seen /HPF (0-2); WBC,URINE None Seen /HPF (0-5)
[2024-06-12 13:49] VITALS: BP 107/69; RESP 17; O2SAT 96
[2024-06-12] MEDS: IBUPROFEN 600 MG TABLET PO PRN (13:49)
[2024-06-12] MEDS: HydrOXYzine PAMOATE 25 MG CAPSULE PO PRN (16:57)
[2024-06-12 20:14] VITALS: BP 121/51; PULSE 77; RESP 16; TEMP 96.6; O2SAT 98
[2024-06-12] MEDS: TraZODone HCL 50 MG TABLET PO SCH (20:39)
[2024-06-13 08:08] VITALS: BP 119/67; PULSE 94; RESP 17; TEMP 97.1; O2SAT 97
[2024-06-13] MEDS ORDERED: TRAZ-252 PO (09:36)
[2024-06-15 07:07] LABS: HERPES SIMPLEX VIRUS-1 BY PCR Negative (Negative); HERPES SIMPLEX VIRUS-2 BY PCR Negative (Negative)
== END 2024-06-13 12:50 | disposition home or self-care (01) | DRG 750 ==
LOC: B2S 21:44
PROVIDERS: ADMIT Psychiatry & Neurology Psychiatry; ATTEND Psychiatry & Neurology Psychiatry
DX: F25.9 Schizoaffective disorder, unspecified (principal); E66.9 Obesity, unspecified; F41.9 Anxiety disorder, unspecified; K59.00 Constipation, unspecified; G47.00 Insomnia, unspecified; G43.909 Migraine, unspecified, not intractable, without status migrainosus; F12.90 Cannabis use, unspecified, uncomplicated; F15.10 Other stimulant abuse, uncomplicated; Z20.822 Contact with and (suspected) exposure to COVID-19; Z20.6 Contact with and (suspected) exposure to human immunodeficiency virus [HIV]; Z68.38 Body mass index [BMI] 38.0-38.9, adult
CPT/HCPCS: 80053; 80061; 80307; 81001; 81003; 83036; 84439; 84443; 84702; 85025; 87081; 87491; 87529; 87591

== ENCOUNTER 2024-06-16 09:20 | Emergency (ER) | payer MEDICAID, OTHER ==
[~2024-06-16] VITALS: Ht 160 cm; Wt 90.9 kg
[~2024-06-16 09:20] MED LIST changes: -ACET-3385 PO; -ACET-66 PO; -METH-812 PO; -ONDA-104 PO; +TRAZ-252 PO
[2024-06-16 09:34] VITALS: TEMP 98.2
[2024-06-16 10:03] LABS: APPEARANCE,URINE HAZY (CLEAR); BILIRUBIN,URINE NEGATIVE (NEGATIVE); COLOR,URINE YELLOW (YELLOW); GLUCOSE, URINE (UA) NEGATIVE (NEGATIVE); KETONES,URINE NEGATIVE (NEGATIVE); LEUKOCYTE ESTERASE ,URINE TRACE (NEGATIVE); NITRATE,URINE NEGATIVE (NEGATIVE); OCCULT BLOOD,URINE NEGATIVE (NEGATIVE); PH,URINE 6.5 (5.0-8.0); PROTEIN,URINE TRACE mg/dL (NEGATIVE); SPECIFIC GRAVITIY, URINE 1.025 (1.003-1.030); UROBILINOGEN,URINE <=1.0 mg/dL (<=1.0)
[2024-06-16 10:11] LABS: BACTERIA,URINE Few /HPF (None Seen); RBC,URINE 0-2 /HPF (0-2); SQUAMOUS EPITHELIAL CELL,UR Many /LPF (None Seen); WBC,URINE 0-2 /HPF (0-5)
[2024-06-16 10:14] LABS: BASOPHILS % (AUTO) 1.2 % (0.0-2.0); EOSINOPHILS % (AUTO) 3.2 % (1.0-6.0); HEMATOCRIT 38.8 % (36-46); HEMOGLOBIN 12.4 g/dL (12.0-16.0); LYMPHOCYTES # (AUTO) 1.7 K/uL (1.0-4.8); LYMPHOCYTES % (AUTO) 45.5 % (22.0-44.0); MEAN CORPUSCULAR HEMOGLOBIN 28.1 pg (26.0-34.0); MEAN CORPUSCULAR VOLUME 88 fL (80-100); MONOCYTES # (AUTO) 0.3 K/uL (0.1-1.0); MONOCYTES % (AUTO) 9.1 % (2.0-9.0); NEUTROPHILS # (AUTO) 1.5 K/uL (1.8-7.7); PLATELET COUNT (AUTO) 289 K/uL (150-450); RED BLOOD CELL COUNT(AUTO) 4.43 MIL/uL (4.00-5.20); RED CELL DISTRIBUTION WIDTH 16.8 % (11.5-14.5); WHITE BLOOD COUNT (AUTO) 3.8 K/uL (4.5-11.0)
[2024-06-16 10:27] LABS: ANION GAP 7 mmol/L (8-16); CALCIUM, TOTAL 8.3 mg/dL (8.8-10.5); CARBON DIOXIDE 26 mmol/L (22-29); CHLORIDE 101 mmol/L (98-107); CREATININE 1.11 mg/dL (0.60-1.30); GLOMERULAR FILTR. RATE CALC > 60 mL/min (>60); GLUCOSE,RANDOM 71 mg/dL (70-110); SODIUM SERUM 134 mmol/L (136-145); UREA NITROGEN, BLOOD 15 mg/dL (7-18)
[2024-06-16 10:31] LABS: ALANINE AMINOTRANSFERASE 13 U/L (12-78); ALBUMIN 3.5 g/dL (3.4-5.0); ALKALINE PHOSPHATASE 61 U/L (46-116); ASPARTATE AMINOTRANSFERASE 14 U/L (15-37); BILIRUBIN,TOTAL 0.3 mg/dL (0.1-1.0); LIPASE 24 U/L (16-77); TOTAL PROTEIN, SERUM 7.4 g/dL (6.4-8.2)
[2024-06-16] MEDS ORDERED: AMOX-457 PO (10:39)
[2024-06-16] MEDS ORDERED: LOPE-232 PO (10:40)
[2024-06-16] MEDS ORDERED: OFLO5DRO4 AS (10:50)
[2024-06-16 10:52] VITALS: BP 110/70; PULSE 80; RESP 14; O2SAT 99
== END 2024-06-16 11:02 | disposition home or self-care (01) ==
LOC: EDUNIT# 09:20 → EMS 09:20
DX: T16.1XXA Foreign body in right ear, initial encounter (principal); T16.2XXA Foreign body in left ear, initial encounter; H66.93 Otitis media, unspecified, bilateral; J45.909 Unspecified asthma, uncomplicated; F20.9 Schizophrenia, unspecified; F12.90 Cannabis use, unspecified, uncomplicated; F17.210 Nicotine dependence, cigarettes, uncomplicated; G43.909 Migraine, unspecified, not intractable, without status migrainosus; F15.90 Other stimulant use, unspecified, uncomplicated; Z98.51 Tubal ligation status; Z88.1 Allergy status to other antibiotic agents; Z98.890 Other specified postprocedural states; W44.9XXA Unspecified foreign body entering into or through a natural orifice, initial encounter; W44.8XXA Other foreign body entering into or through a natural orifice, initial encounter; Y93.89 Activity, other specified; Y92.89 Other specified places as the place of occurrence of the external cause; Y99.8 Other external cause status
CPT/HCPCS: 69200; 80048; 80076; 81001; 83690; 85025; 99284

== ENCOUNTER 2024-06-29 09:57 | Emergency (ER) | payer OTHER ==
[~2024-06-29] VITALS: Ht 160 cm; Wt 100.0 kg
[~2024-06-29 09:57] MED LIST changes: +AMOX-457 PO; +LOPE-232 PO; +OFLO5DRO4 AS
[2024-06-29 10:17] VITALS: TEMP 98.1
[2024-06-29 12:17] VITALS: BP 132/82; PULSE 82; RESP 16; O2SAT 98
== END 2024-06-29 12:18 | disposition home or self-care (01) ==
LOC: EMS 09:57
DX: T19.2XXA Foreign body in vulva and vagina, initial encounter (principal); J45.909 Unspecified asthma, uncomplicated; F12.90 Cannabis use, unspecified, uncomplicated; F20.9 Schizophrenia, unspecified; Z88.1 Allergy status to other antibiotic agents; Z98.51 Tubal ligation status; Z79.899 Other long term (current) drug therapy; W44.8XXA Other foreign body entering into or through a natural orifice, initial encounter; Y93.89 Activity, other specified; Y92.89 Other specified places as the place of occurrence of the external cause; Y99.8 Other external cause status
CPT/HCPCS: 99281; Z7502

== ENCOUNTER 2024-07-07 12:29 | Emergency (ER) | payer OTHER ==
[~2024-07-07] VITALS: Ht 160 cm; Wt 102.7 kg
[2024-07-07 13:04] VITALS: TEMP 98
[2024-07-07 14:30] VITALS: BP 124/74; PULSE 90; RESP 16; O2SAT 99
[2024-07-07] MEDS ORDERED: POLY119P3 PO (14:46)
[2024-07-07] MEDS ORDERED: ARIP15TA27 PO (14:46)
[2024-07-07] MEDS ORDERED: EMTR1TAB23 PO (14:46)
[2024-07-07] MEDS ORDERED: TRAZ-257 PO (14:46)
[2024-07-07] MEDS ORDERED: CEPH-558 PO (14:46)
== END 2024-07-07 15:00 | disposition home or self-care (01) ==
LOC: EMS 12:29
DX: T76.21XA Adult sexual abuse, suspected, initial encounter (principal); N39.0 Urinary tract infection, site not specified; F20.0 Paranoid schizophrenia; J45.909 Unspecified asthma, uncomplicated; F12.90 Cannabis use, unspecified, uncomplicated; F17.210 Nicotine dependence, cigarettes, uncomplicated; Z88.1 Allergy status to other antibiotic agents; Z91.018 Allergy to other foods; Z98.51 Tubal ligation status; Z59.00 Homelessness unspecified; Z79.899 Other long term (current) drug therapy; Y99.8 Other external cause status
CPT/HCPCS: 99283; Z7502

== ENCOUNTER 2024-07-15 12:30 | Emergency (ER) | payer OTHER ==
[~2024-07-15] VITALS: Ht 165.1 cm; Wt 72.7 kg
[~2024-07-15 12:30] MED LIST changes: -AMOX-457 PO; +CEPH-558 PO; -LOPE-232 PO; -OFLO5DRO4 AS; +POLY119P3 PO; -TRAZ-252 PO; +TRAZ-257 PO
[2024-07-15 12:45] VITALS: BP 106/54; PULSE 76; RESP 18; TEMP 97.9; O2SAT 99
[2024-07-15] MEDS ORDERED: ARIPIPRAZOLE PO (12:47)
[2024-07-15 14:03] LABS: APPEARANCE,URINE CLEAR (CLEAR); BILIRUBIN,URINE NEGATIVE (NEGATIVE); COLOR,URINE LIGHT YELLOW (YELLOW); GLUCOSE, URINE (UA) NEGATIVE (NEGATIVE); KETONES,URINE NEGATIVE (NEGATIVE); LEUKOCYTE ESTERASE ,URINE NEGATIVE (NEGATIVE); NITRATE,URINE NEGATIVE (NEGATIVE); OCCULT BLOOD,URINE NEGATIVE (NEGATIVE); PROTEIN,URINE NEGATIVE (NEGATIVE); SPECIFIC GRAVITIY, URINE 1.014 (1.003-1.030); UROBILINOGEN,URINE <=1.0 mg/dL (<=1.0)
[2024-07-15 15:09] LABS: AMPHET/METH SCREEN,URINE NEGATIVE (NEGATIVE); BARBITURATE SCREEN, URINE NEGATIVE (NEGATIVE); BENZODIAZEPINES SCREEN,URINE NEGATIVE (NEGATIVE); CANNABINOID SCREEN,URINE NEGATIVE (NEGATIVE); COCAINE SCREEN,URINE NEGATIVE (NEGATIVE); METHADONE SCREEN, URINE NEGATIVE (NEGATIVE); OPIATE SCREEN,URINE NEGATIVE (NEGATIVE); PHENCYCLIDINE SCREEN,URINE POSITIVE (NEGATIVE)
[2024-07-15 15:10] LABS: ALCOHOL, URINE DRUG SCREEN NEGATIVE (NEGATIVE)
== END 2024-07-15 15:15 | disposition home or self-care (01) ==
LOC: EMS 12:30
DX: R30.9 Painful micturition, unspecified (principal); R35.89 Other polyuria; R10.2 Pelvic and perineal pain; J45.909 Unspecified asthma, uncomplicated; F20.9 Schizophrenia, unspecified; Z88.1 Allergy status to other antibiotic agents; Z91.018 Allergy to other foods; Z98.51 Tubal ligation status; Z79.899 Other long term (current) drug therapy
CPT/HCPCS: 80307; 81003; 99283

== ENCOUNTER 2024-08-01 09:05 | Emergency (ER) | payer OTHER ==
[~2024-08-01] VITALS: Ht 165.1 cm; Wt 73.0 kg
[~2024-08-01 09:05] MED LIST changes: +ARIPIPRAZOLE PO; -CEPH-558 PO; -TRAZ-257 PO
[2024-08-01 09:55] VITALS: BP 117/68; PULSE 76; RESP 18; TEMP 98.4; O2SAT 98
[2024-08-01] MEDS: DIPHENOXYLATE/ATROP 2.5-0.025 MG TABLET PO ONE (11:00)
[2024-08-01] MEDS ORDERED: ONDANSETRON HCL 4 MG/2 ML VIAL IVP ONE (11:00)
[2024-08-01] MEDS: ONDANSETRON 4 MG TABLET PO ONE (11:00)
[2024-08-01 11:20] LABS: BASOPHILS % (AUTO) 1.5 % (0.0-2.0); EOSINOPHILS % (AUTO) 4.4 % (1.0-6.0); HEMATOCRIT 38.4 % (36-46); HEMOGLOBIN 12.1 g/dL (12.0-16.0); LYMPHOCYTES # (AUTO) 1.9 K/uL (1.0-4.8); LYMPHOCYTES % (AUTO) 45.2 % (22.0-44.0); MEAN CORPUSCULAR HGB CONC 31.4 G/dL (31.0-37.0); MEAN CORPUSCULAR VOLUME 89 fL (80-100); MONOCYTES # (AUTO) 0.4 K/uL (0.1-1.0); MONOCYTES % (AUTO) 10.4 % (2.0-9.0); NEUTROPHILS # (AUTO) 1.6 K/uL (1.8-7.7); NEUTROPHILS % (AUTO) 38.5 % (40.0-70.0); PLATELET COUNT (AUTO) 272 K/uL (150-450); RED BLOOD CELL COUNT(AUTO) 4.31 MIL/uL (4.00-5.20); RED CELL DISTRIBUTION WIDTH 16.7 % (11.5-14.5); WHITE BLOOD COUNT (AUTO) 4.3 K/uL (4.5-11.0)
[2024-08-01] MEDS: MAG HYDROX/ALUMINUM HYD/SIMETH ES 30 ML SUSPENSION UDCUP PO ONE (11:33)
[2024-08-01] MEDS: FAMOTIDINE 20 MG TABLET PO ONE (11:33)
[2024-08-01 11:39] LABS: ANION GAP 10 mmol/L (8-16); CALCIUM, TOTAL 8.6 mg/dL (8.8-10.5); CARBON DIOXIDE 26 mmol/L (22-29); CHLORIDE 103 mmol/L (98-107); CREATININE 1.05 mg/dL (0.60-1.30); GLOMERULAR FILTR. RATE CALC > 60 mL/min (>60); GLUCOSE,RANDOM 75 mg/dL (70-110); POTASSIUM 3.9 mmol/L (3.5-5.1); SODIUM SERUM 139 mmol/L (136-145); UREA NITROGEN, BLOOD 9 mg/dL (7-18)
== END 2024-08-01 12:30 | disposition home or self-care (01) ==
LOC: EMS 09:05
DX: R11.2 Nausea with vomiting, unspecified (principal); R19.7 Diarrhea, unspecified; J45.909 Unspecified asthma, uncomplicated; F17.210 Nicotine dependence, cigarettes, uncomplicated; F20.9 Schizophrenia, unspecified; Z88.1 Allergy status to other antibiotic agents; Z91.018 Allergy to other foods; Z98.51 Tubal ligation status; Z79.899 Other long term (current) drug therapy
CPT/HCPCS: 99284; 80048; 85025; 36415; Q0162

== ENCOUNTER 2024-08-05 17:49 | Emergency (ER) | payer OTHER ==
[~2024-08-05] VITALS: Ht 160 cm; Wt 101.5 kg
[2024-08-05 20:31] LABS: APPEARANCE,URINE HAZY (CLEAR); BILIRUBIN,URINE NEGATIVE (NEGATIVE); COLOR,URINE YELLOW (YELLOW); GLUCOSE, URINE (UA) NEGATIVE (NEGATIVE); KETONES,URINE NEGATIVE (NEGATIVE); LEUKOCYTE ESTERASE ,URINE MODERATE (NEGATIVE); NITRATE,URINE NEGATIVE (NEGATIVE); OCCULT BLOOD,URINE LARGE (NEGATIVE); PROTEIN,URINE TRACE mg/dL (NEGATIVE); SPECIFIC GRAVITIY, URINE 1.026 (1.003-1.030); UROBILINOGEN,URINE <=1.0 mg/dL (<=1.0)
[2024-08-05 20:48] LABS: BACTERIA,URINE Few /HPF (None Seen); SQUAMOUS EPITHELIAL CELL,UR Few /LPF (None Seen)
[2024-08-05 21:30] VITALS: BP 118/72; PULSE 87; RESP 18; TEMP 98.6; O2SAT 99
[2024-08-05] MEDS: KETOROLAC TROMETHAMINE 30 MG/ML VIAL IVP ONE (21:30)
[2024-08-05] MEDS: BISMUTH SUBSALICYLATE 525 MG/30 ML SUSPENSION UDCUP PO ONE (21:30)
[2024-08-05] MEDS: CefTRIAXone 1 GM/DEXTROSE 50 ML IV ONE (21:30)
== END 2024-08-05 23:08 | disposition home or self-care (01) ==
LOC: EMS 17:49
DX: N39.0 Urinary tract infection, site not specified (principal); R31.9 Hematuria, unspecified; J45.909 Unspecified asthma, uncomplicated; F20.9 Schizophrenia, unspecified; Z88.1 Allergy status to other antibiotic agents; Z98.51 Tubal ligation status; Z79.899 Other long term (current) drug therapy
CPT/HCPCS: 99284; 96365; 96375; 81001; 87086; J0696; J1885

== ENCOUNTER 2024-08-31 11:52 | Emergency (ER) | payer OTHER ==
[~2024-08-31] VITALS: Ht 162.6 cm; Wt 95.5 kg
[2024-08-31 12:10] VITALS: BP 113/74; PULSE 102; RESP 18; TEMP 98.5; O2SAT 99
[2024-08-31 13:09] LABS: COVID AG,FIA SOURCE NASAL SWAB
[2024-08-31 13:49] LABS: SARS-COV2 (COVID) ANTIGEN,FIA Negative (Negative)
[2024-08-31 13:54] LABS: INFLUENZA TYPE A NEGATIVE FOR TYPE A (NEGATIVE); INFLUENZA TYPE B NEGATIVE FOR TYPE B (NEGATIVE)
== END 2024-08-31 16:27 | disposition left against medical advice (07) ==
LOC: EMS 11:52
DX: R05.9 Cough, unspecified (principal); R51.9 Headache, unspecified; R09.81 Nasal congestion; J45.909 Unspecified asthma, uncomplicated; F20.9 Schizophrenia, unspecified; Z88.1 Allergy status to other antibiotic agents; Z91.018 Allergy to other foods; Z79.899 Other long term (current) drug therapy; Z20.822 Contact with and (suspected) exposure to COVID-19
CPT/HCPCS: 87804; 99283

== ENCOUNTER 2024-09-29 20:51 | Emergency (ER) | payer OTHER ==
[~2024-09-29] VITALS: Ht 160 cm; Wt 100.0 kg
[2024-09-29 20:55] VITALS: TEMP 98.2
[2024-09-29 21:53] LABS: BASOPHILS % (AUTO) 1.1 % (0.0-2.0); EOSINOPHILS % (AUTO) 3.7 % (1.0-6.0); HEMATOCRIT 37.1 % (36-46); HEMOGLOBIN 11.7 g/dL (12.0-16.0); LYMPHOCYTES # (AUTO) 2.3 K/uL (1.0-4.8); LYMPHOCYTES % (AUTO) 50.1 % (22.0-44.0); MEAN CORPUSCULAR HEMOGLOBIN 27.6 pg (26.0-34.0); MEAN CORPUSCULAR HGB CONC 31.5 G/dL (31.0-37.0); MEAN CORPUSCULAR VOLUME 88 fL (80-100); MONOCYTES # (AUTO) 0.4 K/uL (0.1-1.0); MONOCYTES % (AUTO) 8.6 % (2.0-9.0); NEUTROPHILS # (AUTO) 1.7 K/uL (1.8-7.7); NEUTROPHILS % (AUTO) 36.5 % (40.0-70.0); PLATELET COUNT (AUTO) 266 K/uL (150-450); RED BLOOD CELL COUNT(AUTO) 4.23 MIL/uL (4.00-5.20); RED CELL DISTRIBUTION WIDTH 15.3 % (11.5-14.5); WHITE BLOOD COUNT (AUTO) 4.7 K/uL (4.5-11.0)
[2024-09-29 21:54] LABS: APPEARANCE,URINE HAZY (CLEAR); BILIRUBIN,URINE NEGATIVE (NEGATIVE); COLOR,URINE YELLOW (YELLOW); GLUCOSE, URINE (UA) NEGATIVE (NEGATIVE); KETONES,URINE NEGATIVE (NEGATIVE); LEUKOCYTE ESTERASE ,URINE LARGE (NEGATIVE); NITRATE,URINE NEGATIVE (NEGATIVE); OCCULT BLOOD,URINE NEGATIVE (NEGATIVE); PH,URINE 6.5 (5.0-8.0); PH,URINE DRUG SCREEN 6.5 (5.0-8.0); PROTEIN,URINE NEGATIVE (NEGATIVE); SPECIFIC GRAVITIY, URINE 1.023 (1.003-1.030); UROBILINOGEN,URINE <=1.0 mg/dL (<=1.0)
[2024-09-29 22:00] LABS: ALCOHOL, URINE DRUG SCREEN NEGATIVE (NEGATIVE); AMPHET/METH SCREEN,URINE NEGATIVE (NEGATIVE); BARBITURATE SCREEN, URINE NEGATIVE (NEGATIVE); BENZODIAZEPINES SCREEN,URINE NEGATIVE (NEGATIVE); CANNABINOID SCREEN,URINE POSITIVE (NEGATIVE); COCAINE SCREEN,URINE NEGATIVE (NEGATIVE); METHADONE SCREEN, URINE NEGATIVE (NEGATIVE); OPIATE SCREEN,URINE NEGATIVE (NEGATIVE); PHENCYCLIDINE SCREEN,URINE NEGATIVE (NEGATIVE)
[2024-09-29 22:06] LABS: ANION GAP 8 mmol/L (8-16); CALCIUM, TOTAL 8.9 mg/dL (8.8-10.5); CARBON DIOXIDE 29 mmol/L (22-29); CHLORIDE 106 mmol/L (98-107); CREATININE 0.91 mg/dL (0.60-1.30); GLOMERULAR FILTR. RATE CALC > 60 mL/min (>60); GLUCOSE,RANDOM 83 mg/dL (70-110); POTASSIUM 3.9 mmol/L (3.5-5.1); SODIUM SERUM 143 mmol/L (136-145); UREA NITROGEN, BLOOD 11 mg/dL (7-18)
[2024-09-29 22:10] LABS: BACTERIA,URINE Few /HPF (None Seen); RBC,URINE 0-2 /HPF (0-2); SQUAMOUS EPITHELIAL CELL,UR Few /LPF (None Seen); URINALYSIS COMMENT Few Trichomonas seen
[2024-09-29 22:12] LABS: HCG,QUANTITATIVE < 1 mIU/mL (0-6); LIPASE 42 U/L (16-77)
[2024-09-29] MEDS ORDERED: SODIUM CHLORIDE 0.9% 100 ML ONE (23:24)
[2024-09-29] MEDS ORDERED: IOHEXOL 350 MG/ML 100 ML VIAL ONE (23:24)
[2024-09-30] MEDS: MAG HYDROX/ALUMINUM HYD/SIMETH ES 30 ML SUSPENSION UDCUP PO ONE (00:10)
[2024-09-30] MEDS: ONDANSETRON HCL 4 MG/2 ML VIAL IVP ONE (00:10)
[2024-09-30] MEDS: CefTRIAXone SODIUM 500 MG in DEXTROSE 5%-WATER 50 ML IV ONE (03:29)
[2024-09-30] MEDS: MetroNIDAZOLE 250 MG TABLET PO ONE (03:30)
[2024-09-30] MEDS: DOXYCYCLINE HYCLATE 100 MG TABLET PO ONE (03:30)
[2024-09-30] MEDS ORDERED: METR500 PO (03:56)
[2024-09-30] MEDS ORDERED: DOXY-354 PO (03:56)
[2024-09-30 04:18] VITALS: BP 118/72; PULSE 72; RESP 18; O2SAT 99
== END 2024-09-30 04:21 | disposition home or self-care (01) ==
LOC: EMS 20:51
DX: A59.9 Trichomoniasis, unspecified (principal); R10.31 Right lower quadrant pain; R11.2 Nausea with vomiting, unspecified; J45.909 Unspecified asthma, uncomplicated; F20.9 Schizophrenia, unspecified; G43.909 Migraine, unspecified, not intractable, without status migrainosus; F17.210 Nicotine dependence, cigarettes, uncomplicated; Z79.899 Other long term (current) drug therapy; Z88.1 Allergy status to other antibiotic agents; Z98.51 Tubal ligation status
CPT/HCPCS: 99285; 80048; 81001; 83690; 84702; 85025; 87086; 36415; 80307; 74177; 96365; 96375; Q9967; J7050; J0696; J2405; J7060

== ENCOUNTER 2024-10-22 16:03 | Emergency (ER) | payer OTHER ==
[~2024-10-22] VITALS: Ht 157.5 cm; Wt 90.9 kg
[~2024-10-22 16:03] MED LIST changes: +DOXY-354 PO; +METR500 PO
[2024-10-22 16:07] VITALS: TEMP 98.3
[2024-10-22] MEDS: IBUPROFEN 600 MG TABLET PO ONE (16:46)
[2024-10-22] MEDS: ACETAMINOPHEN 500 MG TABLET PO ONE (16:47)
[2024-10-22] MEDS: LIDOCAINE 5% TRANSDERMAL PATCH TD ONE (16:48)
[2024-10-22 16:51] LABS: APPEARANCE,URINE CLEAR (CLEAR); BILIRUBIN,URINE NEGATIVE (NEGATIVE); COLOR,URINE YELLOW (YELLOW); GLUCOSE, URINE (UA) NEGATIVE (NEGATIVE); LEUKOCYTE ESTERASE ,URINE SMALL (NEGATIVE); NITRATE,URINE NEGATIVE (NEGATIVE); OCCULT BLOOD,URINE MODERATE (NEGATIVE); PROTEIN,URINE TRACE mg/dL (NEGATIVE); SPECIFIC GRAVITIY, URINE 1.029 (1.003-1.030); UROBILINOGEN,URINE <=1.0 mg/dL (<=1.0)
[2024-10-22 16:57] LABS: WBC,URINE 0-2 /HPF (0-5)
[2024-10-22 16:58] LABS: BACTERIA,URINE Few /HPF (None Seen); SQUAMOUS EPITHELIAL CELL,UR Few /LPF (None Seen)
[2024-10-22] MEDS ORDERED: LIDO700A15 TP (17:09)
[2024-10-22] MEDS ORDERED: IBUP-1492 PO (17:09)
[2024-10-22] MEDS ORDERED: ACET-3385 PO (17:09)
[2024-10-22 17:30] VITALS: BP 110/72; PULSE 80; RESP 16; O2SAT 99
== END 2024-10-22 17:46 | disposition home or self-care (01) ==
LOC: EMS 16:03
DX: S39.012A Strain of muscle, fascia and tendon of lower back, initial encounter (principal); F20.9 Schizophrenia, unspecified; J45.909 Unspecified asthma, uncomplicated; F17.210 Nicotine dependence, cigarettes, uncomplicated; Z88.1 Allergy status to other antibiotic agents; Z91.018 Allergy to other foods; Z79.899 Other long term (current) drug therapy; X58.XXXA Exposure to other specified factors, initial encounter; Y93.89 Activity, other specified; Y92.89 Other specified places as the place of occurrence of the external cause; Y99.8 Other external cause status
CPT/HCPCS: 81001; 99284; Z7502; Z7610

== ENCOUNTER 2024-10-24 18:18 | Emergency (ER) | payer OTHER ==
[~2024-10-24] VITALS: Ht 157.5 cm; Wt 91.0 kg
[~2024-10-24 18:18] MED LIST changes: +ACET-3385 PO; -ARIPIPRAZOLE PO; -DOXY-354 PO; +IBUP-1492 PO; +LIDO700A15 TP; -METR500 PO
[2024-10-24 18:30] VITALS: TEMP 98.6
[2024-10-24] MEDS ORDERED: GUAIFDM PO (19:26)
[2024-10-24] MEDS ORDERED: ACET-66 PO (19:26)
[2024-10-24] MEDS ORDERED: IBUP-1554 PO (19:26)
[2024-10-24] MEDS ORDERED: DIPH50CA37 PO (19:26)
[2024-10-24] MEDS: LIDOCAINE 5% TRANSDERMAL PATCH TD ONE (19:43)
[2024-10-24] MEDS: OXYMETAZOLINE HCL 0.05% 15 ML NASAL SPRAY NASAL ONE (19:43)
[2024-10-24] MEDS: GuaiFENesin/D-METHORPHAN [SUGAR-FREE] 200-20MG/10 ML SYRUP UDCUP PO ONE (19:43)
[2024-10-24] MEDS: ACETAMINOPHEN 500 MG TABLET PO ONE (19:44)
[2024-10-24] MEDS: IBUPROFEN 600 MG TABLET PO ONE (19:44)
[2024-10-24 19:57] VITALS: BP 110/70; PULSE 81; RESP 20; O2SAT 100
== END 2024-10-24 20:41 | disposition home or self-care (01) ==
LOC: EMS 18:21
DX: J20.9 Acute bronchitis, unspecified (principal); J06.9 Acute upper respiratory infection, unspecified; R07.89 Other chest pain; R49.0 Dysphonia; F17.210 Nicotine dependence, cigarettes, uncomplicated; J45.909 Unspecified asthma, uncomplicated; Z88.1 Allergy status to other antibiotic agents; Z91.018 Allergy to other foods; Z79.899 Other long term (current) drug therapy
CPT/HCPCS: 93005; 99284; Z7502; Z7610

== ENCOUNTER 2024-11-01 10:57 | Emergency (ER) | payer OTHER ==
[~2024-11-01] VITALS: Ht 157.5 cm; Wt 97.6 kg
[~2024-11-01 10:57] MED LIST changes: +ACET-66 PO; +DIPH50CA37 PO; +GUAIFDM PO; +IBUP-1554 PO
[2024-11-01 11:25] VITALS: BP 99/52; PULSE 86; RESP 16; TEMP 98.3; O2SAT 96
[2024-11-01 12:04] LABS: COVID AG,FIA SOURCE NASAL SWAB
[2024-11-01] MEDS ORDERED: METH-812 PO (12:24)
[2024-11-01 12:25] LABS: RAPID GROUP A STREP NEGATIVE (NEGATIVE)
[2024-11-01 12:27] LABS: SARS-COV2 (COVID) ANTIGEN,FIA Negative (Negative)
[2024-11-01] MEDS ORDERED: TRAZ-257 PO (12:27)
[2024-11-01] MEDS ORDERED: SEMA0.5P SQ (12:27)
[2024-11-01] MEDS: METHOCARBAMOL 500 MG TABLET PO ONE (12:32)
[2024-11-01] MEDS: IBUPROFEN 600 MG TABLET PO ONE (12:32)
[2024-11-01 12:44] LABS: INFLUENZA TYPE A NEGATIVE FOR TYPE A (NEGATIVE); INFLUENZA TYPE B NEGATIVE FOR TYPE B (NEGATIVE)
== END 2024-11-01 12:39 | disposition home or self-care (01) ==
LOC: EMS 10:57
DX: J20.9 Acute bronchitis, unspecified (principal); G89.29 Other chronic pain; M54.50 Low back pain, unspecified; J06.9 Acute upper respiratory infection, unspecified; J45.909 Unspecified asthma, uncomplicated; F20.9 Schizophrenia, unspecified; G43.909 Migraine, unspecified, not intractable, without status migrainosus; F17.210 Nicotine dependence, cigarettes, uncomplicated; Z79.899 Other long term (current) drug therapy; Z88.1 Allergy status to other antibiotic agents; Z98.51 Tubal ligation status; Z20.822 Contact with and (suspected) exposure to COVID-19
CPT/HCPCS: 87430; 87804; 99283

== ENCOUNTER 2024-11-06 12:47 | Emergency (ER) | payer OTHER ==
[~2024-11-06] VITALS: Ht 157.5 cm; Wt 97.0 kg
[~2024-11-06 12:47] MED LIST changes: -ACET-3385 PO; -IBUP-1492 PO; +METH-812 PO; +SEMA0.5P SQ; +TRAZ-257 PO
[2024-11-06 12:55] VITALS: BP 115/71; PULSE 94; RESP 18; TEMP 97.8; O2SAT 100
[2024-11-06 14:25] LABS: BASOPHILS % (AUTO) 0.9 % (0.0-2.0); EOSINOPHILS % (AUTO) 1.9 % (1.0-6.0); HEMATOCRIT 36.6 % (36-46); HEMOGLOBIN 11.9 g/dL (12.0-16.0); LYMPHOCYTES # (AUTO) 2.5 K/uL (1.0-4.8); LYMPHOCYTES % (AUTO) 55.3 % (22.0-44.0); MEAN CORPUSCULAR HEMOGLOBIN 28.2 pg (26.0-34.0); MEAN CORPUSCULAR HGB CONC 32.4 G/dL (31.0-37.0); MEAN CORPUSCULAR VOLUME 87 fL (80-100); MONOCYTES # (AUTO) 0.4 K/uL (0.1-1.0); NEUTROPHILS # (AUTO) 1.5 K/uL (1.8-7.7); NEUTROPHILS % (AUTO) 33.9 % (40.0-70.0); PLATELET COUNT (AUTO) 268 K/uL (150-450); RED BLOOD CELL COUNT(AUTO) 4.21 MIL/uL (4.00-5.20); RED CELL DISTRIBUTION WIDTH 15.9 % (11.5-14.5); WHITE BLOOD COUNT (AUTO) 4.4 K/uL (4.5-11.0)
[2024-11-06 14:31] LABS: ANION GAP 8 mmol/L (8-16); CALCIUM, TOTAL 8.8 mg/dL (8.8-10.5); CARBON DIOXIDE 27 mmol/L (22-29); CHLORIDE 102 mmol/L (98-107); CREATININE 1.02 mg/dL (0.60-1.30); GLOMERULAR FILTR. RATE CALC > 60 mL/min (>60); GLUCOSE,RANDOM 80 mg/dL (70-110); POTASSIUM 3.8 mmol/L (3.5-5.1); SODIUM SERUM 137 mmol/L (136-145); UREA NITROGEN, BLOOD 12 mg/dL (7-18)
[2024-11-06 14:32] LABS: LIPASE 35 U/L (16-77)
[2024-11-06 14:38] LABS: ALBUMIN 3.3 g/dL (3.4-5.0); BILIRUBIN,DIRECT 0.1 mg/dL (0.00-0.20); BILIRUBIN,TOTAL 0.2 mg/dL (0.1-1.0)
[2024-11-06 15:25] LABS: APPEARANCE,URINE CLEAR (CLEAR); BILIRUBIN,URINE NEGATIVE (NEGATIVE); COLOR,URINE YELLOW (YELLOW); GLUCOSE, URINE (UA) NEGATIVE (NEGATIVE); KETONES,URINE NEGATIVE (NEGATIVE); LEUKOCYTE ESTERASE ,URINE NEGATIVE (NEGATIVE); NITRATE,URINE NEGATIVE (NEGATIVE); OCCULT BLOOD,URINE LARGE (NEGATIVE); PH,URINE 6.5 (5.0-8.0); PROTEIN,URINE TRACE mg/dL (NEGATIVE); SPECIFIC GRAVITIY, URINE 1.025 (1.003-1.030); UROBILINOGEN,URINE <=1.0 mg/dL (<=1.0)
[2024-11-06 15:43] LABS: BACTERIA,URINE Few /HPF (None Seen); SQUAMOUS EPITHELIAL CELL,UR Few /LPF (None Seen)
== END 2024-11-06 16:01 | disposition home or self-care (01) ==
LOC: EMS 12:47
DX: K62.5 Hemorrhage of anus and rectum (principal); J45.909 Unspecified asthma, uncomplicated; F20.9 Schizophrenia, unspecified; F17.210 Nicotine dependence, cigarettes, uncomplicated; Z88.1 Allergy status to other antibiotic agents; Z88.8 Allergy status to other drugs, medicaments and biological substances; Z98.51 Tubal ligation status; Z79.899 Other long term (current) drug therapy
CPT/HCPCS: 80048; 80076; 81001; 83690; 84703; 85025; 99283

== ENCOUNTER 2024-12-15 12:16 | Emergency (ER) | payer OTHER ==
[~2024-12-15] VITALS: Ht 160 cm; Wt 100.0 kg
[2024-12-15 12:25] VITALS: TEMP 98
[2024-12-15 12:51] LABS: GLUCOMETER DEV NAME(LOC) ER.7; GLUCOSE,POINT OF CARE 101 MG/DL (70-110)
[2024-12-15 12:52] LABS: BASOPHILS % (AUTO) 1.4 % (0.0-2.0); EOSINOPHILS % (AUTO) 0.3 % (1.0-6.0); HEMATOCRIT 38.4 % (36-46); HEMOGLOBIN 12.1 g/dL (12.0-16.0); LYMPHOCYTES # (AUTO) 1.7 K/uL (1.0-4.8); LYMPHOCYTES % (AUTO) 33.7 % (22.0-44.0); MEAN CORPUSCULAR HGB CONC 31.5 G/dL (31.0-37.0); MEAN CORPUSCULAR VOLUME 89 fL (80-100); MONOCYTES # (AUTO) 0.3 K/uL (0.1-1.0); MONOCYTES % (AUTO) 6.3 % (2.0-9.0); NEUTROPHILS % (AUTO) 58.3 % (40.0-70.0); PLATELET COUNT (AUTO) 305 K/uL (150-450); RED BLOOD CELL COUNT(AUTO) 4.33 MIL/uL (4.00-5.20); RED CELL DISTRIBUTION WIDTH 15.3 % (11.5-14.5); WHITE BLOOD COUNT (AUTO) 5.1 K/uL (4.5-11.0)
[2024-12-15 12:54] LABS: ANION GAP 7 mmol/L (8-16); CALCIUM, TOTAL 9.1 mg/dL (8.8-10.5); CARBON DIOXIDE 27 mmol/L (22-29); CHLORIDE 104 mmol/L (98-107); CREATININE 1.09 mg/dL (0.60-1.30); GLOMERULAR FILTR. RATE CALC > 60 mL/min (>60); GLUCOSE,RANDOM 82 mg/dL (70-110); POTASSIUM 3.6 mmol/L (3.5-5.1); SODIUM SERUM 138 mmol/L (136-145); UREA NITROGEN, BLOOD 13 mg/dL (7-18)
[2024-12-15 13:03] LABS: CREATINE KINASE, TOTAL ONLY 77 U/L (26-192)
[2024-12-15 13:04] LABS: TROPONIN I-HIGH SENSITIVITY Less Than 4 ng/L (<51)
[2024-12-15 13:06] LABS: LACTIC ACID 1.7 mmol/L (0.4-2.0)
[2024-12-15 13:21] LABS: APPEARANCE,URINE CLEAR (CLEAR); BILIRUBIN,URINE NEGATIVE (NEGATIVE); COLOR,URINE YELLOW (YELLOW); GLUCOSE, URINE (UA) NEGATIVE (NEGATIVE); KETONES,URINE TRACE mg/dL (NEGATIVE); LEUKOCYTE ESTERASE ,URINE NEGATIVE (NEGATIVE); NITRATE,URINE NEGATIVE (NEGATIVE); OCCULT BLOOD,URINE NEGATIVE (NEGATIVE); PROTEIN,URINE TRACE mg/dL (NEGATIVE); UROBILINOGEN,URINE <=1.0 mg/dL (<=1.0)
[2024-12-15 13:25] LABS: ALCOHOL, URINE DRUG SCREEN NEGATIVE (NEGATIVE); AMPHET/METH SCREEN,URINE NEGATIVE (NEGATIVE); BARBITURATE SCREEN, URINE NEGATIVE (NEGATIVE); BENZODIAZEPINES SCREEN,URINE NEGATIVE (NEGATIVE); CANNABINOID SCREEN,URINE NEGATIVE (NEGATIVE); COCAINE SCREEN,URINE NEGATIVE (NEGATIVE); METHADONE SCREEN, URINE NEGATIVE (NEGATIVE); OPIATE SCREEN,URINE NEGATIVE (NEGATIVE); PHENCYCLIDINE SCREEN,URINE NEGATIVE (NEGATIVE)
[2024-12-15 15:33] VITALS: BP 103/71; PULSE 77; RESP 16; O2SAT 100
== END 2024-12-15 16:12 | disposition home or self-care (01) ==
LOC: EMS 12:19
DX: M54.50 Low back pain, unspecified (principal); R10.2 Pelvic and perineal pain; R42 Dizziness and giddiness; J45.909 Unspecified asthma, uncomplicated; F20.9 Schizophrenia, unspecified; Z91.011 Allergy to milk products; Z88.1 Allergy status to other antibiotic agents; Z88.8 Allergy status to other drugs, medicaments and biological substances; Z87.440 Personal history of urinary (tract) infections; Z79.899 Other long term (current) drug therapy
CPT/HCPCS: 71045; 80048; 80307; 81003; 82550; 82962; 83605; 84484; 84702; 85025; 93005; 99285; 36415-L1; 36415-TC

== ENCOUNTER 2025-02-08 23:25 | Emergency (ER) | payer MEDICAID, OTHER ==
[~2025-02-08] VITALS: Ht 160 cm; Wt 96.4 kg
[~2025-02-08 23:25] MED LIST changes: +LIDO-57 TP; -LIDO700A15 TP
[2025-02-08 23:43] VITALS: BP 131/91; PULSE 106; RESP 16; TEMP 98.2; O2SAT 100
[2025-02-09] MEDS ORDERED: OFLOXACIN 0.3% 5 ML OTIC SOLUTION AS ONE (00:30)
[2025-02-09] MEDS ORDERED: OFLO5DRO4 AS (00:55)
[2025-02-09] MEDS: DiphenhydrAMINE HCL 25 MG CAPSULE PO ONE (01:10)
[2025-02-09] MEDS ORDERED: ACET-3385 PO (03:42)
== END 2025-02-09 03:45 | disposition home or self-care (01) ==
LOC: EMS 23:25
DX: H60.392 Other infective otitis externa, left ear (principal); J45.909 Unspecified asthma, uncomplicated; G43.909 Migraine, unspecified, not intractable, without status migrainosus; F20.9 Schizophrenia, unspecified; F17.210 Nicotine dependence, cigarettes, uncomplicated; Z98.51 Tubal ligation status; Z88.1 Allergy status to other antibiotic agents; Z79.899 Other long term (current) drug therapy; Z98.890 Other specified postprocedural states; Z91.018 Allergy to other foods; Z91.011 Allergy to milk products
CPT/HCPCS: 99283

== ENCOUNTER 2025-05-14 14:52 | Emergency (ER) | payer MEDICAID, OTHER ==
[~2025-05-14] VITALS: Ht 165.1 cm; Wt 94.1 kg
[~2025-05-14 14:52] MED LIST changes: +ACET-3385 PO; +OFLO5DRO4 AS
[2025-05-14 15:17] VITALS: BP 122/83; PULSE 97; RESP 16; TEMP 98.2; O2SAT 98
[2025-05-14] MEDS: ACETAMINOPHEN 500 MG TABLET PO ONE (18:21)
== END 2025-05-14 18:28 | disposition home or self-care (01) ==
LOC: EMS 14:53
DX: F15.10 Other stimulant abuse, uncomplicated (principal); F20.9 Schizophrenia, unspecified; R53.1 Weakness; R42 Dizziness and giddiness; J45.909 Unspecified asthma, uncomplicated; G43.909 Migraine, unspecified, not intractable, without status migrainosus; F17.210 Nicotine dependence, cigarettes, uncomplicated; Z79.899 Other long term (current) drug therapy; Z91.018 Allergy to other foods; Z98.51 Tubal ligation status; Z88.1 Allergy status to other antibiotic agents; W49.04XA Ring or other jewelry causing external constriction, initial encounter
CPT/HCPCS: 99283; 99284

== ENCOUNTER 2025-06-11 14:39 | Emergency (ER) | payer MEDICAID, OTHER ==
[~2025-06-11] VITALS: Ht 160 cm; Wt 103.0 kg
[~2025-06-11 14:39] MED LIST changes: -ACET-66 PO; -GUAIFDM PO; -IBUP-1554 PO; -LIDO-57 TP; -METH-812 PO; -OFLO5DRO4 AS
[2025-06-11 14:45] VITALS: BP 146/98; PULSE 110; RESP 16; TEMP 98.2; O2SAT 100
[2025-06-11] MEDS ORDERED: AMOX250C4 PO (15:29)
[2025-06-11] MEDS ORDERED: PRED-554 PO (15:29)
[2025-06-11] MEDS ORDERED: ARIP15TA27 PO (15:30)
[2025-06-11] MEDS ORDERED: TRAZ-257 PO (15:30)
[2025-06-11] MEDS ORDERED: MONT-35 PO (15:31)
== END 2025-06-11 16:45 | disposition home or self-care (01) ==
LOC: EMS 14:39
DX: H66.92 Otitis media, unspecified, left ear (principal); J45.909 Unspecified asthma, uncomplicated; F20.9 Schizophrenia, unspecified; G43.909 Migraine, unspecified, not intractable, without status migrainosus; Z76.0 Encounter for issue of repeat prescription; Z79.899 Other long term (current) drug therapy; Z87.440 Personal history of urinary (tract) infections; Z88.1 Allergy status to other antibiotic agents; Z91.0110 Allergy to milk products, unspecified; Z91.018 Allergy to other foods; Z98.51 Tubal ligation status
CPT/HCPCS: 99283; Z7502

== ENCOUNTER 2025-06-16 10:06 | Emergency (ER) | payer MEDICAID, OTHER ==
[~2025-06-16] VITALS: Ht 160 cm; Wt 89.0 kg
[~2025-06-16 10:06] MED LIST changes: +AMOX250C4 PO; +MONT-35 PO; +PRED-554 PO
[2025-06-16 10:14] VITALS: TEMP 98.1
[2025-06-16 11:00] VITALS: BP 128/75; PULSE 72; RESP 18; O2SAT 97
[2025-06-16 12:02] LABS: APPEARANCE,URINE HAZY (CLEAR); GLUCOSE, URINE (UA) NEGATIVE (NEGATIVE); LEUKOCYTE ESTERASE ,URINE LARGE (NEGATIVE); NITRATE,URINE POSITIVE (NEGATIVE); OCCULT BLOOD,URINE NEGATIVE (NEGATIVE); SPECIFIC GRAVITIY, URINE 1.023 (1.003-1.030)
[2025-06-16 12:10] LABS: SQUAMOUS EPITHELIAL CELL,UR Many /LPF (None Seen)
[2025-06-16] MEDS ORDERED: CEPH-558 PO (12:54)
[2025-06-16] MEDS ORDERED: DOXY-354 PO (12:54)
[2025-06-16] MEDS ORDERED: EMTR1TAB53 PO (12:55)
[2025-06-16] MEDS ORDERED: IBUP-1492 PO (13:11)
[2025-06-16] MEDS: DOXYCYCLINE HYCLATE 100 MG TABLET PO ONE (13:27)
[2025-06-16] MEDS: PHENAZOPYRIDINE HCL 100 MG TABLET PO ONE (13:27)
[2025-06-16] MEDS: CefTRIAXone SODIUM 1 GM/VIAL IM ONE (13:27)
[2025-06-16] MEDS: LIDOCAINE/PF 1% 2 ML VIAL IM ONE (13:28)
== END 2025-06-16 14:23 | disposition home or self-care (01) ==
LOC: EMS 10:10
DX: N39.0 Urinary tract infection, site not specified (principal); R30.0 Dysuria; R35.0 Frequency of micturition; R30.9 Painful micturition, unspecified; F20.9 Schizophrenia, unspecified; J45.909 Unspecified asthma, uncomplicated; G43.909 Migraine, unspecified, not intractable, without status migrainosus; F17.210 Nicotine dependence, cigarettes, uncomplicated; F15.90 Other stimulant use, unspecified, uncomplicated; Z79.624 Long term (current) use of inhibitors of nucleotide synthesis; Z88.1 Allergy status to other antibiotic agents; Z91.0110 Allergy to milk products, unspecified; Z91.018 Allergy to other foods; Z98.51 Tubal ligation status; Z76.0 Encounter for issue of repeat prescription; Z79.899 Other long term (current) drug therapy; Z11.3 Encounter for screening for infections with a predominantly sexual mode of transmission
CPT/HCPCS: 99283; 81001; 87077; 87086; 87186; 87491; 87591; 96372; J0696; J3490

== ENCOUNTER 2025-06-18 12:24 | Emergency (ER) | payer MEDICAID, OTHER ==
[~2025-06-18] VITALS: Ht 160 cm; Wt 90.9 kg
[~2025-06-18 12:24] MED LIST changes: -ACET-3385 PO; +CEPH-558 PO; -DIPH50CA37 PO; +DOXY-354 PO; +EMTR1TAB53 PO; +IBUP-1492 PO; -POLY119P3 PO; -PRED-554 PO; -SEMA0.5P SQ
[2025-06-18 12:32] VITALS: BP 119/84; PULSE 120; RESP 18; TEMP 98; O2SAT 99
== END 2025-06-18 14:24 | disposition left against medical advice (07) ==
LOC: EMS 12:24
DX: M54.50 Low back pain, unspecified (principal); Z53.21 Procedure and treatment not carried out due to patient leaving prior to being seen by health care provider
CPT/HCPCS: 99281; Z7502

== ENCOUNTER 2025-07-01 16:53 | Emergency (ER) | payer MEDICAID, OTHER ==
[~2025-07-01] VITALS: Ht 160 cm; Wt 90.9 kg
[2025-07-01 17:01] VITALS: TEMP 97.5
[2025-07-01 18:13] LABS: PLATELET COUNT (AUTO) 316 K/uL (150-450); RED BLOOD CELL COUNT(AUTO) 4.15 MIL/uL (4.00-5.20); RED CELL DISTRIBUTION WIDTH 16.8 % (11.5-14.5); WHITE BLOOD COUNT (AUTO) 4.8 K/uL (4.5-11.0)
[2025-07-01 18:20] LABS: CALCIUM, TOTAL 8.3 mg/dL (8.8-10.5); CREATININE 0.75 mg/dL (0.60-1.30); GLOMERULAR FILTR. RATE CALC > 60 mL/min (>60); GLUCOSE,RANDOM 98 mg/dL (70-110); UREA NITROGEN, BLOOD 7 mg/dL (7-18)
[2025-07-01 18:28] LABS: SODIUM SERUM 138 mmol/L (136-145)
[2025-07-01 18:32] LABS: HCG,QUANTITATIVE < 1 mIU/mL (0-6)
[2025-07-01] MEDS ORDERED: IBUP-1554 PO (20:57)
[2025-07-01] MEDS ORDERED: CEPH-558 PO (20:57)
[2025-07-01] MEDS ORDERED: ACET-66 PO (20:57)
[2025-07-01] MEDS ORDERED: CORTSUSP AS (20:57)
[2025-07-01 21:00] VITALS: BP 127/74; PULSE 88; RESP 18; O2SAT 100
[2025-07-01] MEDS: CEPHALEXIN MONOHYDRATE 500 MG CAPSULE PO ONE (21:02)
[2025-07-01] MEDS: ACETAMINOPHEN 500 MG TABLET PO ONE (21:03)
[2025-07-01] MEDS: KETOROLAC TROMETHAMINE 60 MG/2 ML VIAL IM ONE (21:03)
== END 2025-07-01 23:20 | disposition home or self-care (01) ==
LOC: EMS 16:53
DX: N39.0 Urinary tract infection, site not specified (principal); H60.92 Unspecified otitis externa, left ear; G89.29 Other chronic pain; M54.50 Low back pain, unspecified; F20.9 Schizophrenia, unspecified; J45.909 Unspecified asthma, uncomplicated; G43.909 Migraine, unspecified, not intractable, without status migrainosus; F17.210 Nicotine dependence, cigarettes, uncomplicated; F15.90 Other stimulant use, unspecified, uncomplicated; Z79.624 Long term (current) use of inhibitors of nucleotide synthesis; Z91.0110 Allergy to milk products, unspecified; Z91.018 Allergy to other foods; Z98.51 Tubal ligation status; Z88.1 Allergy status to other antibiotic agents; Z79.1 Long term (current) use of non-steroidal anti-inflammatories (NSAID); Z79.899 Other long term (current) drug therapy; Z98.890 Other specified postprocedural states
CPT/HCPCS: 99284; 80048; 83690; 84702; 85025; 36415; 96372; J1885